=== PATIENT | male | born 1945 | race American Indian/Alaskan Native ===

== ENCOUNTER 2016-12-15 07:35 | Inpatient (IN) | payer MEDICARE, OTHER ==
[2016-12-15 08:35] LABS: BASO # 0.1 K/uL (0.0-0.2); EOS # 0.1 K/uL (0.0-0.7); EOS % 1.3 % (0.0-4.0); HEMATOCRIT 24.9 % (35.0-51.0); LYMPH # 2.2 K/uL (1.0-4.3); LYMPH % 22.2 % (20.0-40.0); MEAN CORPUSCULAR HEMOGLOBIN 17.2 pg (27.0-31.0); MEAN CORPUSCULAR HGB CONC 26.6 g/dL (33.0-37.0); MEAN PLATELET VOLUME 7.4 fL (7.2-11.7); MONO % 10.3 % (0.0-10.0); NRBC % 0.1 % (0.0-2.0); RED CELL DISTRIBUTION WIDTH 19.2 % (11.5-14.5); WHITE BLOOD COUNT 9.8 K/uL (4.8-10.8)
[2016-12-15 08:41] LABS: CHLORIDE 103 mmol/L (98-107); POTASSIUM 3.7 mmol/L (3.6-5.2); SODIUM 139 mmol/L (132-148)
[2016-12-15 08:43] LABS: BILIRUBIN,TOTAL 0.2 mg/dL (0.2-1.3); GFR AFRICAN-AMERICAN > 60; MEAN CELL VOLUME 64.8 fL (80.0-94.0)
[2016-12-15 08:44] LABS: ALB/GLOB RATIO 1.1 (1.0-2.1); ALKALINE PHOSPHATASE 111 U/L (38-126); ALT/SGPT 14 U/L (21-72); AST/SGOT 21 U/L (17-59); BLOOD UREA NITROGEN 9 mg/dL (9-20); CARBON DIOXIDE 24 mmol/L (22-30); GLUCOSE,RANDOM 130 mg/dL (75-110); TOTAL PROTEIN 7.8 g/dL (6.3-8.3)
[2016-12-15 08:45] LABS: CALCIUM 9.4 mg/dl (8.6-10.4)
[2016-12-15 08:52] LABS: INR 1.2
--- NOTE | 2016-12-15 09:55 | CP.PCM.PN ---
Subjective - Date & Time of Evaluation Date of Evaluation: 12/15/16 Time of Evaluation: 09:30 - Subjective Subjective: Medicine note- Dr. Parsons's service Patient was seen and examined at bedside. Patient was sent in by Dr. Parsons after being told that he was anemic on labs done the previous week. Patient reports no complaints at all. He has a hx of Htn, and his last bloodwork before last week was about 2 years ago. He denies any chest pain, palpitations, dyspnea , dizziness, lightheadedness, bloody or black stools. Patient report she is compliant with his BP med. Last colonoscopy was about 3 years ago. Objective - Vital Signs/Intake and Output Vital Signs (last 24 hours): Temp Pulse Resp BP Pulse Ox 98.2 F 111 H 16 145/68 100 12/15/16 07:45 12/15/16 07:45 12/15/16 07:45 12/15/16 07:45 12/15/16 07:45 - Medications Medications: Current Medications Amlodipine Besylate (Norvasc) 10 mg PO DAILY [facility] Famotidine (Pepcid) 20 mg PO BID [facility] Home Med (Amlodipine Besylate/Benazepril [Amlodipine-Benazepril 10-20 Mg]) 1 cap PO DAILY [facility] - Labs Labs: 12/15/16 08:27 12/15/16 08:27 PT 13.6 SECONDS (9.7-12.2) H 12/15/16 08:27 INR 1.2 12/15/16 08:27 APTT 29 SECONDS (21-34) 12/15/16 08:27 - Constitutional Appears: Non-toxic, No Acute Distress - Head Exam Head Exam: ATRAUMATIC, NORMAL INSPECTION, NORMOCEPHALIC - Eye Exam Pupil Exam: NORMAL ACCOMODATION, PERRL - ENT Exam ENT Exam: Mucous Membranes Moist - Respiratory Exam Respiratory Exam: Clear to Ausculation Bilateral, NORMAL BREATHING PATTERN. absent: Prolonged Expiratory Phase, Rales, Rhonchi, Wheezes - Cardiovascular Exam Cardiovascular Exam: REGULAR RHYTHM, +S1, +S2 - GI/Abdominal Exam GI & Abdominal Exam: Soft, Normal Bowel Sounds. absent: Tenderness, Diminished Bowel Sounds, Hypoactive Bowel Sounds - Extremities Exam Extremities Exam: Normal Capillary Refill, Normal Inspection - Neurological Exam Neurological Exam: Alert, Awake, Oriented x3 - Psychiatric Exam Psychiatric exam: Normal Affect, Normal Mood - Skin Skin Exam: Dry, Intact, Normal Color, Warm Assessment and Plan (1) Severe anemia Assessment & Plan: Hgb on admission - 6.6 Hct 24.9 Transfuse 2U PRBC Consult hemeonc- Dr. Aston emerson Consult GI- Dr. Quinonez f/u B12, Folate, Iron Studies f/u stool occult Status: Acute (2) Hypertension Assessment & Plan: Continue home med:Norvasc 10mg PO Daily, Enalapril 10mg PO Daily (equivalent to home Benazepril) Status: Acute (3) Prophylactic measure Assessment & Plan: SCDs Pepcid 20mg PO BID Status: Acute
--- NOTE | 2016-12-15 10:02 | C.PDOC ---
History Of Present Illness 71-year-old male, PMHx includes Hypertension, is sent to the emergency department by Dr Parsons due to abnormal labs. Patient w/ no physical complaints at this time. Denies any blood in urine or stool. No other complaints at this time. Chief Complaint (Nursing): Abnormal Labs History Per: Patient History/Exam Limitations: no limitations Past Medical History Reviewed: Historical Data, Nursing Documentation, Vital Signs Vital Signs: Last Vital Signs Temp 99.1 F 12/15/16 13:17 Pulse 86 12/15/16 13:17 Resp 18 12/15/16 13:17 BP 122/59 L 12/15/16 13:17 Pulse Ox 98 12/15/16 13:17 - Medical History PMH: HTN Family History: States: Unknown Family Hx - Social History Hx Alcohol Use: No Hx Substance Use: No - Immunization History Hx Tetanus Toxoid Vaccination: No Hx Influenza Vaccination: No Hx Pneumococcal Vaccination: No Review Of Systems Except As Marked, All Systems Reviewed And Found Negative. Constitutional: Negative for: Fever, Chills Respiratory: Negative for: Shortness of Breath Gastrointestinal: Negative for: Vomiting Skin: Negative for: Rash Neurological: Negative for: Weakness, Numbness Physical Exam - Physical Exam Appears: Non-toxic, No Acute Distress Skin: Warm, Dry, No Rash Head: Atraumatic, Normacephalic Eye(s): bilateral: Normal Inspection, PERRL Nose: Normal Oral Mucosa: Moist Lips: Normal Appearing Neck: Normal ROM Respiratory: No Accessory Muscle Use Extremity: Normal ROM Neurological/Psych: Oriented x3, Normal Speech ED Course And Treatment - Laboratory Results Result Diagrams: 12/15/16 08:27 12/15/16 08:27 O2 Sat by Pulse Oximetry: 100 Medical Decision Making Medical Decision Making: Case discussed w/ Dr Parsons, states to admit patient under his service. Disposition - Disposition Disposition Time: 08:50 Condition: STABLE - Clinical Impression Clinical Impression: Anemia - Scribe Statement The provider has reviewed the documentation as recorded by the Efren Murray All medical record entries made by the Scribe were at my direction and personally dictated by me. I have reviewed the chart and agree that the record accurately reflects my personal performance of the history, physical exam, medical decision making, and the department course for this patient. I have also personally directed, reviewed, and agree with the discharge instructions and disposition.
--- NOTE | 2016-12-15 11:45 | HP ---
The patient is a 71-year-old male admitted to the hospital with chief complaint of severe anemia. Th e patient has hemoglobin of 6.1. The patient decided to come to the Emergency Room for further manage ment of severe anemia. The patient ____ hypertension. The patient denies hemoptysis or hematemesis o r melena. Denies abdominal pain. The patient said he had ____ in [facility]. He underwent __ __ colostomy which was normal. The patient ____ workup. PHYSICAL EXAMINATION: GENERAL: The patient is awake, alert and oriented. VITAL SIGNS: Temperature 98, pulse 90. HEENT: Within normal limits. NECK: Supple. CHEST: Symmetrical. HEART: Regular. ABDOMEN: Soft. EXTREMITIES: No edema. The patient suffers from severe anemia. The patient is ____ gastrointestinal evaluation and hematolo gy evaluation. Supportive care. Have blood transfusion. Stephanie Bond MD cc: [id number] TT: 12/15/2016 10:53:05 sc
[2016-12-15 11:48] LABS: RETIC% 2.3 % (0.5-1.5)
[2016-12-15 12:55] LABS: FOLATE > 20.0 ng/mL
[2016-12-15] MEDS ORDERED: Peg-Electrolyte Oral Soln 4L (Golytely) PO ONE (13:00)
[2016-12-15 14:56] LABS: PROSTATE SPECIFIC ANTIGEN 6.31 ng/mL (0.00-4.0)
[2016-12-15 14:58] LABS: CA 19-9 < 1.4 U/mL (0-37)
[2016-12-15] MEDS ORDERED: Bisacodyl 5mg EC Tab PO ONE (17:00)
--- NOTE | 2016-12-16 03:46 | CP.PCM.CON ---
History of Present Illness - History of Present Illness History of Present Illness: 71 year old male with a history of HTN admitted with anemia. The patient was found to have a low hgb by his PMD and told to come to the hospital. He denies known bleeding and bruising. He denies chest pain and shortness of breath. He does admit to progressive fatigue and diminished appetite. Past medical history: HTN Past surgical history: None Family history: Father had stomach cancer Social history: 1/2ppd x 45 years, denies alcohol and illicit drug use. Allergies: NKA Review of systems: All remaining review of systems including HEENT, cardiovascular, respiratory, gastrointestinal, genitourinary, musculoskeletal, dermatologic, neurologic, and psychiatric are negative unless mentioned in the HPI. Past Patient History - Infectious Disease Hx of Infectious Diseases: None - Past Medical History & Family History Past Medical History?: Yes - Past Social History Smoking Status: Light Smoker < 10 Cigarettes Daily - CARDIAC Hx Cardiac Disorders: Yes Hx Hypertension: Yes - PULMONARY Hx Respiratory Disorders: No - NEUROLOGICAL Hx Neurological Disorder: No - HEENT Hx HEENT Problems: No - RENAL Hx Chronic Kidney Disease: No - ENDOCRINE/METABOLIC Hx Endocrine Disorders: No - HEMATOLOGICAL/ONCOLOGICAL Hx Blood Disorders: No - INTEGUMENTARY Hx Dermatological Problems: No - MUSCULOSKELETAL/RHEUMATOLOGICAL Hx Musculoskeletal Disorders: No Hx Falls: No - GASTROINTESTINAL Hx Gastrointestinal Disorders: No - GENITOURINARY/GYNECOLOGICAL Hx Genitourinary Disorders: No - PSYCHIATRIC Hx Psychophysiologic Disorder: No Hx Substance Use: No - SURGICAL HISTORY Hx Surgeries: No - ANESTHESIA Hx Anesthesia: No Meds Allergies/Adverse Reactions: Allergies Allergy/AdvReac Type Severity Reaction Status Date / Time No Known Allergies Allergy Verified 12/15/16 07:50 - Medications Medications: Current Medications Amlodipine Besylate (Norvasc) 10 mg PO DAILY [facility] Last Admin: 12/15/16 10:59 Dose: Not Given Enalapril Maleate (Vasotec) 10 mg PO DAILY [facility] Last Admin: 12/15/16 10:59 Dose: Not Given Famotidine (Pepcid) 20 mg PO BID [facility] Last Admin: 12/15/16 18:02 Dose: 20 mg Ferric Sodium Gluconate Complex (Ferrlecit) 125 mg IVPB DAILY [facility] Stop: 12/20/16 10:01 Metoclopramide HCl (Reglan) 5 mg IVP ACHS [facility] Last Admin: 12/15/16 22:09 Dose: 5 mg Physical Exam - Head Exam Head Exam: ATRAUMATIC - Eye Exam Eye Exam: Normal appearance - ENT Exam ENT Exam: Mucous Membranes Dry - Respiratory Exam Respiratory Exam: NORMAL BREATHING PATTERN - Cardiovascular Exam Cardiovascular Exam: +S1, +S2 - GI/Abdominal Exam GI & Abdominal Exam: Normal Bowel Sounds - Extremities Exam Extremities exam: Positive for: normal inspection - Neurological Exam Neurological exam: Oriented x3 - Psychiatric Exam Psychiatric exam: Normal Affect, Normal Mood - Skin Skin Exam: Warm Results - Vital Signs Recent Vital Signs: Last Vital Signs Temp 98.4 F 12/16/16 00:00 Pulse 79 12/16/16 00:00 Resp 20 12/16/16 00:00 BP 129/63 12/16/16 00:00 Pulse Ox 100 12/16/16 00:00 - Labs Result Diagrams: 12/15/16 08:27 12/15/16 08:27 Labs: Laboratory Results - last 24 hr 12/15/16 12/15/16 11:34 14:05 % Saturation 4 L Carcinoembryonic Ag 4.0 H CA 19-9 Antigen < 1.4 Prostate Specific Ag 6.31 H Assessment & Plan (1) Anemia Assessment and Plan: work up consistent with iron deficiency for GI evaluation s/p PRBC transfusion IV iron Status: Acute (2) Elevated CEA Assessment and Plan: for GI evaluation Status: Acute (3) PSA elevation Assessment and Plan: outpatient urologic evaluation Status: Acute
[2016-12-16 05:17] LABS: TOTAL PROTEIN, SERUM 6.9 g/dL (6.1-8.1)
[2016-12-16 07:33] LABS: CHLORIDE 103 mmol/L (98-107); POTASSIUM 3.9 mmol/L (3.6-5.2); SODIUM 138 mmol/L (132-148)
[2016-12-16 07:35] LABS: GFR AFRICAN-AMERICAN > 60
[2016-12-16 07:36] LABS: ALKALINE PHOSPHATASE 117 U/L (38-126); ALT/SGPT 16 U/L (21-72); AST/SGOT 24 U/L (17-59); BILIRUBIN,TOTAL 0.8 mg/dL (0.2-1.3); BLOOD UREA NITROGEN 7 mg/dL (9-20); CALCIUM 8.9 mg/dl (8.6-10.4); CARBON DIOXIDE 26 mmol/L (22-30); GLUCOSE,RANDOM 82 mg/dL (75-110); TOTAL PROTEIN 7.5 g/dL (6.3-8.3)
[2016-12-16 07:38] LABS: BASO # 0.1 K/uL (0.0-0.2); BASO % 0.8 % (0.0-2.0); EOS # 0.2 K/uL (0.0-0.7); EOS % 1.5 % (0.0-4.0); HEMATOCRIT 30.9 % (35.0-51.0); LYMPH # 2.6 K/uL (1.0-4.3); LYMPH % 24.7 % (20.0-40.0); MEAN CORPUSCULAR HEMOGLOBIN 19.1 pg (27.0-31.0); MEAN CORPUSCULAR HGB CONC 28.4 g/dL (33.0-37.0); MEAN PLATELET VOLUME 7.6 fL (7.2-11.7); MONO # 1.1 K/uL (0.0-0.8); MONO % 10.9 % (0.0-10.0); NRBC % 0.1 % (0.0-2.0); RED CELL DISTRIBUTION WIDTH 22.2 % (11.5-14.5); WHITE BLOOD COUNT 10.5 K/uL (4.8-10.8)
[2016-12-16 07:45] LABS: MEAN CELL VOLUME 67.4 fL (80.0-94.0)
--- NOTE | 2016-12-16 10:45 | CP.PCM.PN ---
Subjective - Date & Time of Evaluation Date of Evaluation: 12/16/16 Time of Evaluation: 09:00 - Subjective Subjective: Medicine Progress Note- Dr. Parsons's Service: Patient seen and examined at bedside this AM. Patient is NPO for EGD this AM. Patient is s/p units of PRBC transfused overnight. Patient tolerated transfusion without any issues. He was NPO overnight for EGD. Objective - Vital Signs/Intake and Output Vital Signs (last 24 hours): Temp Pulse Resp BP Pulse Ox 98.3 F 71 20 115/67 100 12/16/16 07:48 12/16/16 07:48 12/16/16 07:48 12/16/16 10:39 12/16/16 07:48 Intake and Output: 12/16/16 12/16/16 06:59 18:59 Intake Total 0 Balance 0 - Medications Medications: Current Medications Amlodipine Besylate (Norvasc) 10 mg PO DAILY [facility] Last Admin: 12/16/16 10:43 Dose: Not Given Enalapril Maleate (Vasotec) 10 mg PO DAILY [facility] Last Admin: 12/16/16 10:39 Dose: 10 mg Famotidine (Pepcid) 20 mg PO BID [facility] Last Admin: 12/16/16 09:40 Dose: Not Given Ferric Sodium Gluconate Complex (Ferrlecit) 125 mg IVPB DAILY [facility] Stop: 12/20/16 10:01 Metoclopramide HCl (Reglan) 5 mg IVP ACHS [facility] Last Admin: 12/16/16 08:30 Dose: 5 mg - Labs Labs: 12/16/16 07:13 12/16/16 07:13 PT 13.6 SECONDS (9.7-12.2) H 12/15/16 08:27 INR 1.2 12/15/16 08:27 APTT 29 SECONDS (21-34) 12/15/16 08:27 - Constitutional Appears: No Acute Distress - Head Exam Head Exam: NORMAL INSPECTION, NORMOCEPHALIC - Eye Exam Eye Exam: EOMI, Normal appearance - ENT Exam ENT Exam: Mucous Membranes Moist - Neck Exam Neck Exam: Normal Inspection - Respiratory Exam Respiratory Exam: Clear to Ausculation Bilateral, NORMAL BREATHING PATTERN - Cardiovascular Exam Cardiovascular Exam: REGULAR RHYTHM, +S1, +S2 - GI/Abdominal Exam GI & Abdominal Exam: Soft. absent: Distended, Tenderness - Extremities Exam Extremities Exam: Full ROM, Normal Inspection - Back Exam Back Exam: NORMAL INSPECTION - Neurological Exam Neurological Exam: Alert, Awake, Oriented x3 - Psychiatric Exam Psychiatric exam: Normal Affect, Normal Mood - Skin Skin Exam: Normal Color, Warm Assessment and Plan - Assessment and Plan (Free Text) Assessment: (1) Severe anemia Assessment & Plan: H/H today 8.8/30.9. H/H admission 6.6/24.9 s/p transfusion last night 2U PRBC Consult hemeonc- Dr. Aston emerson f/u Reticulocyte count and SPEP f/u B12, Folate, Iron Studies Consult GI- Dr. Quinonez As per Dr. Quinonez, patient for EGD/ colonoscopy today. f/u CEA, CA 19-9 and PSA f/u stool occult Status: Acute (2) Hypertension Assessment & Plan: Continue home med:Norvasc 10mg PO Daily, Enalapril 10mg PO Daily (equivalent to home Benazepril) Status: Acute (3) Prophylactic measure Assessment & Plan: SCDs Pepcid 20mg PO BID Status: Acute All management as per Dr. Parsons
[2016-12-16] MEDS ORDERED: Propofol 10 mg/ml Inj (20 ML) ONE (11:23)
[2016-12-16] MEDS: Ferric Sodium Gluconat Complex 62.5 mg/5 ml Vial IVPB SCH (14:29)
[2016-12-16 15:59] VITALS: RESP 20
[2016-12-16 20:20] LABS: BETA 1 GLOBULIN 0.5 g/dL (0.4-0.6); BETA 2 GLOBULIN 0.4 g/dL (0.2-0.5); GAMMA GLOBULIN 1.6 g/dL (0.8-1.7)
[2016-12-17 08:05] LABS: BASO # 0.1 K/uL (0.0-0.2); EOS # 0.2 K/uL (0.0-0.7); EOS % 2.1 % (0.0-4.0); HEMATOCRIT 31.3 % (35.0-51.0); LYMPH # 2.1 K/uL (1.0-4.3); LYMPH % 21.6 % (20.0-40.0); MEAN CELL VOLUME 67.5 fL (80.0-94.0); MEAN CORPUSCULAR HEMOGLOBIN 19.1 pg (27.0-31.0); MEAN CORPUSCULAR HGB CONC 28.3 g/dL (33.0-37.0); MEAN PLATELET VOLUME 7.3 fL (7.2-11.7); MONO # 1.1 K/uL (0.0-0.8); NRBC % 0.1 % (0.0-2.0); RED CELL DISTRIBUTION WIDTH 22.3 % (11.5-14.5); WHITE BLOOD COUNT 9.8 K/uL (4.8-10.8)
[2016-12-17 08:12] LABS: IRON 42 ug/dL (49-181)
[2016-12-17 08:16] LABS: CHLORIDE 104 mmol/L (98-107); SODIUM 141 mmol/L (132-148)
[2016-12-17 08:17] LABS: POTASSIUM 3.7 mmol/L (3.6-5.2)
[2016-12-17 08:19] LABS: ALB/GLOB RATIO 0.9 (1.0-2.1); ALKALINE PHOSPHATASE 116 U/L (38-126); ALT/SGPT 10 U/L (21-72); AST/SGOT 42 U/L (17-59); BILIRUBIN,TOTAL 0.2 mg/dL (0.2-1.3); BLOOD UREA NITROGEN 7 mg/dL (9-20); CALCIUM 9.1 mg/dl (8.6-10.4); CARBON DIOXIDE 24 mmol/L (22-30); GFR AFRICAN-AMERICAN > 60; GLUCOSE,RANDOM 97 mg/dL (75-110); TOTAL PROTEIN 7.3 g/dL (6.3-8.3)
[2016-12-17 08:20] LABS: MAGNESIUM 2.1 mg/dL (1.6-2.3)
[2016-12-17 08:23] VITALS: PULSE 79; TEMP 98.1; O2SAT 99
[2016-12-17] MEDS: Ferric Sodium Gluconat Complex 62.5 mg/5 ml Vial IVPB SCH (09:17)
[2016-12-17 09:20] VITALS: BP 130/58
--- NOTE | 2016-12-17 11:21 | CP.PCM.PN ---
Subjective - Date & Time of Evaluation Date of Evaluation: 12/17/16 Time of Evaluation: 11:00 - Subjective Subjective: [employer] NOTES 71 ye old male admitted for anemia s/p PRBC transfusion s/p - EGD/colnoscopy hgb - improved after transfusion - 8.9>8.8>6.[address] Lico noriega . cleared for discharge home today and f/u with Dr. Lico noriega and Dr. Camarillo office in 1 week Discharge instructions discussed with patient , who understands and agree with plan Pt instructed to returns to ED if symptoms returns Objective - Vital Signs/Intake and Output Vital Signs (last 24 hours): Temp Pulse Resp BP Pulse Ox 98.1 F 79 20 130/58 L 99 12/17/16 08:00 12/17/16 08:00 12/17/16 08:00 12/17/16 09:18 12/17/16 08:00 Intake and Output: 12/17/16 12/17/16 06:59 18:59 Intake Total 250 120 Balance 250 120 - Medications Medications: Current Medications Amlodipine Besylate (Norvasc) 10 mg PO DAILY [facility] Last Admin: 12/17/16 09:20 Dose: 10 mg Enalapril Maleate (Vasotec) 10 mg PO DAILY [facility] Last Admin: 12/17/16 09:18 Dose: 10 mg Famotidine (Pepcid) 20 mg PO BID [facility] Last Admin: 12/17/16 09:18 Dose: 20 mg Ferric Sodium Gluconate Complex (Ferrlecit) 125 mg IVPB DAILY [facility] Stop: 12/20/16 10:01 Last Admin: 12/17/16 09:17 Dose: 125 mg Fluconazole (Diflucan) 200 mg PO DAILY [facility] Last Admin: 12/17/16 09:20 Dose: 200 mg Metoclopramide HCl (Reglan) 5 mg IVP ACHS [facility] Last Admin: 12/17/16 07:14 Dose: 5 mg - Labs Labs: 12/17/16 07:52 12/17/16 07:52 PT 13.6 SECONDS (9.7-12.2) H 12/15/16 08:27 INR 1.2 12/15/16 08:27 APTT 29 SECONDS (21-34) 12/15/16 08:27
--- NOTE | 2016-12-17 11:23 | PN ---
DATE: 12/17/2016 LOCATION: 357, bed A. This 71-year-old male seen and examined at rounds without significant clinical changes or reported ac tive bleeding, tolerating oral intake well; appeared to be awake, alert, oriented. The entire chart is reviewed including, but not limited to most recent lab and radiology study result s, current and the previous medication lists, current and the previous medical events. Case discusse d at length this morning with Dr. Stephanie Bond. Most recent lab result showed low hemoglobin of 8.9 with low hematocrit 31.3 with low indices highly suggestive of hypochromic microcytic anemia, but with normal platelet count with low BUN 7 and low AL T to 10. PHYSICAL EXAMINATION: GENERAL: A 71-year-old male. VITAL SIGNS: Afebrile with blood pressure of 126/56, awake, alert, oriented, complaining of no abdom inal pain. HEENT: Showed pale, dry oral mucoid membrane. Nonicteric sclerae. LUNGS: Few scattered crepitation, decreased air entry at bases. HEART: Positive S1 and S2. ABDOMEN: Soft. Bowel sounds are present. No mass or organomegaly. No rebound tenderness or guardi ng. RECTAL: Positive tone. Vault is empty. EXTREMITIES: Without significant edema, clubbing or cyanosis. NEUROLOGIC: No reported new neurological deficits, sensory or motor. IMPRESSION: 1. Peptic ulcer disease. 2. Colon polyp, removed. Pathology report still pending. 3. Known history of hypertension. 4. Anemia, hypochromic microcytic, most likely secondary to above. 5. Mild coagulopathy with increased PT to 13.6, nonsignificant. 6. Increased PSA to 6.3, the patient will need urology evaluation, could be done as outpatient. SUGGESTION: 1. Agree with your plan. 2. Continue current management. 3. Due to the patient's esophageal candidiasis, Diflucan 200 mg 1 tablet q. day for the following 2 weeks is to be ordered. 4. The patient will need followup due his recently diagnosed gastric ulcer and followup colonoscopy after 1-3 years pending the outcome of the pathology report to be kept in mind. Low Quinonez MD cc: 14 TT: 12/17/2016 11:22:38 Confirmation # [id number] Dictation # [id number] tn
--- NOTE | 2016-12-18 09:06 | CON ---
DATE: 12/15/[address] Low Quinonez to Dr. Stephanie Bond. I was called for GI consultation by the admitting MD. The patient is seen and fully examined for GI consultation on 12/15/2016 as requested by the ER staff as well as the admitting medical staff for GI consultation. The entire chart is reviewed, including but not limited to, the most recent lab and radiology study r esults, current and previous medication lists, current and previous medical events, allergy to medica tion list as well as all the available current and previous medical records. Case discussed at [facility] with the ER staff as well as Dr. Stephanie Bond at the time of my GI consultation. This is a 71-year-old male who was admitted to the hospital through the Emergency Room with reported low hemoglobin and hematocrit with a complaint of mild generalized fatigue and weakness. No reported active bleeding by the patient or his at that time, but with loss of appetite. No chest pain, palpitation or significant complaint of shortness of breath. After being admitted to the hospital, patient was found to have hemoglobin of 6.6, hematocrit 24.9 wi th thrombocytosis of 410 with increased blood glucose level to 130. PAST MEDICAL HISTORY: Mainly peptic ulcer disease and hypertension. FAMILY HISTORY: Unknown. SOCIAL HISTORY: No reported known history of cigarette smoking or alcohol intake. CURRENT MEDICATIONS: Lists were reviewed. ALLERGY TO MEDICATIONS: Unclear. PHYSICAL EXAMINATION: GENERAL: A 71-year-old female, appeared to be awake, alert, oriented. VITAL SIGNS: Afebrile with pulse of 84, respiratory rate 20-22, blood pressure 134/62. HEENT: Show pale, dry oral mucoid membrane. Nonicteric sclerae. LUNGS: Few scattered crepitations. Decreased air entry at bases. HEART: Positive S1 and S2. LYMPH NODES: No lymphadenitis or lymphadenopathy. ABDOMEN: Soft with mild generalized tenderness and mild distention. No mass or organomegaly. No re bound tenderness or guarding. RECTAL: Positive tone, guaiac positive stool. EXTREMITIES: With mild lower extremities edematous changes. No clubbing or cyanosis. NEUROLOGIC: No reported new neurological deficit, sensory or motor. IMPRESSION: 1. Severe anemia of unclear etiology, to rule out upper versus lower gastrointestinal blood loss. 2. To rule out occult gastrointestinal malignancy. 3. Known history of hypertension. 4. Elevated blood glucose level of unclear etiology. SUGGESTION: 1. Agree with your plan. 2. Cancer markers. 3. Proton pump inhibitors. 4. Sectional abdominal and pelvic CAT scan. 5. Endoscopic evaluation of the gastrointestinal tract after adequate preparation and when the patie nt is more stable clinically. 6. Further recommendations and evaluation to follow post endoscopic evaluation of the gastrointestin al tract. Thank you for letting me participate in your patient's case management. Blood transfusion to keep hemoglobin around 10 gram percent. Hematology/oncology consult. We will follow up closely with you. Low Quinnoez MD cc: 14 TT: 12/18/2016 09:05:58 Confirmation # [id number] Dictation # [id number]
--- NOTE | 2016-12-19 09:26 | DS ---
A 71-year-old male admitted to the hospital with chief complaint of severe anemia. The patient was f ound to have hemoglobin of 6. The patient underwent blood transfusion. Underwent endoscopy and colo noscopy, shows diverticulosis, gastritis. Seen by hematology for IV iron. The patient discharged on p.o. Protonix, on p.o. iron. Monitor hemoglobin as outpatient. Stephanie Bond MD cc: [id number] TT: 12/18/2016 13:52:31 en
== END 2016-12-17 13:02 | disposition home or self-care (01) | DRG 812 ==
LOC: C.ER 07:35 → C.9E 09:15 → C.3T 16:49
PROVIDERS: ADMIT Internal Medicine Pulmonary Disease; ATTEND Internal Medicine Pulmonary Disease
PROC: 30233N1 Transfusion of Nonautologous Red Blood Cells into Peripheral Vein, Percutaneous Approach (ICD-10-PCS; principal; 2016-12-15)
PROC: 0DBN8ZX Excision of Sigmoid Colon, Via Natural or Artificial Opening Endoscopic, Diagnostic (ICD-10-PCS; 2016-12-16)
PROC: 0DBM8ZX Excision of Descending Colon, Via Natural or Artificial Opening Endoscopic, Diagnostic (ICD-10-PCS; 2016-12-16)
PROC: 0DB68ZX Excision of Stomach, Via Natural or Artificial Opening Endoscopic, Diagnostic (ICD-10-PCS; 2016-12-16 11:15)
DX: D50.9 Iron deficiency anemia, unspecified (principal); B37.81 Candidal esophagitis; D12.7 Benign neoplasm of rectosigmoid junction; K29.00 Acute gastritis without bleeding; K25.9 Gastric ulcer, unspecified as acute or chronic, without hemorrhage or perforation; K44.9 Diaphragmatic hernia without obstruction or gangrene; K58.9 Irritable bowel syndrome, unspecified; K64.8 Other hemorrhoids; R73.9 Hyperglycemia, unspecified; R97.0 Elevated carcinoembryonic antigen [CEA]; R97.20 Elevated prostate specific antigen [PSA]; I10 Essential (primary) hypertension; F17.210 Nicotine dependence, cigarettes, uncomplicated

== ENCOUNTER 2016-12-19 08:28 | Inpatient (IN) | payer MEDICARE, OTHER ==
--- NOTE | 2016-12-19 09:04 | C.PDOC ---
History Of Present Illness 71-year-old male, PMHx includes Hypertension and Anemia, presents to the emergency department with complaints of chest pain. Patient states he has been experiencing new onset right sided chest pain that started several days ago. Pain is intermittent in nature, non-exertional and non-radiating. Associated with occasional nausea. Denies shortness of breath. Patient states he was recently discharged from hospital s/p workup for GI bleed; Patient had transfusion. No prior Hx of cardiac stress test/CAD. Time Seen by Provider: 12/19/16 08:46 Chief Complaint (Nursing): Chest Pain History Per: Patient History/Exam Limitations: no limitations Past Medical History Reviewed: Historical Data, Nursing Documentation, Vital Signs Vital Signs: Last Vital Signs Temp 97.9 F 12/19/16 08:32 Pulse 102 H 12/19/16 08:32 Resp 22 12/19/16 08:32 BP 158/76 H 12/19/16 08:32 Pulse Ox 100 12/19/16 11:06 - Medical History PMH: Anemia, HTN Denies: Chronic Kidney Disease Family History: States: Unknown Family Hx - Social History Hx Alcohol Use: No Hx Substance Use: No - Immunization History Hx Tetanus Toxoid Vaccination: No Hx Influenza Vaccination: No Hx Pneumococcal Vaccination: No Review Of Systems Except As Marked, All Systems Reviewed And Found Negative. Constitutional: Negative for: Fever, Chills Cardiovascular: Positive for: Chest Pain Respiratory: Negative for: Shortness of Breath Gastrointestinal: Positive for: Nausea. Negative for: Vomiting Musculoskeletal: Negative for: Neck Pain, Arm Pain, Back Pain Skin: Negative for: Rash Neurological: Negative for: Weakness, Numbness, Headache, Dizziness Physical Exam - Physical Exam Appears: Non-toxic, No Acute Distress Skin: Warm, Dry, No Rash Head: Atraumatic, Normacephalic Eye(s): bilateral: Normal Inspection, PERRL Nose: Normal Oral Mucosa: Moist Lips: Normal Appearing Neck: Normal ROM Cardiovascular: Rhythm Regular Respiratory: Normal Breath Sounds, No Accessory Muscle Use Extremity: Normal ROM Neurological/Psych: Oriented x3, Normal Speech ED Course And Treatment - Laboratory Results Result Diagrams: 12/19/16 09:31 12/19/16 09:31 ECG: Interpreted By Nm ECG Rhythm: Sinus Rhythm Interpretation Of ECG: ST DEPRESSION V2-V3 TWI V6 Rate From EC O2 Sat by Pulse Oximetry: 100 Pulse Ox Interpretation: Normal Progress - Re-Evaluation Re-evaluation Note: 12/19/16 10:31 PERSIST CP D/W PMD AWARE OF ER FINDINGS WILL ADMIT. CONSULT DR TRAORE 12/19/16 10:35 RESIDUAL CHEST PAIN, LIMITED IMPROVE W NG PASTE. VSS. DEFER ASA, HEPARIN DUE TO HO RECENT GI BLEED. 12/19/16 10:46 EKG#2: ST DEPRESSION RESOLVED, PERSIST TWI. HR 90 12/19/16 10:58 D/W DR TRAORE. ADVISED OF RECENT GI REPORT. WILL CONSULT, LOVENOX 60 MG X 1, ASA 325MG, CONSULT GI PRIOR TO POSSIBLE CATH 12/19/16 11:05 D/W DR KILPATRICK ACCEPTS FOR ICU 12/19/16 11:10 D/W DR SINGH, CLEARED TO RECEIVE PLAVIX - Data Reviewed Data Reviewed: Lab, Diagnostic imaging, EKG, Old records - Critical Care Citical Care: Excluding Proc Time Critical Care Time: 90 minutes - Continuity of Care Discussed patient case with:: Patient, Family-HIPPA compliant, PMD Discussed pt. case with healthcare network pricing consultant/specialty: Cardiology, Gastroenterology, Pulmonary/Crit. Care Medical Decision Making Medical Decision Making: Impression 71y/o M w/ new onset right-sided CP. Plan: * EKG * CMP, Trop I * CBC, PTT, PT * Chest X-Ray * Nitroglycerin * Reassess and Disposition Disposition Counseled Patient/Family Regarding: Studies Performed, Diagnosis - Disposition Disposition: HOSPITALIZED Disposition Time: 10:32 Condition: SERIOUS - POA Present On Arrival: None - Clinical Impression Clinical Impression: Acute non-ST segment elevation myocardial infarction - Scribe Statement The provider has reviewed the documentation as recorded by the Efren Murray All medical record entries made by the Shanelleibthierno were at my direction and personally dictated by me. I have reviewed the chart and agree that the record accurately reflects my personal performance of the history, physical exam, medical decision making, and the department course for this patient. I have also personally directed, reviewed, and agree with the discharge instructions and disposition. Decision To Admit - Pt Status Changed To: Hospital Disposition Of: Inpatient - Admit Certification Admit to Inpatient:: After my assessment, the patient will require hospitalization for at least two midnights. This is because of the severity of symptoms shown, intensity of services needed, and/or the medical risk in this patient being treated as an outpatient. - InPatient: Physician Admission Certification: I certify that this patient requires 2 or more midnights of care for the following reason:: SEE NOTE - . Bed Request Type: ICU Admitting Physician: Stephanie Parsons Patient Diagnosis: Acute non-ST segment elevation myocardial infarction
--- NOTE | 2016-12-19 09:04 | C.PDOC ---
History Of Present Illness 71-year-old male, presents to the emergency department with complaints of Time Seen by Provider: 12/19/16 08:46 Chief Complaint (Nursing): Chest Pain Past Medical History Vital Signs: Last Vital Signs Temp 97.9 F 12/19/16 08:32 Pulse 102 H 12/19/16 08:32 Resp 22 12/19/16 08:32 BP 158/76 H 12/19/16 08:32 Pulse Ox 100 12/19/16 08:32 - Medical History PMH: Anemia, HTN Denies: Chronic Kidney Disease Family History: States: Unknown Family Hx - Social History Hx Alcohol Use: No Hx Substance Use: No - Immunization History Hx Tetanus Toxoid Vaccination: No Hx Influenza Vaccination: No Hx Pneumococcal Vaccination: No ED Course And Treatment O2 Sat by Pulse Oximetry: 100 - Scribe Statement The provider has reviewed the documentation as recorded by the Shanelleibthierno Murray All medical record entries made by the Shanelleibthierno were at my direction and personally dictated by me. I have reviewed the chart and agree that the record accurately reflects my personal performance of the history, physical exam, medical decision making, and the department course for this patient. I have also personally directed, reviewed, and agree with the discharge instructions and disposition.
[2016-12-19] MEDS ORDERED: Nitroglycerin 2% Ointment Foilpak UD TOP STA (09:13)
[2016-12-19] MEDS ORDERED: Nitroglycerin 2% Ointment Foilpak UD TOP ONE (09:33)
[2016-12-19 09:42] LABS: BASO # 0.1 K/uL (0.0-0.2); BASO % 0.5 % (0.0-2.0); CHLORIDE 101 mmol/L (98-107); HEMATOCRIT 33.5 % (35.0-51.0); LYMPH # 1.1 K/uL (1.0-4.3); LYMPH % 6.6 % (20.0-40.0); MEAN CELL VOLUME 68.2 fL (80.0-94.0); MEAN CORPUSCULAR HEMOGLOBIN 19.3 pg (27.0-31.0); MEAN CORPUSCULAR HGB CONC 28.2 g/dL (33.0-37.0); MEAN PLATELET VOLUME 7.6 fL (7.2-11.7); MONO # 1.3 K/uL (0.0-0.8); MONO % 7.7 % (0.0-10.0); PLATELET COUNT 405 K/uL (130-400); RED CELL DISTRIBUTION WIDTH 23.6 % (11.5-14.5)
[2016-12-19 09:43] LABS: POTASSIUM 4.1 mmol/L (3.6-5.2); SODIUM 136 mmol/L (132-148)
[2016-12-19 09:44] LABS: WHITE BLOOD COUNT 17.5 K/uL (4.8-10.8)
[2016-12-19 09:45] LABS: ALKALINE PHOSPHATASE 140 U/L (38-126); AST/SGOT 180 U/L (17-59); BILIRUBIN,TOTAL 0.2 mg/dL (0.2-1.3); BLOOD UREA NITROGEN 7 mg/dL (9-20); CARBON DIOXIDE 25 mmol/L (22-30); GFR AFRICAN-AMERICAN > 60; INR 1.2; TOTAL PROTEIN 8.6 g/dL (6.3-8.3)
[2016-12-19 09:46] LABS: ALT/SGPT 27 U/L (21-72); CALCIUM 9.5 mg/dl (8.6-10.4); GLUCOSE,RANDOM 117 mg/dL (75-110)
[2016-12-19 10:11] LABS: NEUTROPHIL 85 % (50-75); REACTIVE LYMPHOCYTES 2 % (0-0); TOTAL CELLS COUNTED 100
[2016-12-19 10:13] LABS: GIANT PLATELETS PRESENT; LARGE PLATELETS PRESENT
--- NOTE | 2016-12-19 10:21 | RAD ---
PROCEDURE: CHEST RADIOGRAPH, 1 VIEW HISTORY: chest pain COMPARISON: None available. FINDINGS: LUNGS: Mild hazy opacity in the lung bases. Mild increased pulmonary vascular congestion. PLEURA: No pneumothorax or pleural fluid seen.Biapical pleural parenchymal thickening noted. CARDIOVASCULAR: Normal. OSSEOUS STRUCTURES: The osseous structures demonstrate degenerative changes. VISUALIZED UPPER ABDOMEN: Upper abdomen is suboptimally evaluated. OTHER FINDINGS: None. IMPRESSION: Mild hazy opacity in the lung bases with increased pulmonary vascular congestion.
[2016-12-19 10:43] LABS: RBC URINE 1 /hpf (0-3); URINE BILIRUBIN NEGATIVE (NEGATIVE); URINE BLOOD NEGATIVE (NEGATIVE); URINE COLOR Yellow (YELLOW); URINE GLUCOSE (UA) NORMAL (Normal); URINE KETONE NEGATIVE (NEGATIVE); URINE LEUKOCYTE ESTERASE NEG Leu/uL (Negative); URINE PROTEIN 1+ mg/dL (NEGATIVE); URINE UROBILINOGEN NORMAL mg/dL (0.2-1.0); WBC URINE 1 /hpf (0-5)
[2016-12-19] MEDS ORDERED: Enoxaparin 40 mg Syringe SC STA (11:07)
--- NOTE | 2016-12-19 11:14 | CP.PCM.CON ---
History of Present Illness - History of Present Illness History of Present Illness: Critical Care Consult Note HPI: 71 M with PMHx of HTN presents to the ED complaining of chest pain that started yesterday. He was sitting around watching TV when he started to have right sided, burning chest pain that radiated down to his abdomen. This is the first time he had this pain, it was an 8/10. Patient took an ASA and started the pain remained for about 3-4 hours. This morning the patient woke up with the pain, so he came to the ED. Patient was admitted on 12/15/16 for low hemoglobin. He was admitted, transfused, and underwent and EGD and colonoscopy which showed he had peptic ulcer disease and a gastric polyp which was removed and biopsied. Patient also had an elevated CEA and PSA which need to be followed up as an outpatient. Denied fever, chills, headache, chest pain, abdominal pain, changes in bowel movements, no urinary symptoms or active bleeding. PMHx: HTN PSHx: Denied Meds: Protonix 40mg PO daily, Amlodipine Besylate/ Benazepril 1 cap PO daily, All: NKDA SHx: Admitted to smoking / [facility] for 50 years, denied alcohol or illicit drug use FHx: Unremarkable PMD: Dr. Stephanie aPrsons Past Patient History - Infectious Disease Hx of Infectious Diseases: None - Past Medical History & Family History Past Medical History?: Yes - Past Social History Smoking Status: Heavy Smoker > 10 Cigarettes Daily - CARDIAC Hx Hypertension: Yes - PULMONARY Hx Respiratory Disorders: No - NEUROLOGICAL Hx Neurological Disorder: No - HEENT Hx HEENT Problems: No - RENAL Hx Chronic Kidney Disease: No - ENDOCRINE/METABOLIC Hx Endocrine Disorders: No - HEMATOLOGICAL/ONCOLOGICAL Hx Anemia: Yes - INTEGUMENTARY Hx Dermatological Problems: No - MUSCULOSKELETAL/RHEUMATOLOGICAL Hx Musculoskeletal Disorders: No Hx Falls: No - GASTROINTESTINAL Hx Gastrointestinal Disorders: No - GENITOURINARY/GYNECOLOGICAL Hx Genitourinary Disorders: No - PSYCHIATRIC Hx Substance Use: No - SURGICAL HISTORY Hx Surgeries: No - ANESTHESIA Hx Anesthesia: No Meds Allergies/Adverse Reactions: Allergies Allergy/AdvReac Type Severity Reaction Status Date / Time No Known Allergies Allergy Verified 12/15/16 07:50 Physical Exam - Constitutional Appears: No Acute Distress - Head Exam Head Exam: ATRAUMATIC, NORMAL INSPECTION, NORMOCEPHALIC - Eye Exam Eye Exam: EOMI, Normal appearance, PERRL Pupil Exam: NORMAL ACCOMODATION, PERRL - ENT Exam ENT Exam: Mucous Membranes Moist, Normal Exam - Neck Exam Neck exam: Positive for: Normal Inspection - Respiratory Exam Respiratory Exam: Clear to Auscultation Bilateral, NORMAL BREATHING PATTERN. absent: Decreased Breath Sounds, Respiratory Distress - Cardiovascular Exam Cardiovascular Exam: REGULAR RHYTHM, RRR, +S1, +S2 - GI/Abdominal Exam GI & Abdominal Exam: Normal Bowel Sounds, Soft. absent: Distended, Tenderness - Rectal Exam Rectal Exam: Deferred - Extremities Exam Extremities exam: Positive for: normal inspection, pedal pulses present. Negative for: calf tenderness, pedal edema, tenderness - Back Exam Back exam: NORMAL INSPECTION - Neurological Exam Neurological exam: Alert, CN II-XII Intact, Normal Gait, Oriented x3 - Skin Skin Exam: Dry, Warm Results - Vital Signs Recent Vital Signs: Last Vital Signs Temp 97.9 F 12/19/16 08:32 Pulse 102 H 12/19/16 08:32 Resp 22 12/19/16 08:32 BP 158/76 H 12/19/16 08:32 Pulse Ox 100 12/19/16 11:11 - Labs Result Diagrams: 12/19/16 09:31 12/19/16 09:31 Labs: Laboratory Results - last 24 hr 12/19/16 12/19/16 09:31 10:35 WBC 17.5 H D RBC 4.91 Hgb 9.5 L Hct 33.5 L MCV 68.2 L MCH 19.3 L MCHC 28.2 L RDW 23.6 H Plt Count 405 H MPV 7.6 Neut % (Auto) 85.2 H Lymph % (Auto) 6.6 L Labette % (Auto) 7.7 Eos % (Auto) 0.0 Baso % (Auto) 0.5 Neut # 14.9 H Lymph # 1.1 Labette # 1.3 H Eos # 0.0 Baso # 0.1 Neutrophils % (Manual) 85 H Band Neutrophils % 1 Lymphocytes % (Manual) 7 L Reactive Lymphs % 2 H Monocytes % (Manual) 5 Platelet Estimate Slightly increased H Plt Clumps, EDTA Large Platelets Present Giant Platelets Present Hypochromasia (manual) Moderate Poikilocytosis (manual Slight Anisocytosis (manual) Moderate Microcytosis (manual) Moderate Target Cells Slight Ovalocytes Slight PT 13.5 H INR 1.2 APTT 31 Sodium 136 Potassium 4.1 Chloride 101 Carbon Dioxide 25 Anion Gap 14 BUN 7 L Creatinine 0.7 L Est GFR ( Amer) > 60 Est GFR (Non-Af Amer) > 60 Random Glucose 117 H Calcium 9.5 Total Bilirubin 0.2 AST 180 H D ALT 27 Alkaline Phosphatase 140 H D Troponin I 14.9000 H* Total Protein 8.6 H Albumin 4.3 Globulin 4.3 H Albumin/Globulin Ratio 1.0 Urine Color Yellow Urine Clarity Clear Urine pH 7.0 Ur Specific [place] 1.014 Urine Protein 1+ H Urine Glucose (UA) Normal Urine Ketones Negative Urine Blood Negative Urine Nitrate Negative Urine Bilirubin Negative Urine Urobilinogen Normal Ur Leukocyte Esterase Neg Urine WBC (Auto) 1 Urine RBC (Auto) 1 Ur Squamous Epith Cells < 1 Assessment & Plan - Assessment and Plan (Free Text) Assessment: 71 M with PMHx HTN presents to the ED with chest pain x1 day, EKG showed NSTEMI with troponin of 14.9. Plan: Chest pain * EKG: ST depression V2-V3, TWI V6 99HR, NSTEMI * 1st INGRID: Troponin of 14.9, F/U INGRID x2 * Cardiology- Dr. Andersen consulted - help appreciated - catherization today or tomorrow * ASA, Lovenox, and Plavix given in the ED. * Started Crestor 20mg PO HS * F/U lipid panel, HgA1C Hx HTN * Restarted home medications: Norvasc 10mg PO Daily, Enalapril 10mg PO Daily ( equivalent to home Benazepril) Hx Anemia * Patient had a recent admission for abnormal labs. Dr. Quinonez was consulted. Patient underwent EGD and colonoscopy. EGD showed esophageal candidiasis and peptic ulcer disease. The colonoscopy revealed a colon polyp which was removed and biopsied. Patient was to follow up with Dr. Quinonez 1 week after discharge. * Elevated CEA- 4.0 Hx Elevated PSA * PSA 6.31 * Patient needs to follow up with urology as an outpatient. Prophylactic Measures * GI PPX: Protonix 40mg PO daily * DVT PPX: SCDs * Currently NPO, Heart Healthy Diet after catherization * Aly Cha Dr., DO, PGY-1
[2016-12-19] MEDS ORDERED: Enoxaparin 60 mg Syringe ONE (11:29)
[2016-12-19] MEDS ORDERED: Sodium Chloride 0.9% 1,000 ML IV SCH ×2 (13:45→15:45)
[2016-12-19] MEDS ORDERED: Midazolam 2 MG/2 ML VIAL ONE (14:35)
[2016-12-19] MEDS ORDERED: Lidocaine 2% Inj (20ml) ONE (14:54)
[2016-12-19] MEDS ORDERED: Sodium Chloride 0.45% 1,000 ML IV SCH (15:45)
[2016-12-19] MEDS ORDERED: Heparin25000 units/250ml 1/2NS 250 ML IV PRN ×2 (16:12→16:19)
--- NOTE | 2016-12-19 18:11 | CARD ---
APPROVED REPORT EXAM: Two-dimensional and M-mode echocardiogram with Doppler and color Doppler. Other Information Quality : GoodRhythm : NSR INDICATION MYOCARDIAL INFARCTION/NSTEMI RISK FACTORS Hypertension M-Mode DIMENSIONS RVDd0.98 (2.1-3.2cm)Left Atrium (MM)3.45 (2.5-4.0cm) IVSd0.78 (0.7-1.1cm)Aortic Root3.29 (2.2-3.7cm) LVDd5.66 (4.0-5.6cm)Aortic Cusp Exc.1.89 (1.5-2.0cm) PWd1.04 (0.7-1.1cm)FS (%) 28 % LVDs4.10 (2.0-3.8cm)LVEF (%)53 (>50%) Aortic Valve AoV Peak Ndotwphp502.8cm/Mansi Peak GR.8mmHgAI P 1/2 [id number] Mitral Valve MV E Jlsxvnsl90.7cm/sMV A Prfxnrfi503.1cm/sE/A ratio0.6 TDI E/Lateral E'0.0E/Medial E'0.0 Tricuspid Valve TR Peak Goapynog026wc/sTR Peak Gr.05ioLbQFSM91siQq LEFT VENTRICLE The left ventricle is normal size. There is borderline concentric left ventricular hypertrophy. Left ventricle systolic function is borderline. Transmitral Doppler flow pattern is Grade I-abnormal relaxation pattern. RIGHT VENTRICLE The right ventricle is normal size. There is normal right ventricular wall thickness. The right ventricular systolic function is normal. ATRIA The left atrium size is normal. The right atrium size is normal. AORTIC VALVE The aortic valve is mildly sclerotic. There is trace aortic regurgitation. MITRAL VALVE The mitral valve is mildly thickened. There is no mitral valve regurgitation noted. TRICUSPID VALVE There is moderate pulmonary hypertension. There is mild tricuspid regurgitation. GREAT VESSELS The aortic root is normal in size. The IVC collapses <50% with inspiration. PERICARDIAL EFFUSION There is no pericardial effusion. <Conclusion> The left ventricle is normal size. There is borderline concentric left ventricular hypertrophy. Left ventricle systolic function is borderline. Transmitral Doppler flow pattern is Grade I-abnormal relaxation pattern. There is moderate pulmonary hypertension.
--- NOTE | 2016-12-19 20:03 | CP.PCM.CON ---
History of Present Illness - History of Present Illness History of Present Illness: Patient s/p Cath L Main: Patent LAD: Proximal to mid 80-90% stenosis L Cx: Proximal 85% and OM1 100% lesions RCA: Proximal to mid 70% stenosis EF: Moderately reduced For PCI of LAD and L Cx tomorrow PCI of RCA as out patient if still symptomatic HPI: 71 M with PMHx of HTN presents to the ED complaining of chest pain that started yesterday. He was sitting around watching TV when he started to have right sided, burning chest pain that radiated down to his abdomen. This is the first time he had this pain, it was an 04/06. Patient took an ASA and started the pain remained for about 3-4 hours. This morning the patient woke up with the pain, so he came to the ED. Patient was admitted on 12/15/16 for low hemoglobin. He was admitted, transfused, and underwent and EGD and colonoscopy which showed he had peptic ulcer disease and a gastric polyp which was removed and biopsied. Patient also had an elevated CEA and PSA which need to be followed up as an outpatient. Denied fever, chills, headache, chest pain, abdominal pain, changes in bowel movements, no urinary symptoms or active bleeding. PMHx: HTN PSHx: Denied Meds: Protonix 40mg PO daily, Amlodipine Besylate/ Benazepril 1 cap PO daily, All: NKDA SHx: Admitted to smoking 1/2 PPD for 50 years, denied alcohol or illicit drug use FHx: Unremarkable PMD: Dr. Stephanie Parsons Meds Allergies/Adverse Reactions: Allergies Allergy/AdvReac Type Severity Reaction Status Date / Time No Known Allergies Allergy Verified 12/15/16 07:50 Physical Exam - Constitutional Appears: No Acute Distress - Head Exam Head Exam: ATRAUMATIC, NORMAL INSPECTION, NORMOCEPHALIC - Eye Exam Eye Exam: EOMI, Normal appearance, PERRL Pupil Exam: NORMAL ACCOMODATION, PERRL - ENT Exam ENT Exam: Mucous Membranes Moist, Normal Exam - Neck Exam Neck exam: Positive for: Normal Inspection - Respiratory Exam Respiratory Exam: Clear to Auscultation Bilateral, NORMAL BREATHING PATTERN. absent: Decreased Breath Sounds, Respiratory Distress - Cardiovascular Exam Cardiovascular Exam: REGULAR RHYTHM, RRR, +S1, +S2 - GI/Abdominal Exam GI & Abdominal Exam: Normal Bowel Sounds, Soft. absent: Distended, Tenderness - Rectal Exam Rectal Exam: Deferred - Extremities Exam Extremities exam: Positive for: normal inspection, pedal pulses present. Negative for: calf tenderness, pedal edema, tenderness - Back Exam Back exam: NORMAL INSPECTION - Neurological Exam Neurological exam: Alert, CN II-XII Intact, Normal Gait, Oriented x3 - Skin Skin Exam: Dry, Warm Past Patient History - Infectious Disease Hx of Infectious Diseases: None - Past Medical History & Family History Past Medical History?: Yes - Past Social History Smoking Status: Heavy Smoker > 10 Cigarettes Daily - CARDIAC Hx Hypertension: Yes - PULMONARY Hx Respiratory Disorders: No - NEUROLOGICAL Hx Neurological Disorder: No - HEENT Hx HEENT Problems: No - RENAL Hx Chronic Kidney Disease: No - ENDOCRINE/METABOLIC Hx Endocrine Disorders: No - HEMATOLOGICAL/ONCOLOGICAL Hx Anemia: Yes - INTEGUMENTARY Hx Dermatological Problems: No - MUSCULOSKELETAL/RHEUMATOLOGICAL Hx Musculoskeletal Disorders: No Hx Falls: No - GASTROINTESTINAL Hx Gastrointestinal Disorders: No - GENITOURINARY/GYNECOLOGICAL Hx Genitourinary Disorders: No - PSYCHIATRIC Hx Substance Use: No - SURGICAL HISTORY Hx Surgeries: No - ANESTHESIA Hx Anesthesia: No Meds Allergies/Adverse Reactions: Allergies Allergy/AdvReac Type Severity Reaction Status Date / Time No Known Allergies Allergy Verified 12/15/16 07:50 - Medications Medications: Current Medications Aspirin (Aspirin Chewable) 81 mg PO DAILY [facility] [place] Carvedilol (Coreg) 3.125 mg PO BID [facility] Last Admin: 12/19/16 17:19 Dose: 3.125 mg Clopidogrel Bisulfate (Plavix) 75 mg PO DAILY [facility] Enalapril Maleate (Vasotec) 10 mg PO DAILY [facility] [place] Sodium Chloride (Sodium Chloride 0.45%) 1,000 mls @ 50 mls/hr IV .Q20H [facility] [place] Last Admin: 12/19/16 17:15 Dose: 50 mls/hr Heparin Sodium/Sodium Chloride (Heparin 92056 Units/250ml 1/2 Normal Saline) 250 mls @ 7.294 mls/hr IV .Q24H PRN; Protocol; 12 UNITS/KG/HR PRN Reason: PROTOCOL Last Admin: 12/19/16 17:16 Dose: 7.294 mls/hr Ondansetron HCl (Zofran Inj) 4 mg IVP Q6H PRN PRN Reason: Nausea/Vomiting Pantoprazole Sodium (Protonix Ec Tab) 40 mg PO DAILY [facility] Rosuvastatin Calcium (Crestor) 40 mg PO HS [facility] Results - Vital Signs Recent Vital Signs: Last Vital Signs Temp 96.3 F L 12/19/16 16:00 Pulse 93 H 12/19/16 18:00 Resp 19 12/19/16 18:00 BP 145/69 12/19/16 18:00 Pulse Ox 100 12/19/16 18:00 - Labs Result Diagrams: 12/19/16 09:31 12/19/16 09:31 Labs: Laboratory Results - last 24 hr 12/19/16 15:23 Hemoglobin A1c 5.0 Total Creatine Kinase 1078 H CK-MB (Mass) 77.2 H Troponin I, Quant 20.2000 H* Triglycerides 55 Cholesterol 144 LDL Cholesterol Direct 75 HDL Cholesterol 52 Assessment & Plan - Assessment and Plan (Free Text) Assessment: Chest pain * EKG: ST depression V2-V3, TWI V6 99HR, NSTEMI * 1st INGRID: Troponin of 14.9, F/U INGRID x2 * For PCI of LAD and L Cx in am * ASA, Lovenox, and Plavix given in the ED. * Started Crestor 20mg PO HS * F/U lipid panel, HgA1C Hx HTN * Restarted home medications: Norvasc 10mg PO Daily, Enalapril 10mg PO Daily ( equivalent to home Benazepril) Hx Anemia * Patient had a recent admission for abnormal labs. Dr. Quinonez was consulted. Patient underwent EGD and colonoscopy. EGD showed esophageal candidiasis and peptic ulcer disease. The colonoscopy revealed a colon polyp which was removed and biopsied. Patient was to follow up with Dr. Quinonez 1 week after discharge. * Elevated CEA- 4.0 Hx Elevated PSA * PSA 6.31 * Patient needs to follow up with urology as an outpatient. Prophylactic Measures * GI PPX: Protonix 40mg PO daily * DVT PPX: SCDs * Currently NPO, Heart Healthy Diet after catherization * Zofran PRN
--- NOTE | 2016-12-19 22:09 | CARDCATH ---
PROCEDURE DATE: 12/19/2016 PROCEDURES: 1. Left heart catheterization. 2. Coronary angiogram. CLINICAL INDICATIONS: 1. Non-ST elevation myocardial infarction. 2. Coronary artery disease. 3. Hypertension. 4. Hyperlipidemia. REFERRING PHYSICIAN: Dr. Stephanie Bond. PERFORMING PHYSICIAN: Dr. Karan Andersen. PROCEDURE: After informed consent, the patient was prepped and draped in the usual sterile fashion. Lidocaine 2% was given in the right groin for local anesthesia. Using micropuncture technique, 6-Fr ench sheath was introduced into the right common femoral artery. Using the usual diagnostic catheter , left heart catheterization and coronary angiogram was performed. The patient tolerated the procedu re well. FINDINGS: 1. Left main coronary artery is patent. 2. LAD has proximal to mid-80% to 95% stenotic lesions. Distal LAD is patent. Diagonal branches ar e small but have ostial 80% to 85% stenotic lesions. 3. Left circumflex has 85% proximal stenosis. Distal left circumflex is patent. Obtuse marginal 1 artery has 100% occlusion. 4. Right coronary artery has a proximal to mid-70% stenosis. Distal right coronary artery and the P DA branches are patent. 5. LV ejection fraction is approximately . Mild global hypokinesis. EDP is . No gradien t across the aortic valve. IMPRESSION: 1. Triple vessel disease. 2. Mildly decreased left ventricular systolic function. RECOMMENDATIONS: Recommend multivessel coronary revascularization. Karan Andersen MD cc: [id number] TT: 12/19/2016 22:08:41 dn
[2016-12-19 23:30] LABS: CHLORIDE 102 mmol/L (98-107)
[2016-12-19 23:31] LABS: POTASSIUM 4.4 mmol/L (3.6-5.2); SODIUM 131 mmol/L (132-148)
[2016-12-19 23:33] LABS: CARBON DIOXIDE 23 mmol/L (22-30); GFR AFRICAN-AMERICAN > 60
[2016-12-19 23:34] LABS: BLOOD UREA NITROGEN 10 mg/dL (9-20); CALCIUM 8.9 mg/dl (8.6-10.4); GLUCOSE,RANDOM 112 mg/dL (75-110); MAGNESIUM 2.4 mg/dL (1.6-2.3); PHOSPHOROUS 2.8 mg/dL (2.5-4.5)
[2016-12-20 06:52] LABS: BASO # 0.1 K/uL (0.0-0.2); BASO % 0.5 % (0.0-2.0); EOS # 0.1 K/uL (0.0-0.7); EOS % 0.3 % (0.0-4.0); HEMATOCRIT 30.7 % (35.0-51.0); LYMPH # 1.8 K/uL (1.0-4.3); LYMPH % 9.8 % (20.0-40.0); MEAN CELL VOLUME 68.6 fL (80.0-94.0); MEAN CORPUSCULAR HEMOGLOBIN 19.3 pg (27.0-31.0); MEAN CORPUSCULAR HGB CONC 28.1 g/dL (33.0-37.0); MEAN PLATELET VOLUME 8.8 fL (7.2-11.7); MONO # 2.4 K/uL (0.0-0.8); MONO % 13.3 % (0.0-10.0); PLATELET COUNT 356 K/uL (130-400); RED CELL DISTRIBUTION WIDTH 23.9 % (11.5-14.5); WHITE BLOOD COUNT 17.9 K/uL (4.8-10.8)
[2016-12-20 06:53] LABS: CHLORIDE 101 mmol/L (98-107); SODIUM 135 mmol/L (132-148)
[2016-12-20 06:56] LABS: ALB/GLOB RATIO 0.9 (1.0-2.1); ALKALINE PHOSPHATASE 106 U/L (38-126); AST/SGOT 163 U/L (17-59); BILIRUBIN,TOTAL 0.3 mg/dL (0.2-1.3); BLOOD UREA NITROGEN 11 mg/dL (9-20); CARBON DIOXIDE 24 mmol/L (22-30); GFR AFRICAN-AMERICAN > 60; GLUCOSE,RANDOM 88 mg/dL (75-110); PHOSPHOROUS 2.7 mg/dL (2.5-4.5); TOTAL PROTEIN 7.4 g/dL (6.3-8.3)
[2016-12-20 06:57] LABS: ALT/SGPT 27 U/L (21-72); CALCIUM 8.7 mg/dl (8.6-10.4); MAGNESIUM 2.2 mg/dL (1.6-2.3)
--- NOTE | 2016-12-20 08:16 | CP.CCUPN ---
<Bibi Lu - Last Filed: 12/20/16 10:54> CCU Subjective - Physician Review Subjective (Free Text): Patient was seen and examined at bedside. Patient reports no chest pain, abdominal pain, or any other acute complaints. Patient was held NPO for PCI of LAD and Left Circumflex today at [facility] scheduled at 12pm with Dr. Andersen. Patient will return to [facility] after the procedure. Right groin dressing was C/D/I, no hematoma noted. CCU Objective - Vital Signs / Intake & Output Vital Signs (Last 4 hours): Vital Signs Pulse Resp BP Pulse Ox 12/20/16 07:04 83 26 H 99 12/20/16 07:00 88 14 114/55 L 100 12/20/16 06:00 87 20 117/55 L 100 12/20/16 05:00 85 23 117/52 L 100 Intake and Output (Last 8hrs): Intake & Output 12/19/16 12/20/16 12/20/16 22:59 06:59 14:59 Intake Total 943.2 576.4 50 Output Total 750 450 Balance 193.2 126.4 50 Weight 128 lb 8.472 oz Intake: Intake, IV Amount 293.2 456.4 50 Left Forearm 250 400 50 Left Forearm #2 21.6 56.4 0 Left Wrist 21.6 Oral 650 120 Output: Urine 750 450 Urine, Voided 750 450 Other: # Voids Urine, Voided 1 1 - Physical Exam Head: Positive for: Atraumatic, Normocephalic Pupils: Positive for: PERRL Extroacular Muscles: Positive for: EOMI Conjunctiva: Positive for: Normal Mouth: Positive for: Moist Mucous Membranes Neck: Positive for: Normal Range of Motion Respiratory/Chest: Positive for: Clear to Auscultation, Good Air Exchange. Negative for: Respiratory Distress, Accessory Muscle Use Cardiovascular: Positive for: Regular Rate and Rhythm, Normal S1, S2 Abdomen: Positive for: Normal Bowel Sounds. Negative for: Tenderness, Distention Upper Extremity: Positive for: Normal Inspection. Negative for: Cyanosis, Edema Lower Extremity: Positive for: Normal Inspection, Edema, NORMAL PULSES. Negative for: CALF TENDERNESS Neurological: Positive for: GCS=15 Skin: Positive for: Warm, Dry, Normal Color Psychiatric: Positive for: Alert, Oriented x 3 - Medications Active Medications: Active Medications Generic Name Dose Route Start Last Admin Trade Name Freq PRN Reason Stop Dose Admin Aspirin 81 mg 12/20/16 10:00 Aspirin Chewable PO DAILY [facility] Carvedilol 3.125 mg 12/19/16 18:00 12/19/16 17:19 Coreg PO 3.125 mg BID CARLOS Administration Clopidogrel Bisulfate 75 mg 12/20/16 10:00 Plavix PO DAILY [facility] Enalapril Maleate 10 mg 12/20/16 10:00 Vasotec PO DAILY CARLOS Sodium Chloride 1,000 mls @ 50 mls/hr 12/19/16 15:45 12/19/16 17:15 Sodium Chloride 0.45% IV 50 mls/hr .Q20H CARLOS Administration Heparin Sodium/Sodium Chloride 250 mls @ 7.294 mls/hr 12/19/16 16:19 01:00 Heparin 93332 Units/250ml 1/2 Normal Saline IV 14 units/kg/hr .Q24H PRN 8.4 mls/hr PROTOCOL Titration Protocol 12 UNITS/KG/HR Ondansetron HCl 4 mg 12/19/16 13:38 Zofran Inj IVP Q6H PRN Nausea/Vomiting Pantoprazole Sodium 40 mg 12/20/16 10:00 Protonix Ec Tab PO DAILY [facility] Rosuvastatin Calcium 40 mg 12/19/16 22:00 12/19/16 21:50 Crestor PO 40 mg HS CARLOS Administration - Patient Studies Lab Studies: Lab Studies 12/20/16 12/20/16 12/20/16 Range/Units 06:30 06:30 06:30 WBC 17.9 H (4.8-10.8) K/uL RBC 4.48 (4.40-5.90) Mil/uL Hgb 8.6 L (12.0-18.0) g/dL Hct 30.7 L (35.0-51.0) % MCV 68.6 L (80.0-94.0) fL MCH 19.3 L (27.0-31.0) pg MCHC 28.1 L (33.0-37.0) g/dL RDW 23.9 H (11.5-14.5) % Plt Count 356 (130-400) K/uL MPV 8.8 (7.2-11.7) fL Neut % (Auto) 76.1 H (50.0-75.0) % Lymph % (Auto) 9.8 L (20.0-40.0) % [place] % (Auto) 13.3 H (0.0-10.0) % Eos % (Auto) 0.3 (0.0-4.0) % Baso % (Auto) 0.5 (0.0-2.0) % Neut # 13.6 H (1.8-7.0) K/uL Lymph # 1.8 (1.0-4.3) K/uL [place] # 2.4 H (0.0-0.8) K/uL Eos # 0.1 (0.0-0.7) K/uL Baso # 0.1 (0.0-0.2) K/uL APTT (21-34) SECONDS Sodium 135 (132-148) mmol/L Potassium 4.0 (3.6-5.2) mmol/L Chloride 101 (98-107) mmol/L Carbon Dioxide 24 (22-30) mmol/L Anion Gap 13 (10-20) BUN 11 (9-20) mg/dL Creatinine 0.9 (0.8-1.5) MG/DL Est GFR ( Amer) > 60 Est GFR (Non-Af Amer) > 60 Random Glucose 88 (75-110) mg/dL Hemoglobin A1c (4.2-6.5) % Calcium 8.7 (8.6-10.4) mg/dl Phosphorus 2.7 (2.5-4.5) mg/dL Magnesium 2.2 (1.6-2.3) mg/dL Total Bilirubin 0.3 (0.2-1.3) mg/dL AST 163 H (17-59) U/L ALT 27 (21-72) U/L Alkaline Phosphatase 106 (38-126) U/L Total Creatine Kinase 631 H (55-170) U/L CK-MB (Mass) 29.5 H (0.0-3.38) ng/mL Troponin I, Quant 27.5000 H* (0.00-0.120) ng/mL Total Protein 7.4 (6.3-8.3) g/dL Albumin 3.5 (3.5-5.0) g/dL Globulin 3.9 (2.2-3.9) gm/dL Albumin/Globulin Ratio 0.9 L (1.0-2.1) Triglycerides (0-149) mg/dL Cholesterol (0-199) mg/dL LDL Cholesterol Direct (0-129) mg/dL HDL Cholesterol (30-70) mg/dL 12/19/16 12/19/16 12/19/16 Range/Units 23:19 23:19 15:23 WBC (4.8-10.8) K/uL RBC (4.40-5.90) Mil/uL Hgb (12.0-18.0) g/dL Hct (35.0-51.0) % MCV (80.0-94.0) fL MCH (27.0-31.0) pg MCHC (33.0-37.0) g/dL RDW (11.5-14.5) % Plt Count (130-400) K/uL MPV (7.2-11.7) fL Neut % (Auto) (50.0-75.0) % Lymph % (Auto) (20.0-40.0) % [place] % (Auto) (0.0-10.0) % Eos % (Auto) (0.0-4.0) % Baso % (Auto) (0.0-2.0) % Neut # (1.8-7.0) K/uL Lymph # (1.0-4.3) K/uL [place] # (0.0-0.8) K/uL Eos # (0.0-0.7) K/uL Baso # (0.0-0.2) K/uL APTT 35 H (21-34) SECONDS Sodium 131 L (132-148) mmol/L Potassium 4.4 (3.6-5.2) mmol/L Chloride 102 (98-107) mmol/L Carbon Dioxide 23 (22-30) mmol/L Anion Gap 12 (10-20) BUN 10 (9-20) mg/dL Creatinine 0.8 (0.8-1.5) MG/DL Est GFR ( Amer) > 60 Est GFR (Non-Af Amer) > 60 Random Glucose 112 H (75-110) mg/dL Hemoglobin A1c 5.0 (4.2-6.5) % Calcium 8.9 (8.6-10.4) mg/dl Phosphorus 2.8 (2.5-4.5) mg/dL Magnesium 2.4 H (1.6-2.3) mg/dL Total Bilirubin (0.2-1.3) mg/dL AST (17-59) U/L ALT (21-72) U/L Alkaline Phosphatase (38-126) U/L Total Creatine Kinase 864 H (55-170) U/L CK-MB (Mass) 47.4 H (0.0-3.38) ng/mL Troponin I, Quant 25.7000 H* (0.00-0.120) ng/mL Total Protein (6.3-8.3) g/dL Albumin (3.5-5.0) g/dL Globulin (2.2-3.9) gm/dL Albumin/Globulin Ratio (1.0-2.1) Triglycerides (0-149) mg/dL Cholesterol (0-199) mg/dL LDL Cholesterol Direct (0-129) mg/dL HDL Cholesterol (30-70) mg/dL 12/19/16 Range/Units 15:23 WBC (4.8-10.8) K/uL RBC (4.40-5.90) Mil/uL Hgb (12.0-18.0) g/dL Hct (35.0-51.0) % MCV (80.0-94.0) fL MCH (27.0-31.0) pg MCHC (33.0-37.0) g/dL RDW (11.5-14.5) % Plt Count (130-400) K/uL MPV (7.2-11.7) fL Neut % (Auto) (50.0-75.0) % Lymph % (Auto) (20.0-40.0) % [place] % (Auto) (0.0-10.0) % Eos % (Auto) (0.0-4.0) % Baso % (Auto) (0.0-2.0) % Neut # (1.8-7.0) K/uL Lymph # (1.0-4.3) K/uL [place] # (0.0-0.8) K/uL Eos # (0.0-0.7) K/uL Baso # (0.0-0.2) K/uL APTT (21-34) SECONDS Sodium (132-148) mmol/L Potassium (3.6-5.2) mmol/L Chloride (98-107) mmol/L Carbon Dioxide (22-30) mmol/L Anion Gap (10-20) BUN (9-20) mg/dL Creatinine (0.8-1.5) MG/DL Est GFR ( Amer) Est GFR (Non-Af Amer) Random Glucose (75-110) mg/dL Hemoglobin A1c (4.2-6.5) % Calcium (8.6-10.4) mg/dl Phosphorus (2.5-4.5) mg/dL Magnesium (1.6-2.3) mg/dL Total Bilirubin (0.2-1.3) mg/dL AST (17-59) U/L ALT (21-72) U/L Alkaline Phosphatase (38-126) U/L Total Creatine Kinase 1078 H (55-170) U/L CK-MB (Mass) 77.2 H (0.0-3.38) ng/mL Troponin I, Quant 20.2000 H* (0.00-0.120) ng/mL Total Protein (6.3-8.3) g/dL Albumin (3.5-5.0) g/dL Globulin (2.2-3.9) gm/dL Albumin/Globulin Ratio (1.0-2.1) Triglycerides 55 (0-149) mg/dL Cholesterol 144 (0-199) mg/dL LDL Cholesterol Direct 75 (0-129) mg/dL HDL Cholesterol 52 (30-70) mg/dL Laboratory Results - last 24 hr 12/19/16 12/19/16 12/19/16 15:23 15:23 23:19 WBC RBC Hgb Hct MCV MCH MCHC RDW Plt Count MPV Neut % (Auto) Lymph % (Auto) [place] % (Auto) Eos % (Auto) Baso % (Auto) Neut # Lymph # [place] # Eos # Baso # APTT Sodium 131 L Potassium 4.4 Chloride 102 Carbon Dioxide 23 Anion Gap 12 BUN 10 Creatinine 0.8 Est GFR ( Amer) > 60 Est GFR (Non-Af Amer) > 60 Random Glucose 112 H Hemoglobin A1c 5.0 Calcium 8.9 Phosphorus 2.8 Magnesium 2.4 H Total Bilirubin AST ALT Alkaline Phosphatase Total Creatine Kinase 1078 H 864 H CK-MB (Mass) 77.2 H 47.4 H Troponin I, Quant 20.2000 H* 25.7000 H* Total Protein Albumin Globulin Albumin/Globulin Ratio Triglycerides 55 Cholesterol 144 LDL Cholesterol Direct 75 HDL Cholesterol 52 12/19/16 12/20/16 12/20/16 23:19 06:30 06:30 WBC 17.9 H RBC 4.48 Hgb 8.6 L Hct 30.7 L MCV 68.6 L MCH 19.3 L MCHC 28.1 L RDW 23.9 H Plt Count 356 MPV 8.8 Neut % (Auto) 76.1 H Lymph % (Auto) 9.8 L [place] % (Auto) 13.3 H Eos % (Auto) 0.3 Baso % (Auto) 0.5 Neut # 13.6 H Lymph # 1.8 [place] # 2.4 H Eos # 0.1 Baso # 0.1 APTT 35 H Sodium 135 Potassium 4.0 Chloride 101 Carbon Dioxide 24 Anion Gap 13 BUN 11 Creatinine 0.9 Est GFR ( Amer) > 60 Est GFR (Non-Af Amer) > 60 Random Glucose 88 Hemoglobin A1c Calcium 8.7 Phosphorus 2.7 Magnesium 2.2 Total Bilirubin 0.3 AST 163 H ALT 27 Alkaline Phosphatase 106 Total Creatine Kinase CK-MB (Mass) Troponin I, Quant Total Protein 7.4 Albumin 3.5 Globulin 3.9 Albumin/Globulin Ratio 0.9 L Triglycerides Cholesterol LDL Cholesterol Direct HDL Cholesterol 12/20/16 06:30 WBC RBC Hgb Hct MCV MCH MCHC RDW Plt Count MPV Neut % (Auto) Lymph % (Auto) [place] % (Auto) Eos % (Auto) Baso % (Auto) Neut # Lymph # [place] # Eos # Baso # APTT Sodium Potassium Chloride Carbon Dioxide Anion Gap BUN Creatinine Est GFR ( Amer) Est GFR (Non-Af Amer) Random Glucose Hemoglobin A1c Calcium Phosphorus Magnesium Total Bilirubin AST ALT Alkaline Phosphatase Total Creatine Kinase 631 H CK-MB (Mass) 29.5 H Troponin I, Quant 27.5000 H* Total Protein Albumin Globulin Albumin/Globulin Ratio Triglycerides Cholesterol LDL Cholesterol Direct HDL Cholesterol EKG/Cardiology Studies: Cardiology / EKG Studies 12/20/16 09:00 EKG [ELECTROCARDIOGRAM] DAILY Comment: Mode Of Transportation: Reason For Exam: NSTEMI 12/21/16 09:00 EKG [ELECTROCARDIOGRAM] DAILY Comment: Mode Of Transportation: Reason For Exam: NSTEMI 12/22/16 09:00 EKG [ELECTROCARDIOGRAM] DAILY Comment: Mode Of Transportation: Reason For Exam: NSTEMI 12/23/16 09:00 EKG [ELECTROCARDIOGRAM] DAILY Comment: Mode Of Transportation: Reason For Exam: NSTEMI 12/24/16 09:00 EKG [ELECTROCARDIOGRAM] DAILY Comment: Mode Of Transportation: Reason For Exam: NSTEMI Critical Care Progress Note - Nutrition Nutrition: Nutrition Category Date Time Status NPO Diet [DIET] Diets 12/20/16 Breakfast Active Assessment/Plan - Assessment and Plan (Free Text) Assessment: 71 M with PMHx HTN presents to the ED with chest pain x1 day, EKG showed NSTEMI with troponin of 14.9. Plan: Chest pain * EKG: ST depression V2-V3, TWI V6 99HR, NSTEMI * 1st INGRID: Troponin of 14.9, 20.2, 25.7, 27.5 * Cardiology- Dr. Andersen consulted - help appreciated - patient underwent Cardiac Cath: triple vessel disease, LAD, circumflex and RCA. Patient will be transferred to [facility] for PCI of the LAD and circumflex. He will then have a stent placed in the RCA as outpatient. * Started on ASA and Plavix * Started Crestor 40mg PO HS * Lipid panel WNL, HgA1C: 5.0 * 1/2 NS @ 50cc/hr Hx HTN * Restarted home medication: Enalapril 10mg PO Daily (equivalent to home Benazepril) * Coreg 3.125mg PO BID Hx Anemia * Patient had a recent admission for abnormal labs. Dr. Quinonez was consulted. Patient underwent EGD and colonoscopy. EGD showed esophageal candidiasis and peptic ulcer disease. The colonoscopy revealed a colon polyp which was removed and biopsied. Patient was to follow up with Dr. Quinonez 1 week after discharge. * Elevated CEA- 4.0 Hx Elevated PSA * PSA 6.31 * Patient needs to follow up with urology as an outpatient. Prophylactic Measures * GI PPX: Protonix 40mg PO daily * DVT PPX: SCDs * Currently NPO, Heart Healthy Diet after PCI * Zofran PRN DW Aly Shabazz DO, PGY-1 <Frank Ma S - Last Filed: 12/20/16 18:44> CCU Objective - Vital Signs / Intake & Output Vital Signs (Last 4 hours): Vital Signs Temp Pulse Resp BP Pulse Ox 12/20/16 17:51 90 12 100/56 L 97 12/20/16 17:01 97 H 9 L 103/49 L 96 12/20/16 17:00 92 H 13 97 12/20/16 16:41 88 12 132/60 98 12/20/16 16:30 96.9 F L 89 13 132/60 97 Intake and Output (Last 8hrs): Intake & Output 12/20/16 12/20/16 12/20/16 06:59 14:59 22:59 Intake Total 576.4 325 540 Output Total 450 200 0 Balance 126.4 125 540 Weight 128 lb 8.472 oz Intake: Intake, IV Amount 456.4 245 140 Left Forearm 400 200 140 Left Forearm #2 56.4 0 Right Antecubital 45 Oral 120 80 400 Output: Urine 450 200 0 Urine, Voided 450 200 0 Other: # Voids Urine, Voided 1 1 - Medications Active Medications: Active Medications Generic Name Dose Route Start Last Admin Trade Name Freq PRN Reason Stop Dose Admin Acetaminophen 650 mg 12/20/16 14:10 Tylenol 325mg Tab PO Q6 PRN Pain, Mild (1-3) Aspirin 81 mg 12/20/16 10:00 12/20/16 09:01 Aspirin Chewable PO 81 mg DAILY CARLOS Administration Carvedilol 3.125 mg 12/19/16 18:00 12/20/16 09:01 Coreg PO 3.125 mg BID CARLOS Administration Enalapril Maleate 10 mg 12/20/16 10:00 12/20/16 09:01 Vasotec PO 10 mg DAILY CARLOS Administration Enoxaparin Sodium 40 mg 12/21/16 10:00 Lovenox SC DAILY CARLOS Sodium Chloride 1,000 mls @ 70 mls/hr 12/20/16 14:00 12/20/16 16:40 Sodium Chloride 0.9% IV 12/21/16 23:59 70 mls/hr .[id number] CARLOS Administration Ondansetron HCl 4 mg 12/19/16 13:38 Zofran Inj IVP Q6H PRN Nausea/Vomiting Pantoprazole Sodium 40 mg 12/20/16 10:00 12/20/16 09:01 Protonix Ec Tab PO 40 mg DAILY CARLOS Administration Rosuvastatin Calcium 40 mg 12/19/16 22:00 12/19/16 21:50 Crestor PO 40 mg HS CARLOS Administration Ticagrelor 90 mg 12/20/16 18:00 12/20/16 17:51 Brilinta PO 90 mg BID CARLOS Administration - Patient Studies Lab Studies: Microbiology Studies 12/19/16 14:50 MRSA Culture (Admit) - Final Naris MRSA NOT DETECTED Lab Studies 12/20/16 12/20/16 12/20/16 Range/Units 06:30 06:30 06:30 WBC (4.8-10.8) K/uL RBC (4.40-5.90) Mil/uL Hgb (12.0-18.0) g/dL Hct (35.0-51.0) % MCV (80.0-94.0) fL MCH (27.0-31.0) pg MCHC (33.0-37.0) g/dL RDW (11.5-14.5) % Plt Count (130-400) K/uL MPV (7.2-11.7) fL Neut % (Auto) (50.0-75.0) % Lymph % (Auto) (20.0-40.0) % [place] % (Auto) (0.0-10.0) % Eos % (Auto) (0.0-4.0) % Baso % (Auto) (0.0-2.0) % Neut # (1.8-7.0) K/uL Lymph # (1.0-4.3) K/uL [place] # (0.0-0.8) K/uL Eos # (0.0-0.7) K/uL Baso # (0.0-0.2) K/uL Neutrophils % (Manual) (50-75) % Lymphocytes % (Manual) (20-40) % Monocytes % (Manual) (0-10) % Platelet Estimate (NORMAL) Hypochromasia (manual) Poikilocytosis (manual Anisocytosis (manual) Microcytosis (manual) Macrocytosis (manual) Target Cells Tear Drop Cells Ovalocytes Janine Cells PT 15.5 H (9.7-12.2) SECONDS INR 1.3 APTT 45 H D (21-34) SECONDS Sodium 135 (132-148) mmol/L Potassium 4.0 (3.6-5.2) mmol/L Chloride 101 (98-107) mmol/L Carbon Dioxide 24 (22-30) mmol/L Anion Gap 13 (10-20) BUN 11 (9-20) mg/dL Creatinine 0.9 (0.8-1.5) MG/DL Est GFR ( Amer) > 60 Est GFR (Non-Af Amer) > 60 Random Glucose 88 (75-110) mg/dL Calcium 8.7 (8.6-10.4) mg/dl Phosphorus 2.7 (2.5-4.5) mg/dL Magnesium 2.2 (1.6-2.3) mg/dL Total Bilirubin 0.3 (0.2-1.3) mg/dL AST 163 H (17-59) U/L ALT 27 (21-72) U/L Alkaline Phosphatase 106 (38-126) U/L Total Creatine Kinase 631 H (55-170) U/L CK-MB (Mass) 29.5 H (0.0-3.38) ng/mL Troponin I, Quant 27.5000 H* (0.00-0.120) ng/mL Total Protein 7.4 (6.3-8.3) g/dL Albumin 3.5 (3.5-5.0) g/dL Globulin 3.9 (2.2-3.9) gm/dL Albumin/Globulin Ratio 0.9 L (1.0-2.1) 12/20/16 12/19/16 12/19/16 Range/Units 06:30 23:19 23:19 WBC 17.9 H (4.8-10.8) K/uL RBC 4.48 (4.40-5.90) Mil/uL Hgb 8.6 L (12.0-18.0) g/dL Hct 30.7 L (35.0-51.0) % MCV 68.6 L (80.0-94.0) fL MCH 19.3 L (27.0-31.0) pg MCHC 28.1 L (33.0-37.0) g/dL RDW 23.9 H (11.5-14.5) % Plt Count 356 (130-400) K/uL MPV 8.8 (7.2-11.7) fL Neut % (Auto) 76.1 H (50.0-75.0) % Lymph % (Auto) 9.8 L (20.0-40.0) % [place] % (Auto) 13.3 H (0.0-10.0) % Eos % (Auto) 0.3 (0.0-4.0) % Baso % (Auto) 0.5 (0.0-2.0) % Neut # 13.6 H (1.8-7.0) K/uL Lymph # 1.8 (1.0-4.3) K/uL [place] # 2.4 H (0.0-0.8) K/uL Eos # 0.1 (0.0-0.7) K/uL Baso # 0.1 (0.0-0.2) K/uL Neutrophils % (Manual) 75 (50-75) % Lymphocytes % (Manual) 10 L (20-40) % Monocytes % (Manual) 15 H (0-10) % Platelet Estimate Normal (NORMAL) Hypochromasia (manual) Moderate Poikilocytosis (manual Slight Anisocytosis (manual) Slight Microcytosis (manual) Slight Macrocytosis (manual) Slight Target Cells Slight Tear Drop Cells Slight Ovalocytes Slight Janine Cells Slight PT (9.7-12.2) SECONDS INR APTT 35 H (21-34) SECONDS Sodium 131 L (132-148) mmol/L Potassium 4.4 (3.6-5.2) mmol/L Chloride 102 (98-107) mmol/L Carbon Dioxide 23 (22-30) mmol/L Anion Gap 12 (10-20) BUN 10 (9-20) mg/dL Creatinine 0.8 (0.8-1.5) MG/DL Est GFR ( Amer) > 60 Est GFR (Non-Af Amer) > 60 Random Glucose 112 H (75-110) mg/dL Calcium 8.9 (8.6-10.4) mg/dl Phosphorus 2.8 (2.5-4.5) mg/dL Magnesium 2.4 H (1.6-2.3) mg/dL Total Bilirubin (0.2-1.3) mg/dL AST (17-59) U/L ALT (21-72) U/L Alkaline Phosphatase (38-126) U/L Total Creatine Kinase 864 H (55-170) U/L CK-MB (Mass) 47.4 H (0.0-3.38) ng/mL Troponin I, Quant 25.7000 H* (0.00-0.120) ng/mL Total Protein (6.3-8.3) g/dL Albumin (3.5-5.0) g/dL Globulin (2.2-3.9) gm/dL Albumin/Globulin Ratio (1.0-2.1) Laboratory Results - last 24 hr 12/19/16 12/19/16 12/20/16 23:19 23:19 06:30 WBC 17.9 H RBC 4.48 Hgb 8.6 L Hct 30.7 L MCV 68.6 L MCH 19.3 L MCHC 28.1 L RDW 23.9 H Plt Count 356 MPV 8.8 Neut % (Auto) 76.1 H Lymph % (Auto) 9.8 L [place] % (Auto) 13.3 H Eos % (Auto) 0.3 Baso % (Auto) 0.5 Neut # 13.6 H Lymph # 1.8 [place] # 2.4 H Eos # 0.1 Baso # 0.1 Neutrophils % (Manual) 75 Lymphocytes % (Manual) 10 L Monocytes % (Manual) 15 H Platelet Estimate Normal Hypochromasia (manual) Moderate Poikilocytosis (manual Slight Anisocytosis (manual) Slight Microcytosis (manual) Slight Macrocytosis (manual) Slight Target Cells Slight Tear Drop Cells Slight Ovalocytes Slight [place] Cells Slight PT INR APTT 35 H Sodium 131 L Potassium 4.4 Chloride 102 Carbon Dioxide 23 Anion Gap 12 BUN 10 Creatinine 0.8 Est GFR ( Amer) > 60 Est GFR (Non-Af Amer) > 60 Random Glucose 112 H Calcium 8.9 Phosphorus 2.8 Magnesium 2.4 H Total Bilirubin AST ALT Alkaline Phosphatase Total Creatine Kinase 864 H CK-MB (Mass) 47.4 H Troponin I, Quant 25.7000 H* Total Protein Albumin Globulin Albumin/Globulin Ratio 12/20/16 12/20/16 12/20/16 06:30 06:30 06:30 WBC RBC Hgb Hct MCV MCH MCHC RDW Plt Count MPV Neut % (Auto) Lymph % (Auto) [place] % (Auto) Eos % (Auto) Baso % (Auto) Neut # Lymph # [place] # Eos # Baso # Neutrophils % (Manual) Lymphocytes % (Manual) Monocytes % (Manual) Platelet Estimate Hypochromasia (manual) Poikilocytosis (manual Anisocytosis (manual) Microcytosis (manual) Macrocytosis (manual) Target Cells Tear Drop Cells Ovalocytes [place] Cells PT 15.5 H INR 1.3 APTT 45 H D Sodium 135 Potassium 4.0 Chloride 101 Carbon Dioxide 24 Anion Gap 13 BUN 11 Creatinine 0.9 Est GFR ( Amer) > 60 Est GFR (Non-Af Amer) > 60 Random Glucose 88 Calcium 8.7 Phosphorus 2.7 Magnesium 2.2 Total Bilirubin 0.3 AST 163 H ALT 27 Alkaline Phosphatase 106 Total Creatine Kinase 631 H CK-MB (Mass) 29.5 H Troponin I, Quant 27.5000 H* Total Protein 7.4 Albumin 3.5 Globulin 3.9 Albumin/Globulin Ratio 0.9 L EKG/Cardiology Studies: Cardiology / EKG Studies 12/20/16 09:00 EKG [ELECTROCARDIOGRAM] DAILY Comment: Mode Of Transportation: Reason For Exam: NSTEMI 12/21/16 09:00 EKG [ELECTROCARDIOGRAM] DAILY Comment: Mode Of Transportation: Reason For Exam: NSTEMI 12/22/16 09:00 EKG [ELECTROCARDIOGRAM] DAILY Comment: Mode Of Transportation: Reason For Exam: NSTEMI 12/23/16 09:00 EKG [ELECTROCARDIOGRAM] DAILY Comment: Mode Of Transportation: Reason For Exam: NSTEMI 12/24/16 09:00 EKG [ELECTROCARDIOGRAM] DAILY Comment: Mode Of Transportation: Reason For Exam: NSTEMI Critical Care Progress Note - Nutrition Nutrition: Nutrition Category Date Time Status Heart Healthy Diet [DIET] Diets 12/20/16 Dinner Active Attending/Attestation - Attestation I have personally seen and examined this patient.: Yes I have fully participated in the care of the patient.: Yes I have reviewed all pertinent clinical information: Yes Notes (Text): 12/20/16 12:43 patient underwent Cardiac Cath: triple vessel disease, LAD, circumflex and RCA. Patient will be transferred to [facility] for PCI of the LAD and circumflex. He will then have a stent placed in the RCA as outpatient
[2016-12-20 08:49] LABS: NEUTROPHIL 75 % (50-75); TOTAL CELLS COUNTED 100
--- NOTE | 2016-12-20 08:56 | PN ---
DATE: 12/20/2016 LOCATION: ICU 11. This 71-year-old male seen and examined at rounds for GI consultation initially on 12/19/2016 as requ ested by the ER staff, reexamined again today in the intensive care unit. He appeared to be awake, a lert, oriented, afebrile with no reported active bleeding, tolerating oral intake well. The patient for cardiac cath today at [facility] as reported by the admitting medical staff. The entire chart is reviewed, including but not limited to most recent lab and radiology study result s, current and previous medication list, current and the previous medical events, list. Today's labs showed white blood cells of 17.9 with low hemoglobin 8.6 and low hematocrit 30.7 with lo w indices highly suggestive of hypochromic microcytic anemia with AST of 163 with increased alkaline phosphatase, but normal ALT with excessive increase of troponin level. PHYSICAL EXAMINATION: GENERAL: A 71-year-old male. VITAL SIGNS: Low-grade temperature of 99.7, heart rate 88, respiratory rate 20-22, blood pressure of 120/58. HEENT: Showed pale, dry mucoid membrane. Nonicteric sclerae. LUNGS: Few scattered crepitations, decreased air entry at bases. HEART: Positive S1 and S2. ABDOMEN: Soft with slight generalized tenderness. No mass or organomegaly. No rebound tenderness o r guarding. EXTREMITIES: Without significant clubbing, cyanosis or edema. NEUROLOGIC: No reported new neurological deficits, sensory or motor. IMPRESSION: 1. Hypochromic microcytic anemia with recent history of gastrointestinal blood loss. 2. Known history of hypertension. 3. Abnormal liver function test, mainly increased AST, possible alcohol-induced. 4. Coronary artery disease by recent history. 5. A reported history of esophageal candidiasis with gastritis as well as recent history of colon po lyp, pathology report is still pending. 6. Reported elevated CEA level before. SUGGESTION: 1. Agree with your plan. 2. Blood transfusion to keep hemoglobin around 10 gram percent. 3. The patient has no evidence of active bleeding in the meantime due to subsequent drop of hemoglob in and hematocrit. However, the aspirin and the Plavix to be started for the a.m. of the cardiac cat h in the meantime and Diflucan p.o. to be continued. 4. Proton pump inhibitors. 5. Guaiac all the stool daily x 3. Thank you for letting me participate in your patient's case management. Low Quinonez MD cc: 14 TT: 12/20/2016 08:55:38 Confirmation # [id number] Dictation # [id number] mn
[2016-12-20] MEDS: Pantoprazole 40 mg EC Tab PO SCH (09:01)
[2016-12-20 09:15] LABS: INR 1.3
--- NOTE | 2016-12-20 14:05 | CP.PCM.PN ---
Subjective - Date & Time of Evaluation Date of Evaluation: 12/20/16 Time of Evaluation: 14:02 - Subjective Subjective: Patient s/p successful intervention of LAD. L Cx and OM arteries with 3 Drug Eluting Stents RCA Intervention after 6 weeks Recommendations: Stop Heparin drip OOB to ambulate after 6pm tonight D/C Plavix and Start Brilinta IV Hydration Check labs in am DVT prophylaxis with Lovenox 40mg SC daily from tomorrow Objective - Vital Signs/Intake and Output Vital Signs (last 24 hours): Temp Pulse Resp BP Pulse Ox 98.7 F 85 23 122/59 L 100 12/20/16 08:00 12/20/16 09:00 12/20/16 09:00 12/20/16 09:01 12/20/16 09:00 Intake and Output: 12/20/16 12/20/16 06:59 18:59 Intake Total 1405.2 325 Output Total 700 200 Balance 705.2 125 - Medications Medications: Current Medications Acetaminophen (Tylenol 325mg Tab) 650 mg PO Q6 PRN PRN Reason: Pain, Mild (1-3) Aspirin (Aspirin Chewable) 81 mg PO DAILY [facility] Last Admin: 12/20/16 09:01 Dose: 81 mg Carvedilol (Coreg) 3.125 mg PO BID [facility] Last Admin: 12/20/16 09:01 Dose: 3.125 mg Enalapril Maleate (Vasotec) 10 mg PO DAILY [facility] Last Admin: 12/20/16 09:01 Dose: 10 mg Sodium Chloride (Sodium Chloride 0.9%) 1,000 mls @ 70 mls/hr IV .[id number] [facility] Stop: 12/21/16 23:59 Ondansetron HCl (Zofran Inj) 4 mg IVP Q6H PRN PRN Reason: Nausea/Vomiting Pantoprazole Sodium (Protonix Ec Tab) 40 mg PO DAILY [facility] Last Admin: 12/20/16 09:01 Dose: 40 mg Rosuvastatin Calcium (Crestor) 40 mg PO HS [facility] Last Admin: 12/19/16 21:50 Dose: 40 mg - Labs Labs: 12/20/16 06:30 12/20/16 06:30 PT 15.5 SECONDS (9.7-12.2) H 12/20/16 06:30 INR 1.3 12/20/16 06:30 APTT 45 SECONDS (21-34) H D 12/20/16 06:30
[2016-12-20] MEDS: Sodium Chloride 0.9% 1,000 ML IV SCH (16:40)
[2016-12-21] MEDS: Sodium Chloride 0.9% 1,000 ML IV SCH ×2 (04:18→07:04)
[2016-12-21 06:27] LABS: BASO # 0.1 K/uL (0.0-0.2); BASO % 0.5 % (0.0-2.0); EOS % 0.3 % (0.0-4.0); LYMPH % 13.7 % (20.0-40.0); MEAN CELL VOLUME 69.2 fL (80.0-94.0); MEAN CORPUSCULAR HEMOGLOBIN 19.2 pg (27.0-31.0); MEAN CORPUSCULAR HGB CONC 27.8 g/dL (33.0-37.0); MEAN PLATELET VOLUME 7.8 fL (7.2-11.7); MONO # 1.9 K/uL (0.0-0.8); WHITE BLOOD COUNT 14.6 K/uL (4.8-10.8)
[2016-12-21 06:44] LABS: CHLORIDE 105 mmol/L (98-107); POTASSIUM 3.8 mmol/L (3.6-5.2); SODIUM 136 mmol/L (132-148)
[2016-12-21 06:46] LABS: BILIRUBIN,TOTAL 0.1 mg/dL (0.2-1.3); GFR AFRICAN-AMERICAN > 60
[2016-12-21 06:47] LABS: ALB/GLOB RATIO 0.9 (1.0-2.1); ALKALINE PHOSPHATASE 85 U/L (38-126); ALT/SGPT 22 U/L (21-72); AST/SGOT 113 U/L (17-59); BLOOD UREA NITROGEN 16 mg/dL (9-20); CARBON DIOXIDE 22 mmol/L (22-30); GLUCOSE,RANDOM 82 mg/dL (75-110); TOTAL PROTEIN 6.5 g/dL (6.3-8.3)
[2016-12-21 06:48] LABS: CALCIUM 8.7 mg/dl (8.6-10.4); MAGNESIUM 2.1 mg/dL (1.6-2.3)
[2016-12-21] MEDS: Pantoprazole 40 mg EC Tab PO SCH (09:52)
[2016-12-21] MEDS: Enoxaparin 40 mg Syringe SC SCH (09:52)
[2016-12-21] MEDS: Potassium & Sodium Phosphate PO SCH ×2 (09:55→17:00)
--- NOTE | 2016-12-21 11:08 | CP.CCUPN ---
<Bibi Lu - Last Filed: 12/21/16 11:26> CCU Subjective - Physician Review Subjective (Free Text): Patient was seen and examined at bedside. Patient reports no chest pain, abdominal pain, or any other acute complaints. S/P successful intervention of LAD. L Cx and OM arteries with 3 Drug Eluting Stents POD #1. Left and right groin dressing were C/D/I, no hematomas were noted. Patient has chronic anemia, current hemoglobin 7.8. Patient will be transfused 2 units. Will follow CBC s/p [address] Quinonez was made aware , will follow up stool occult. CCU Objective - Vital Signs / Intake & Output Vital Signs (Last 4 hours): Vital Signs BP 12/21/16 09:58 119/59 L Intake and Output (Last 8hrs): Intake & Output 12/20/16 12/21/16 12/21/16 22:59 06:59 14:59 Intake Total 1060 1560 420 Output Total 400 750 0 Balance 660 810 420 Weight 134 lb 14.766 oz Intake: IV 1000 Intake, IV Amount 560 560 140 Left Forearm 280 Left Forearm #2 210 560 140 Right Antecubital 70 Oral 500 280 Output: Urine 400 750 0 Urine, Voided 400 750 0 - Physical Exam Head: Positive for: Atraumatic, Normocephalic Pupils: Positive for: PERRL Extroacular Muscles: Positive for: EOMI Conjunctiva: Positive for: Normal Mouth: Positive for: Moist Mucous Membranes Neck: Positive for: Normal Range of Motion Respiratory/Chest: Positive for: Clear to Auscultation, Good Air Exchange. Negative for: Respiratory Distress, Accessory Muscle Use Cardiovascular: Positive for: Regular Rate and Rhythm, Normal S1, S2 Abdomen: Positive for: Normal Bowel Sounds. Negative for: Tenderness, Distention Upper Extremity: Positive for: Normal Inspection. Negative for: Cyanosis, Edema Lower Extremity: Positive for: Normal Inspection, Edema, NORMAL PULSES. Negative for: CALF TENDERNESS Neurological: Positive for: GCS=15 Skin: Positive for: Warm, Dry, Normal Color Psychiatric: Positive for: Alert, Oriented x 3 - Medications Active Medications: Active Medications Generic Name Dose Route Start Last Admin Trade Name Freq PRN Reason Stop Dose Admin Acetaminophen 650 mg 12/20/16 14:10 Tylenol 325mg Tab PO Q6 PRN Pain, Mild (1-3) Aspirin 81 mg 12/20/16 10:00 12/21/16 09:53 Aspirin Chewable PO 81 mg DAILY [facility] Administration Carvedilol 3.125 mg 12/21/16 10:00 12/21/16 09:55 Coreg PO 3.125 mg BID [facility] Administration Enalapril Maleate 10 mg 12/20/16 10:00 12/21/16 09:58 Vasotec PO 10 mg DAILY [facility] Administration Enoxaparin Sodium 40 mg 12/21/16 10:00 12/21/16 09:52 Lovenox SC 40 mg DAILY [facility] Administration Ondansetron HCl 4 mg 12/19/16 13:38 Zofran Inj IVP Q6H PRN Nausea/Vomiting Pantoprazole Sodium 40 mg 12/20/16 10:00 12/21/16 09:52 Protonix Ec Tab PO 40 mg DAILY [facility] Administration Potassium Phos/Sodium Phos 1 pkt 12/21/16 08:30 12/21/16 09:55 Neutra-Phos PO 1 pkt BIDCC [facility] Administration Rosuvastatin Calcium 40 mg 12/19/16 22:00 12/20/16 22:43 Crestor PO 40 mg HS [facility] Administration Ticagrelor 90 mg 12/20/16 18:00 12/21/16 09:52 Brilinta PO 90 mg BID [facility] Administration - Patient Studies Lab Studies: Microbiology Studies 12/19/16 14:50 MRSA Culture (Admit) - Final Naris MRSA NOT DETECTED Lab Studies 12/21/16 12/21/16 12/21/16 Range/Units 06:18 06:18 06:18 WBC 14.6 H (4.8-10.8) K/uL RBC 4.04 L (4.40-5.90) Mil/uL Hgb 7.8 L (12.0-18.0) g/dL Hct 28.0 L (35.0-51.0) % MCV 69.2 L (80.0-94.0) fL MCH 19.2 L (27.0-31.0) pg MCHC 27.8 L (33.0-37.0) g/dL RDW 25.0 H (11.5-14.5) % Plt Count 304 (130-400) K/uL MPV 7.8 (7.2-11.7) fL Neut % (Auto) 72.5 (50.0-75.0) % Lymph % (Auto) 13.7 L (20.0-40.0) % Petroleum % (Auto) 13.0 H (0.0-10.0) % Eos % (Auto) 0.3 (0.0-4.0) % Baso % (Auto) 0.5 (0.0-2.0) % Neut # 10.6 H (1.8-7.0) K/uL Lymph # 2.0 (1.0-4.3) K/uL Petroleum # 1.9 H (0.0-0.8) K/uL Eos # 0.0 (0.0-0.7) K/uL Baso # 0.1 (0.0-0.2) K/uL Sodium 136 (132-148) mmol/L Potassium 3.8 (3.6-5.2) mmol/L Chloride 105 (98-107) mmol/L Carbon Dioxide 22 (22-30) mmol/L Anion Gap 12 (10-20) BUN 16 (9-20) mg/dL Creatinine 0.9 (0.8-1.5) MG/DL Est GFR ( Amer) > 60 Est GFR (Non-Af Amer) > 60 Random Glucose 82 (75-110) mg/dL Hemoglobin A1c 4.9 (4.2-6.5) % Calcium 8.7 (8.6-10.4) mg/dl Phosphorus 2.0 L (2.5-4.5) mg/dL Magnesium 2.1 (1.6-2.3) mg/dL Total Bilirubin 0.1 L (0.2-1.3) mg/dL AST 113 H D (17-59) U/L ALT 22 (21-72) U/L Alkaline Phosphatase 85 (38-126) U/L Total Protein 6.5 (6.3-8.3) g/dL Albumin 3.1 L (3.5-5.0) g/dL Globulin 3.4 (2.2-3.9) gm/dL Albumin/Globulin Ratio 0.9 L (1.0-2.1) Laboratory Results - last 24 hr 12/21/16 12/21/16 12/21/16 06:18 06:18 06:18 WBC 14.6 H RBC 4.04 L Hgb 7.8 L Hct 28.0 L MCV 69.2 L MCH 19.2 L MCHC 27.8 L RDW 25.0 H Plt Count 304 MPV 7.8 Neut % (Auto) 72.5 Lymph % (Auto) 13.7 L Petroleum % (Auto) 13.0 H Eos % (Auto) 0.3 Baso % (Auto) 0.5 Neut # 10.6 H Lymph # 2.0 Petroleum # 1.9 H Eos # 0.0 Baso # 0.1 Sodium 136 Potassium 3.8 Chloride 105 Carbon Dioxide 22 Anion Gap 12 BUN 16 Creatinine 0.9 Est GFR ( Amer) > 60 Est GFR (Non-Af Amer) > 60 Random Glucose 82 Hemoglobin A1c 4.9 Calcium 8.7 Phosphorus 2.0 L Magnesium 2.1 Total Bilirubin 0.1 L AST 113 H D ALT 22 Alkaline Phosphatase 85 Total Protein 6.5 Albumin 3.1 L Globulin 3.4 Albumin/Globulin Ratio 0.9 L EKG/Cardiology Studies: Cardiology / EKG Studies 12/21/16 09:00 EKG [ELECTROCARDIOGRAM] DAILY Comment: Mode Of Transportation: Reason For Exam: NSTEMI 12/22/16 09:00 EKG [ELECTROCARDIOGRAM] DAILY Comment: Mode Of Transportation: Reason For Exam: NSTEMI 12/23/16 09:00 EKG [ELECTROCARDIOGRAM] DAILY Comment: Mode Of Transportation: Reason For Exam: NSTEMI 12/24/16 09:00 EKG [ELECTROCARDIOGRAM] DAILY Comment: Mode Of Transportation: Reason For Exam: NSTEMI Critical Care Progress Note - Nutrition Nutrition: Nutrition Category Date Time Status Heart Healthy Diet [DIET] Diets 12/20/16 Dinner Active Assessment/Plan - Assessment and Plan (Free Text) Assessment: 71 M with PMHx HTN presents to the ED with chest pain x1 day, EKG showed NSTEMI with troponin of 14.9. Plan: Chest pain * EKG: ST depression V2-V3, TWI V6 99HR, NSTEMI * 1st INGRID: Troponin of 14.9, 20.2, 25.7, 27.5 * Cardiology- Dr. Andersen consulted - help appreciated - patient underwent Cardiac Cath: triple vessel disease, LAD, circumflex and RCA. s/p successful intervention of LAD. L Cx and OM arteries with 3 Drug Eluting Stents. RCA Intervention after 6 weeks * Started on ASA and Plavix * Started Crestor 40mg PO HS * Lipid panel WNL, HgA1C: 5.0 Hx HTN * Restarted home medication: Enalapril 10mg PO Daily (equivalent to home Benazepril) * Coreg 3.125mg PO BID Hx Anemia * Patient had a recent admission for abnormal labs. Dr. Quinonez was consulted. Patient underwent EGD and colonoscopy. EGD showed esophageal candidiasis and peptic ulcer disease. The colonoscopy revealed a colon polyp which was removed and biopsied. Patient was to follow up with Dr. Quinonez 1 week after discharge. * Elevated CEA- 4.0 * Hemoglobin 7.8 - will be transfused 2 units of PRBCs. Will follow CBC s/p 4 hours after transfusion. * Dr. Quinonez was made aware, will follow up stool occult. * F/U stool occult Hx Elevated PSA * PSA 6.31 * Patient needs to follow up with urology as an outpatient. Prophylactic Measures * GI PPX: Protonix 40mg PO daily * DVT PPX: SCDs * Currently NPO, Heart Healthy Diet after PCI * Anishafryaquelin PRN DW Aly Shabazz DO, PGY-1 <Frank Ma S - Last Filed: 12/21/16 18:03> CCU Objective - Vital Signs / Intake & Output Vital Signs (Last 4 hours): Vital Signs Temp Pulse Resp BP Pulse Ox 12/21/16 17:30 98.1 F 90 16 124/64 12/21/16 17:03 98.3 F 93 H 18 120/60 12/21/16 16:45 98.1 F 96 H 18 108/61 12/21/16 16:30 98.1 F 92 H 17 105/57 L 12/21/16 16:15 98.6 F 93 H 18 117/48 L 12/21/16 16:11 98.6 F 87 18 111/55 L 12/21/16 16:00 98.6 F 97 H 15 110/52 L 100 12/21/16 15:55 90 15 110/52 L 100 12/21/16 15:50 98.6 F 90 20 116/62 12/21/16 15:40 89 23 116/62 97 12/21/16 15:26 91 H 26 H 123/59 L 98 12/21/16 15:11 86 22 107/58 L 99 12/21/16 15:00 88 21 100 12/21/16 14:56 88 22 104/49 L 100 12/21/16 14:40 89 27 H 108/47 L 100 12/21/16 14:26 94 H 24 116/59 L 99 12/21/16 14:14 98.2 F 92 H 111 H 111/61 12/21/16 14:10 98 H 13 111/64 100 Intake and Output (Last 8hrs): Intake & Output 12/21/16 12/21/16 12/21/16 06:59 14:59 22:59 Intake Total 1560 1090 375 Output Total 750 700 280 Balance 810 390 95 Weight 134 lb 14.766 oz Intake: IV 1000 Intake, IV Amount 560 280 Left Forearm #2 560 280 Oral 810 0 Blood Product 0 325 Red Blood Cells Cpd As1 0 Lr Unit [id number] Red Blood Cells Cpd As1 0 325 Lr Unit [id number] Other 50 Red Blood Cells Cpd As1 50 Lr Unit [id number] Output: Urine 750 700 280 Urine, Voided 750 700 280 Stool 0 0 Other: # Voids Urine, Voided 2 - Medications Active Medications: Active Medications Generic Name Dose Route Start Last Admin Trade Name Freq PRN Reason Stop Dose Admin Acetaminophen 650 mg 12/20/16 14:10 Tylenol 325mg Tab PO Q6 PRN Pain, Mild (1-3) Aspirin 81 mg 12/20/16 10:00 12/21/16 09:53 Aspirin Chewable PO 81 mg DAILY [facility] Administration Carvedilol 3.125 mg 12/21/16 10:00 12/21/16 17:02 Coreg PO 3.125 mg BID [facility] Administration Docusate Sodium 100 mg 12/21/16 12:30 12/21/16 17:02 Colace PO 100 mg TID [facility] Administration Enalapril Maleate 10 mg 12/20/16 10:00 12/21/16 09:58 Vasotec PO 10 mg DAILY [facility] Administration Enoxaparin Sodium 40 mg 12/21/16 10:00 12/21/16 09:52 Lovenox SC 40 mg DAILY [facility] Administration Ondansetron HCl 4 mg 12/19/16 13:38 Zofran Inj IVP Q6H PRN Nausea/Vomiting Pantoprazole Sodium 40 mg 12/20/16 10:00 12/21/16 09:52 Protonix Ec Tab PO 40 mg DAILY [facility] Administration Potassium Phos/Sodium Phos 1 pkt 12/21/16 08:30 12/21/16 17:00 Neutra-Phos PO 1 pkt BIDCC [facility] Administration Rosuvastatin Calcium 40 mg 12/19/16 22:00 12/20/16 22:43 Crestor PO 40 mg HS [facility] Administration Ticagrelor 90 mg 12/20/16 18:00 12/21/16 17:02 Brilinta PO 90 mg BID [facility] Administration - Patient Studies Lab Studies: Lab Studies 12/21/16 12/21/16 12/21/16 Range/Units 10:45 06:18 06:18 WBC (4.8-10.8) K/uL RBC (4.40-5.90) Mil/uL Hgb (12.0-18.0) g/dL Hct (35.0-51.0) % MCV (80.0-94.0) fL MCH (27.0-31.0) pg MCHC (33.0-37.0) g/dL RDW (11.5-14.5) % Plt Count (130-400) K/uL MPV (7.2-11.7) fL Neut % (Auto) (50.0-75.0) % Lymph % (Auto) (20.0-40.0) % Petroleum % (Auto) (0.0-10.0) % Eos % (Auto) (0.0-4.0) % Baso % (Auto) (0.0-2.0) % Neut # (1.8-7.0) K/uL Lymph # (1.0-4.3) K/uL Petroleum # (0.0-0.8) K/uL Eos # (0.0-0.7) K/uL Baso # (0.0-0.2) K/uL Sodium 136 (132-148) mmol/L Potassium 3.8 (3.6-5.2) mmol/L Chloride 105 (98-107) mmol/L Carbon Dioxide 22 (22-30) mmol/L Anion Gap 12 (10-20) BUN 16 (9-20) mg/dL Creatinine 0.9 (0.8-1.5) MG/DL Est GFR ( Amer) > 60 Est GFR (Non-Af Amer) > 60 Random Glucose 82 (75-110) mg/dL Hemoglobin A1c 4.9 (4.2-6.5) % Calcium 8.7 (8.6-10.4) mg/dl Phosphorus 2.0 L (2.5-4.5) mg/dL Magnesium 2.1 (1.6-2.3) mg/dL Total Bilirubin 0.1 L (0.2-1.3) mg/dL AST 113 H D (17-59) U/L ALT 22 (21-72) U/L Alkaline Phosphatase 85 (38-126) U/L Total Protein 6.5 (6.3-8.3) g/dL Albumin 3.1 L (3.5-5.0) g/dL Globulin 3.4 (2.2-3.9) gm/dL Albumin/Globulin Ratio 0.9 L (1.0-2.1) Blood Type O POSITIVE Antibody Screen Negative 12/21/16 Range/Units 06:18 WBC 14.6 H (4.8-10.8) K/uL RBC 4.04 L (4.40-5.90) Mil/uL Hgb 7.8 L (12.0-18.0) g/dL Hct 28.0 L (35.0-51.0) % MCV 69.2 L (80.0-94.0) fL MCH 19.2 L (27.0-31.0) pg MCHC 27.8 L (33.0-37.0) g/dL RDW 25.0 H (11.5-14.5) % Plt Count 304 (130-400) K/uL MPV 7.8 (7.2-11.7) fL Neut % (Auto) 72.5 (50.0-75.0) % Lymph % (Auto) 13.7 L (20.0-40.0) % Petroleum % (Auto) 13.0 H (0.0-10.0) % Eos % (Auto) 0.3 (0.0-4.0) % Baso % (Auto) 0.5 (0.0-2.0) % Neut # 10.6 H (1.8-7.0) K/uL Lymph # 2.0 (1.0-4.3) K/uL Petroleum # 1.9 H (0.0-0.8) K/uL Eos # 0.0 (0.0-0.7) K/uL Baso # 0.1 (0.0-0.2) K/uL Sodium (132-148) mmol/L Potassium (3.6-5.2) mmol/L Chloride (98-107) mmol/L Carbon Dioxide (22-30) mmol/L Anion Gap (10-20) BUN (9-20) mg/dL Creatinine (0.8-1.5) MG/DL Est GFR ( Amer) Est GFR (Non-Af Amer) Random Glucose (75-110) mg/dL Hemoglobin A1c (4.2-6.5) % Calcium (8.6-10.4) mg/dl Phosphorus (2.5-4.5) mg/dL Magnesium (1.6-2.3) mg/dL Total Bilirubin (0.2-1.3) mg/dL AST (17-59) U/L ALT (21-72) U/L Alkaline Phosphatase (38-126) U/L Total Protein (6.3-8.3) g/dL Albumin (3.5-5.0) g/dL Globulin (2.2-3.9) gm/dL Albumin/Globulin Ratio (1.0-2.1) Blood Type Antibody Screen Laboratory Results - last 24 hr 12/21/16 12/21/16 12/21/16 06:18 06:18 06:18 WBC 14.6 H RBC 4.04 L Hgb 7.8 L Hct 28.0 L MCV 69.2 L MCH 19.2 L MCHC 27.8 L RDW 25.0 H Plt Count 304 MPV 7.8 Neut % (Auto) 72.5 Lymph % (Auto) 13.7 L Petroleum % (Auto) 13.0 H Eos % (Auto) 0.3 Baso % (Auto) 0.5 Neut # 10.6 H Lymph # 2.0 Petroleum # 1.9 H Eos # 0.0 Baso # 0.1 Sodium 136 Potassium 3.8 Chloride 105 Carbon Dioxide 22 Anion Gap 12 BUN 16 Creatinine 0.9 Est GFR ( Amer) > 60 Est GFR (Non-Af Amer) > 60 Random Glucose 82 Hemoglobin A1c 4.9 Calcium 8.7 Phosphorus 2.0 L Magnesium 2.1 Total Bilirubin 0.1 L AST 113 H D ALT 22 Alkaline Phosphatase 85 Total Protein 6.5 Albumin 3.1 L Globulin 3.4 Albumin/Globulin Ratio 0.9 L Blood Type Antibody Screen 12/21/16 10:45 WBC RBC Hgb Hct MCV MCH MCHC RDW Plt Count MPV Neut % (Auto) Lymph % (Auto) Petroleum % (Auto) Eos % (Auto) Baso % (Auto) Neut # Lymph # Petroleum # Eos # Baso # Sodium Potassium Chloride Carbon Dioxide Anion Gap BUN Creatinine Est GFR ( Amer) Est GFR (Non-Af Amer) Random Glucose Hemoglobin A1c Calcium Phosphorus Magnesium Total Bilirubin AST ALT Alkaline Phosphatase Total Protein Albumin Globulin Albumin/Globulin Ratio Blood Type O POSITIVE Antibody Screen Negative EKG/Cardiology Studies: Cardiology / EKG Studies 12/21/16 09:00 EKG [ELECTROCARDIOGRAM] DAILY Comment: Mode Of Transportation: Reason For Exam: NSTEMI 12/22/16 09:00 EKG [ELECTROCARDIOGRAM] DAILY Comment: Mode Of Transportation: Reason For Exam: NSTEMI 12/23/16 09:00 EKG [ELECTROCARDIOGRAM] DAILY Comment: Mode Of Transportation: Reason For Exam: NSTEMI 12/24/16 09:00 EKG [ELECTROCARDIOGRAM] DAILY Comment: Mode Of Transportation: Reason For Exam: NSTEMI Critical Care Progress Note - Nutrition Nutrition: Nutrition Category Date Time Status Heart Healthy Diet [DIET] Diets 12/20/16 Dinner Active Attending/Attestation - Attestation I have personally seen and examined this patient.: Yes I have fully participated in the care of the patient.: Yes I have reviewed all pertinent clinical information: Yes Notes (Text): 12/21/16 18:03 Patient seen and examined in the intensive care unit. Case discussed with house staff in the morning rounds. Status post stent placement, comfortable with no chest pain Patient to be transfused 1 unit because of anemia Continue present treatment as per cardiology
--- NOTE | 2016-12-21 11:23 | PN ---
DATE: 12/21/2016 LOCATION: ICU 11. This is a 71-year-old male seen and examined in rounds who is status post cardiac catheterization. No reported active GI bleeding this morning. The entire chart is reviewed including, but not limited to, most recent lab and radiology study resul ts, current and previous medication lists, current and the previous medical events. It has to be men tioned that today's labs showed leukocytosis of 14.6 but subsequent drop of hemoglobin to 7.8 with he matocrit 28.0 with low indices, highly suggestive of hypochromic microcytic anemia, but with normal p latelet count with increased AST to ____ (less than before), with increased troponin level as report ed before, albumin dropped to 3.1. PHYSICAL EXAMINATION: GENERAL: A 71-year-old male appears to be awake, alert, oriented. VITAL SIGNS: Afebrile with pulse of 90, respiratory rate 20-22 with blood pressure 124/58. HEENT: Showed pale, dry oral mucoid membrane. Nonicteric sclerae. LUNGS: A few scattered crepitations. Decreased air entry at bases. HEART: Positive S1 and S2. ABDOMEN: Soft. Bowel sounds are present. No mass or organomegaly. No rebound tenderness or guardi ng. RECTAL: Deferred. EXTREMITIES: Without significant edema, clubbing or cyanosis. NEUROLOGIC: No reported new neurologic deficits, sensory or motor. IMPRESSION: 1. Anemia. 2. Status post cardiac catheterization with stent insertion. 3. Peptic ulcer disease by history. 4. Known history of hypertension. 5. Recent history of esophageal candidiasis, gastritis with colon polyp removed by polypectomy. SUGGESTION: 1. Continue current management. 2. Guaiac all the stool daily x 3. 3. Blood transfusion as needed only to keep hemoglobin around 10 g%. Low Quinonez MD cc: 14 TT: 12/21/2016 11:22:59 Confirmation # [id number] Dictation # [id number]
--- NOTE | 2016-12-21 23:04 | CP.PCM.PN ---
Subjective - Date & Time of Evaluation Date of Evaluation: 12/21/16 Time of Evaluation: 12:05 - Subjective Subjective: Patient dropped Hgb For PRBC transfusion Check stool guiac No cardiac symptoms Objective - Vital Signs/Intake and Output Vital Signs (last 24 hours): Temp Pulse Resp BP Pulse Ox 98.3 F 89 30 H 123/59 L 99 12/21/16 20:00 12/21/16 22:00 12/21/16 22:00 12/21/16 21:55 12/21/16 22:00 Intake and Output: 12/21/16 12/22/16 18:59 06:59 Intake Total 1645 615 Output Total 1180 200 Balance 465 415 - Medications Medications: Current Medications Acetaminophen (Tylenol 325mg Tab) 650 mg PO Q6 PRN PRN Reason: Pain, Mild (1-3) Aspirin (Aspirin Chewable) 81 mg PO DAILY [facility] Last Admin: 12/21/16 09:53 Dose: 81 mg Carvedilol (Coreg) 3.125 mg PO BID [facility] Last Admin: 12/21/16 17:02 Dose: 3.125 mg Docusate Sodium (Colace) 100 mg PO TID [facility] Last Admin: 12/21/16 17:02 Dose: 100 mg Enalapril Maleate (Vasotec) 10 mg PO DAILY [facility] Last Admin: 12/21/16 09:58 Dose: 10 mg Enoxaparin Sodium (Lovenox) 40 mg SC DAILY [facility] Last Admin: 12/21/16 09:52 Dose: 40 mg Ondansetron HCl (Zofran Inj) 4 mg IVP Q6H PRN PRN Reason: Nausea/Vomiting Pantoprazole Sodium (Protonix Ec Tab) 40 mg PO DAILY [facility] Last Admin: 12/21/16 09:52 Dose: 40 mg Potassium Phos/Sodium Phos (Neutra-Phos) 1 pkt PO BIDCC [facility] Last Admin: 12/21/16 17:00 Dose: 1 pkt Rosuvastatin Calcium (Crestor) 40 mg PO HS [facility] Last Admin: 12/21/16 21:21 Dose: 40 mg Ticagrelor (Brilinta) 90 mg PO BID [facility] Last Admin: 12/21/16 17:02 Dose: 90 mg - Labs Labs: 12/21/16 06:18 12/21/16 06:18 PT 15.5 SECONDS (9.7-12.2) H 12/20/16 06:30 INR 1.3 12/20/16 06:30 APTT 45 SECONDS (21-34) H D 12/20/16 06:30
[2016-12-21 23:25] LABS: HEMATOCRIT 29.8 % (35.0-51.0); MEAN CELL VOLUME 72.5 fL (80.0-94.0); MEAN CORPUSCULAR HEMOGLOBIN 21.6 pg (27.0-31.0); MEAN CORPUSCULAR HGB CONC 29.7 g/dL (33.0-37.0); MEAN PLATELET VOLUME 7.7 fL (7.2-11.7); RED CELL DISTRIBUTION WIDTH 26.7 % (11.5-14.5); WHITE BLOOD COUNT 14.1 K/uL (4.8-10.8)
[2016-12-22 06:45] LABS: CHLORIDE 106 mmol/L (98-107)
[2016-12-22 06:46] LABS: POTASSIUM 3.7 mmol/L (3.6-5.2); SODIUM 138 mmol/L (132-148)
[2016-12-22 06:48] LABS: ALB/GLOB RATIO 0.9 (1.0-2.1); ALKALINE PHOSPHATASE 95 U/L (38-126); ALT/SGPT 19 U/L (21-72); AST/SGOT 74 U/L (17-59); BLOOD UREA NITROGEN 11 mg/dL (9-20); CARBON DIOXIDE 20 mmol/L (22-30); GFR AFRICAN-AMERICAN > 60; GLUCOSE,RANDOM 81 mg/dL (75-110); PHOSPHOROUS 2.8 mg/dL (2.5-4.5); TOTAL PROTEIN 6.5 g/dL (6.3-8.3)
[2016-12-22 06:49] LABS: MAGNESIUM 1.9 mg/dL (1.6-2.3)
[2016-12-22 07:04] LABS: HEMATOCRIT 30.7 % (35.0-51.0); MEAN CELL VOLUME 72.2 fL (80.0-94.0); MEAN CORPUSCULAR HEMOGLOBIN 21.5 pg (27.0-31.0); MEAN CORPUSCULAR HGB CONC 29.7 g/dL (33.0-37.0); MEAN PLATELET VOLUME 8.3 fL (7.2-11.7); RED CELL DISTRIBUTION WIDTH 27.5 % (11.5-14.5); WHITE BLOOD COUNT 13.5 K/uL (4.8-10.8)
--- NOTE | 2016-12-22 07:04 | HP ---
The patient ____ complains of chest pain, shortness of breath, ____ hypertension. PHYSICAL EXAMINATION: GENERAL: The patient is awake, alert and oriented. VITAL SIGNS: Temperature 98, pulse ____. HEENT: Within normal limits. NECK: Supple. CHEST: Symmetrical. HEART: Regular. ABDOMEN: Soft. EXTREMITIES: ____. ____. The patient will get bedrest, supportive care ____ evaluation ____ monitoring. Stephanie Bond MD cc: [id number] TT: 12/21/2016 13:03:38 ct 12/22/2016 06:02:25
[2016-12-22] MEDS: Potassium & Sodium Phosphate PO SCH (07:36)
[2016-12-22] MEDS: Enoxaparin 40 mg Syringe SC SCH (09:23)
[2016-12-22] MEDS: Pantoprazole 40 mg EC Tab PO SCH (09:23)
[2016-12-22] MEDS: POLYETHYLENE GLYCOL 3350 17 GM/Dose PACKET PO SCH (11:56)
--- NOTE | 2016-12-22 12:05 | CP.CCUPN ---
<Bibi Lu - Last Filed: 12/22/16 12:02> CCU Subjective - Physician Review Subjective (Free Text): Patient was seen and examined at bedside. Patient reports no chest pain, abdominal pain, or any other acute complaints. S/P successful intervention of LAD. L Cx and OM arteries with 3 Drug Eluting Stents POD #2. Left and right groin dressing were C/D/I, no hematomas were noted. Patient received 2 units PRBCs yesterday. Hemoglobin is stable at 9.1 today. Patient is transferred to TELEMETRY for further monitoring. CCU Objective - Vital Signs / Intake & Output Vital Signs (Last 4 hours): Vital Signs Pulse Resp BP Pulse Ox 12/22/16 10:55 85 20 118/57 L 100 12/22/16 10:40 85 16 108/54 L 97 12/22/16 10:26 84 25 H 107/52 L 100 12/22/16 10:10 90 20 118/58 L 100 12/22/16 10:05 90 23 125/61 100 12/22/16 10:04 89 20 12/22/16 09:40 88 17 115/61 100 12/22/16 09:26 100 H 17 120/65 100 12/22/16 09:23 117/65 12/22/16 09:11 90 17 117/65 99 12/22/16 09:00 88 29 H 100 12/22/16 08:55 96 H 15 128/70 99 12/22/16 08:41 95 H 14 135/57 L 100 12/22/16 08:25 86 16 120/67 99 12/22/16 08:10 83 12 128/62 98 Intake and Output (Last 8hrs): Intake & Output 12/21/16 12/22/16 12/22/16 22:59 06:59 14:59 Intake Total 1170 340 360 Output Total 680 1100 300 Balance 490 -760 60 Weight 139 lb Intake: Oral 420 340 360 Blood Product 650 Red Blood Cells Cpd As1 325 Lr Unit [id number] Red Blood Cells Cpd As1 325 Lr Unit [id number] Other 100 Red Blood Cells Cpd As1 50 Lr Unit [id number] Red Blood Cells Cpd As1 50 Lr Unit [id number] Output: Urine 480 900 300 Urine, Voided 480 900 300 Stool 200 200 - Physical Exam Head: Positive for: Atraumatic, Normocephalic Pupils: Positive for: PERRL Extroacular Muscles: Positive for: EOMI Conjunctiva: Positive for: Normal Mouth: Positive for: Moist Mucous Membranes Neck: Positive for: Normal Range of Motion Respiratory/Chest: Positive for: Clear to Auscultation, Good Air Exchange. Negative for: Respiratory Distress, Accessory Muscle Use Cardiovascular: Positive for: Regular Rate and Rhythm, Normal S1, S2 Abdomen: Positive for: Normal Bowel Sounds. Negative for: Tenderness, Distention Upper Extremity: Positive for: Normal Inspection. Negative for: Cyanosis, Edema Lower Extremity: Positive for: Normal Inspection, Edema, NORMAL PULSES. Negative for: CALF TENDERNESS Neurological: Positive for: GCS=15 Skin: Positive for: Warm, Dry, Normal Color Psychiatric: Positive for: Alert, Oriented x 3 - Medications Active Medications: Active Medications Generic Name Dose Route Start Last Admin Trade Name Freq PRN Reason Stop Dose Admin Aspirin 81 mg 12/20/16 10:00 12/22/16 09:23 Aspirin Chewable PO 81 mg DAILY CARLOS Administration Carvedilol 3.125 mg 12/21/16 10:00 12/22/16 09:23 Coreg PO 3.125 mg BID CARLOS Administration Docusate Sodium 100 mg 12/21/16 12:30 12/22/16 09:23 Colace PO 100 mg TID CARLOS Administration Enalapril Maleate 10 mg 12/20/16 10:00 12/22/16 09:23 Vasotec PO 10 mg DAILY CARLOS Administration Enoxaparin Sodium 40 mg 12/21/16 10:00 12/22/16 09:23 Lovenox SC 40 mg DAILY CARLOS Administration Pantoprazole Sodium 40 mg 12/20/16 10:00 12/22/16 09:23 Protonix Ec Tab PO 40 mg DAILY CARLOS Administration Polyethylene Glycol 17 gm 12/22/16 12:00 12/22/16 11:56 Miralax PO 17 gm DAILY CARLOS Administration Rosuvastatin Calcium 40 mg 12/19/16 22:00 12/21/16 21:21 Crestor PO 40 mg HS CARLOS Administration Ticagrelor 90 mg 12/20/16 18:00 12/22/16 09:23 Brilinta PO 90 mg BID CARLOS Administration - Patient Studies Lab Studies: Lab Studies 12/22/16 12/22/16 12/21/16 Range/Units 06:15 06:15 23:26 WBC 13.5 H 14.1 H (4.8-10.8) K/uL RBC 4.25 L 4.11 L (4.40-5.90) Mil/uL Hgb 9.1 L 8.9 L (12.0-18.0) g/dL Hct 30.7 L 29.8 L (35.0-51.0) % MCV 72.2 L 72.5 L D (80.0-94.0) fL MCH 21.5 L 21.6 L (27.0-31.0) pg MCHC 29.7 L 29.7 L (33.0-37.0) g/dL RDW 27.5 H 26.7 H (11.5-14.5) % Plt Count 277 251 (130-400) K/uL MPV 8.3 7.7 (7.2-11.7) fL Sodium 138 (132-148) mmol/L Potassium 3.7 (3.6-5.2) mmol/L Chloride 106 (98-107) mmol/L Carbon Dioxide 20 L (22-30) mmol/L Anion Gap 16 (10-20) BUN 11 (9-20) mg/dL Creatinine 0.8 (0.8-1.5) MG/DL Est GFR ( Amer) > 60 Est GFR (Non-Af Amer) > 60 Random Glucose 81 (75-110) mg/dL Calcium 9.0 (8.6-10.4) mg/dl Phosphorus 2.8 (2.5-4.5) mg/dL Magnesium 1.9 (1.6-2.3) mg/dL Total Bilirubin 1.0 (0.2-1.3) mg/dL AST 74 H D (17-59) U/L ALT 19 L (21-72) U/L Alkaline Phosphatase 95 (38-126) U/L Total Protein 6.5 (6.3-8.3) g/dL Albumin 3.0 L (3.5-5.0) g/dL Globulin 3.5 (2.2-3.9) gm/dL Albumin/Globulin Ratio 0.9 L (1.0-2.1) Blood Type Antibody Screen 12/21/16 Range/Units 10:45 WBC (4.8-10.8) K/uL RBC (4.40-5.90) Mil/uL Hgb (12.0-18.0) g/dL Hct (35.0-51.0) % MCV (80.0-94.0) fL MCH (27.0-31.0) pg MCHC (33.0-37.0) g/dL RDW (11.5-14.5) % Plt Count (130-400) K/uL MPV (7.2-11.7) fL Sodium (132-148) mmol/L Potassium (3.6-5.2) mmol/L Chloride (98-107) mmol/L Carbon Dioxide (22-30) mmol/L Anion Gap (10-20) BUN (9-20) mg/dL Creatinine (0.8-1.5) MG/DL Est GFR ( Amer) Est GFR (Non-Af Amer) Random Glucose (75-110) mg/dL Calcium (8.6-10.4) mg/dl Phosphorus (2.5-4.5) mg/dL Magnesium (1.6-2.3) mg/dL Total Bilirubin (0.2-1.3) mg/dL AST (17-59) U/L ALT (21-72) U/L Alkaline Phosphatase (38-126) U/L Total Protein (6.3-8.3) g/dL Albumin (3.5-5.0) g/dL Globulin (2.2-3.9) gm/dL Albumin/Globulin Ratio (1.0-2.1) Blood Type O POSITIVE Antibody Screen Negative Laboratory Results - last 24 hr 12/21/16 12/21/16 12/22/16 10:45 23:26 06:15 WBC 14.1 H 13.5 H RBC 4.11 L 4.25 L Hgb 8.9 L 9.1 L Hct 29.8 L 30.7 L MCV 72.5 L D 72.2 L MCH 21.6 L 21.5 L MCHC 29.7 L 29.7 L RDW 26.7 H 27.5 H Plt Count 251 277 MPV 7.7 8.3 Sodium Potassium Chloride Carbon Dioxide Anion Gap BUN Creatinine Est GFR ( Amer) Est GFR (Non-Af Amer) Random Glucose Calcium Phosphorus Magnesium Total Bilirubin AST ALT Alkaline Phosphatase Total Protein Albumin Globulin Albumin/Globulin Ratio Blood Type O POSITIVE Antibody Screen Negative 12/22/16 06:15 WBC RBC Hgb Hct MCV MCH MCHC RDW Plt Count MPV Sodium 138 Potassium 3.7 Chloride 106 Carbon Dioxide 20 L Anion Gap 16 BUN 11 Creatinine 0.8 Est GFR ( Amer) > 60 Est GFR (Non-Af Amer) > 60 Random Glucose 81 Calcium 9.0 Phosphorus 2.8 Magnesium 1.9 Total Bilirubin 1.0 AST 74 H D ALT 19 L Alkaline Phosphatase 95 Total Protein 6.5 Albumin 3.0 L Globulin 3.5 Albumin/Globulin Ratio 0.9 L Blood Type Antibody Screen EKG/Cardiology Studies: Cardiology / EKG Studies 12/22/16 09:00 EKG [ELECTROCARDIOGRAM] DAILY Comment: Mode Of Transportation: Reason For Exam: NSTEMI 12/23/16 09:00 EKG [ELECTROCARDIOGRAM] DAILY Comment: Mode Of Transportation: Reason For Exam: NSTEMI 12/24/16 09:00 EKG [ELECTROCARDIOGRAM] DAILY Comment: Mode Of Transportation: Reason For Exam: NSTEMI Critical Care Progress Note - Nutrition Nutrition: Nutrition Category Date Time Status Heart Healthy Diet [DIET] Diets 12/20/16 Dinner Active Assessment/Plan - Assessment and Plan (Free Text) Assessment: 71 M with PMHx HTN presents to the ED with chest pain x1 day, EKG showed NSTEMI with troponin of 14.9. Plan: Chest pain * EKG: ST depression V2-V3, TWI V6 99HR, NSTEMI * 1st INGRID: Troponin of 14.9, 20.2, 25.7, 27.5 * Cardiology- Dr. Andersen consulted - help appreciated - patient underwent Cardiac Cath: triple vessel disease, LAD, circumflex and RCA. s/p successful intervention of LAD. L Cx and OM arteries with 3 Drug Eluting Stents. RCA Intervention after 6 weeks * Started on ASA and Brilinta * Started Crestor 40mg PO HS * Lipid panel WNL, HgA1C: 5.0 Hx HTN * Restarted home medication: Enalapril 10mg PO Daily (equivalent to home Benazepril) * Coreg 3.125mg PO BID Hx Anemia * Patient had a recent admission for abnormal labs. Dr. Quinonez was consulted. Patient underwent EGD and colonoscopy. EGD showed esophageal candidiasis and peptic ulcer disease. The colonoscopy revealed a colon polyp which was removed and biopsied. Patient was to follow up with Dr. Quinonez 1 week after discharge. * Elevated CEA- 4.0 * Hemoglobin 7.8 - will be transfused 2 units of PRBCs. Hemoglobin today is 9.1. * Dr. Quinonez was made aware, will follow up stool occult. * F/U stool occult Hx Elevated PSA * PSA 6.31 * Patient needs to follow up with urology as an outpatient. Prophylactic Measures * GI PPX: Protonix 40mg PO daily * DVT PPX: SCDs * Heart Healthy Diet * Zofran PRN Patient is transferred to TELEMETRY DW Aly Pinto DO, PGY-1 <Monserrat Pitts - Last Filed: 12/22/16 13:58> CCU Objective - Vital Signs / Intake & Output Vital Signs (Last 4 hours): Vital Signs Temp Pulse Resp BP Pulse Ox 12/22/16 12:00 98.1 F 12/22/16 10:55 85 20 118/57 L 100 12/22/16 10:40 85 16 108/54 L 97 12/22/16 10:26 84 25 H 107/52 L 100 12/22/16 10:10 90 20 118/58 L 100 12/22/16 10:05 90 23 125/61 100 12/22/16 10:04 89 20 Intake and Output (Last 8hrs): Intake & Output 12/21/16 12/22/16 12/22/16 22:59 06:59 14:59 Intake Total 1170 340 520 Output Total 680 1100 550 Balance 490 -760 -30 Weight 139 lb Intake: Oral 420 340 520 Blood Product 650 Red Blood Cells Cpd As1 325 Lr Unit [id number] Red Blood Cells Cpd As1 325 Lr Unit [id number] Other 100 Red Blood Cells Cpd As1 50 Lr Unit [id number] Red Blood Cells Cpd As1 50 Lr Unit [id number] Output: Urine 480 900 550 Urine, Voided 480 900 550 Stool 200 200 - Medications Active Medications: Active Medications Generic Name Dose Route Start Last Admin Trade Name Freq PRN Reason Stop Dose Admin Aspirin 81 mg 12/20/16 10:00 12/22/16 09:23 Aspirin Chewable PO 81 mg DAILY CARLOS Administration Carvedilol 3.125 mg 12/21/16 10:00 12/22/16 09:23 Coreg PO 3.125 mg BID CARLOS Administration Docusate Sodium 100 mg 12/21/16 12:30 12/22/16 13:21 Colace PO 100 mg TID CARLOS Administration Enalapril Maleate 10 mg 12/20/16 10:00 12/22/16 09:23 Vasotec PO 10 mg DAILY CARLOS Administration Enoxaparin Sodium 40 mg 12/21/16 10:00 12/22/16 09:23 Lovenox SC 40 mg DAILY CARLOS Administration Pantoprazole Sodium 40 mg 12/20/16 10:00 12/22/16 09:23 Protonix Ec Tab PO 40 mg DAILY CARLOS Administration Polyethylene Glycol 17 gm 12/22/16 12:00 12/22/16 11:56 Miralax PO 17 gm DAILY CARLOS Administration Rosuvastatin Calcium 40 mg 12/19/16 22:00 12/21/16 21:21 Crestor PO 40 mg HS CARLOS Administration Ticagrelor 90 mg 12/20/16 18:00 12/22/16 09:23 Brilinta PO 90 mg BID CARLOS Administration - Patient Studies Lab Studies: Lab Studies 12/22/16 12/22/16 12/21/16 Range/Units 06:15 06:15 23:26 WBC 13.5 H 14.1 H (4.8-10.8) K/uL RBC 4.25 L 4.11 L (4.40-5.90) Mil/uL Hgb 9.1 L 8.9 L (12.0-18.0) g/dL Hct 30.7 L 29.8 L (35.0-51.0) % MCV 72.2 L 72.5 L D (80.0-94.0) fL MCH 21.5 L 21.6 L (27.0-31.0) pg MCHC 29.7 L 29.7 L (33.0-37.0) g/dL RDW 27.5 H 26.7 H (11.5-14.5) % Plt Count 277 251 (130-400) K/uL MPV 8.3 7.7 (7.2-11.7) fL Sodium 138 (132-148) mmol/L Potassium 3.7 (3.6-5.2) mmol/L Chloride 106 (98-107) mmol/L Carbon Dioxide 20 L (22-30) mmol/L Anion Gap 16 (10-20) BUN 11 (9-20) mg/dL Creatinine 0.8 (0.8-1.5) MG/DL Est GFR ( Amer) > 60 Est GFR (Non-Af Amer) > 60 Random Glucose 81 (75-110) mg/dL Calcium 9.0 (8.6-10.4) mg/dl Phosphorus 2.8 (2.5-4.5) mg/dL Magnesium 1.9 (1.6-2.3) mg/dL Total Bilirubin 1.0 (0.2-1.3) mg/dL AST 74 H D (17-59) U/L ALT 19 L (21-72) U/L Alkaline Phosphatase 95 (38-126) U/L Total Protein 6.5 (6.3-8.3) g/dL Albumin 3.0 L (3.5-5.0) g/dL Globulin 3.5 (2.2-3.9) gm/dL Albumin/Globulin Ratio 0.9 L (1.0-2.1) Blood Type Antibody Screen 12/21/16 Range/Units 10:45 WBC (4.8-10.8) K/uL RBC (4.40-5.90) Mil/uL Hgb (12.0-18.0) g/dL Hct (35.0-51.0) % MCV (80.0-94.0) fL MCH (27.0-31.0) pg MCHC (33.0-37.0) g/dL RDW (11.5-14.5) % Plt Count (130-400) K/uL MPV (7.2-11.7) fL Sodium (132-148) mmol/L Potassium (3.6-5.2) mmol/L Chloride (98-107) mmol/L Carbon Dioxide (22-30) mmol/L Anion Gap (10-20) BUN (9-20) mg/dL Creatinine (0.8-1.5) MG/DL Est GFR ( Amer) Est GFR (Non-Af Amer) Random Glucose (75-110) mg/dL Calcium (8.6-10.4) mg/dl Phosphorus (2.5-4.5) mg/dL Magnesium (1.6-2.3) mg/dL Total Bilirubin (0.2-1.3) mg/dL AST (17-59) U/L ALT (21-72) U/L Alkaline Phosphatase (38-126) U/L Total Protein (6.3-8.3) g/dL Albumin (3.5-5.0) g/dL Globulin (2.2-3.9) gm/dL Albumin/Globulin Ratio (1.0-2.1) Blood Type O POSITIVE Antibody Screen Negative Laboratory Results - last 24 hr 12/21/16 12/21/16 12/22/16 10:45 23:26 06:15 WBC 14.1 H 13.5 H RBC 4.11 L 4.25 L Hgb 8.9 L 9.1 L Hct 29.8 L 30.7 L MCV 72.5 L D 72.2 L MCH 21.6 L 21.5 L MCHC 29.7 L 29.7 L RDW 26.7 H 27.5 H Plt Count 251 277 MPV 7.7 8.3 Sodium Potassium Chloride Carbon Dioxide Anion Gap BUN Creatinine Est GFR ( Amer) Est GFR (Non-Af Amer) Random Glucose Calcium Phosphorus Magnesium Total Bilirubin AST ALT Alkaline Phosphatase Total Protein Albumin Globulin Albumin/Globulin Ratio Blood Type O POSITIVE Antibody Screen Negative 12/22/16 06:15 WBC RBC Hgb Hct MCV MCH MCHC RDW Plt Count MPV Sodium 138 Potassium 3.7 Chloride 106 Carbon Dioxide 20 L Anion Gap 16 BUN 11 Creatinine 0.8 Est GFR ( Amer) > 60 Est GFR (Non-Af Amer) > 60 Random Glucose 81 Calcium 9.0 Phosphorus 2.8 Magnesium 1.9 Total Bilirubin 1.0 AST 74 H D ALT 19 L Alkaline Phosphatase 95 Total Protein 6.5 Albumin 3.0 L Globulin 3.5 Albumin/Globulin Ratio 0.9 L Blood Type Antibody Screen EKG/Cardiology Studies: Cardiology / EKG Studies 12/22/16 09:00 EKG [ELECTROCARDIOGRAM] DAILY Comment: Mode Of Transportation: Reason For Exam: NSTEMI 12/23/16 09:00 EKG [ELECTROCARDIOGRAM] DAILY Comment: Mode Of Transportation: Reason For Exam: NSTEMI 12/24/16 09:00 EKG [ELECTROCARDIOGRAM] DAILY Comment: Mode Of Transportation: Reason For Exam: NSTEMI Critical Care Progress Note - Nutrition Nutrition: Nutrition Category Date Time Status Heart Healthy Diet [DIET] Diets 12/20/16 Dinner Active Attending/Attestation - Attestation I have personally seen and examined this patient.: Yes I have fully participated in the care of the patient.: Yes I have reviewed all pertinent clinical information: Yes Notes (Text): 12/22/16 13:49 Patient seen and examined in the morning, doing well. s/p multiple stent placements. Statins, aspirin, brillanta, b-blockers, veronica inhibitors. OK for transfer to the floors.
--- NOTE | 2016-12-22 18:48 | CARD ---
APPROVED REPORT EKG Measurement Heart [id number] CA [id number] <Conclusion> Normal sinus rhythm ST & T wave abnormality, consider lateral ischemia Abnormal ECG
--- NOTE | 2016-12-22 18:50 | CARD ---
APPROVED REPORT EKG Measurement Heart [id number] [place] 146P60 [id number] <Conclusion> Normal sinus rhythm ST & T wave abnormality, consider anterolateral ischemia Abnormal ECG
--- NOTE | 2016-12-22 21:35 | CP.PCM.PN ---
Subjective - Date & Time of Evaluation Date of Evaluation: 12/22/16 Time of Evaluation: 07:30 - Subjective Subjective: Patient seen and evaluated S/P PRBC transfusion Hgb today stable Continue to monitor Hgb Objective - Vital Signs/Intake and Output Vital Signs (last 24 hours): Temp Pulse Resp BP Pulse Ox 98.1 F 88 19 119/62 98 12/22/16 12:00 12/22/16 20:00 12/22/16 20:00 12/22/16 17:55 12/22/16 20:00 Intake and Output: 12/22/16 12/23/16 18:59 06:59 Intake Total 780 Output Total 550 Balance 230 - Medications Medications: Current Medications Aspirin (Aspirin Chewable) 81 mg PO DAILY [facility] Last Admin: 12/22/16 09:23 Dose: 81 mg Carvedilol (Coreg) 3.125 mg PO BID [facility] Last Admin: 12/22/16 17:54 Dose: 3.125 mg Docusate Sodium (Colace) 100 mg PO TID [facility] Last Admin: 12/22/16 17:54 Dose: 100 mg Enalapril Maleate (Vasotec) 10 mg PO DAILY [facility] Last Admin: 12/22/16 09:23 Dose: 10 mg Enoxaparin Sodium (Lovenox) 40 mg SC DAILY [facility] Last Admin: 12/22/16 09:23 Dose: 40 mg Pantoprazole Sodium (Protonix Ec Tab) 40 mg PO DAILY [facility] Last Admin: 12/22/16 09:23 Dose: 40 mg Polyethylene Glycol (Miralax) 17 gm PO DAILY [facility] Last Admin: 12/22/16 11:56 Dose: 17 gm Rosuvastatin Calcium (Crestor) 40 mg PO HS [facility] Last Admin: 12/21/16 21:21 Dose: 40 mg Ticagrelor (Brilinta) 90 mg PO BID [facility] Last Admin: 12/22/16 17:54 Dose: 90 mg - Labs Labs: 12/22/16 06:15 12/22/16 06:15 PT 15.5 SECONDS (9.7-12.2) H 12/20/16 06:30 INR 1.3 12/20/16 06:30 APTT 45 SECONDS (21-34) H D 12/20/16 06:30
--- NOTE | 2016-12-23 12:11 | PN ---
DATE: 12/23/2016 LOCATION: ICU 11. This 71-year-old male seen and examined at rounds appears to be awake, alert, oriented. Tolerating o ral intake well without reporting active bleeding. No nausea or vomiting. The left groin dressing p ost cardiac catheterization procedure appears to be intact and dry. The entire chart is reviewed including, but not limited to, most recent lab and radiology study resul ts, current and previous medication lists, current and the previous medical events as well as allergi es to medication list. Case discussed with the staff at length in the intensive care unit, and the p atient still has leukocytosis of 13.5 with low hemoglobin 9.1, low hematocrit 30.7 with low indices h ighly suggestive of hypochromic microcytic anemia with low CO2 content of 20, with elevated AST 74 bu t normal total bilirubin with low albumin 3.0. PHYSICAL EXAMINATION: GENERAL: A 71-year-old male stable clinically; appears to be awake, alert, oriented. VITAL SIGNS: Afebrile with pulse of 84, respiratory rate 18-20, blood pressure of 128/58. HEENT: Showed pale, dry oral mucoid membrane. Nonicteric sclerae. LUNGS: Few scattered crepitation, decreased air entry at bases. HEART: Positive S1 and S2. ABDOMEN: Soft. Bowel sounds are present. No mass or organomegaly. No rebound tenderness or guardi ng. EXTREMITIES: With slight lower extremity edematous changes. No clubbing or cyanosis. NEUROLOGIC: No reported new neurological deficits, sensory or motor. IMPRESSION: 1. Anemia, patient received 2 units of blood transfusion with subsequent increase of hemoglobin and hematocrit. 2. Peptic ulcer disease. 3. Coronary artery disease with status post cardiac catheterization and stent insertion. 4. Known history of hypertension. 5. Known history of esophageal candidiasis. 6. Status post colonoscopy with a polypectomy. SUGGESTION: 1. Agree with your plan. 2. Repeat stool for occult blood. 3. Further evaluation and recommendation to follow. Low Quinonez MD cc: 14 TT: 12/23/2016 12:11:18 Confirmation # [id number] Dictation # [id number] mn
[2016-12-23] MEDS: Enoxaparin 40 mg Syringe SC SCH (12:48)
[2016-12-23] MEDS: Pantoprazole 40 mg EC Tab PO SCH (12:48)
[2016-12-23] MEDS: POLYETHYLENE GLYCOL 3350 17 GM/Dose PACKET PO SCH (12:48)
[2016-12-23 17:34] VITALS: BP 121/71; PULSE 80; RESP 19; TEMP 97; O2SAT 99
--- NOTE | 2016-12-24 23:27 | CON ---
DATE: 12/19/[address] Low Quinonez to Dr. Stephanie Bond. I was called for GI consultation by the admitting MD. The patient is seen and fully examined on 11/27, as requested by the admitting medical team for GI consultation. The entire chart is reviewed , including, but not limited to, most recent lab and radiology study results, current and previous me dication list, current and the previous medical events, allergies to medications list, as well as all the available current and the previous medical records. Case discussed at length with the staff in the intensive care unit. 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 Was admitted to the hospital through the Emergency Room with a complaint of chest pain, ca rdiac versus noncardiac, associated with right-sided chest discomfort, intermittent in nature, with p eriods of nausea and dyspepsia, but no reported active bleeding. No reported complaining of shortness of breath, palpitation. It has to be mentioned that the patient was recently in the hospital, had upper and lower endoscopy d ue to a reported GI blood loss and his anemia, with a blood transfusion recently. PAST MEDICAL HISTORY: Including, but not limited to: 1. Hypertension. 2. Peptic ulcer disease. 3. Anemia. 4. Recently reported colon polyp with status post polypectomy by colonoscopy. FAMILY HISTORY: Unknown. SOCIAL HISTORY: Denied any recent history of cigarette smoking or alcohol intake. CURRENT MEDICATIONS: Medication list was reviewed. ALLERGY TO MEDICATION: List is reevaluated. After being admitted to the hospital, the patient was found to have low hemoglobin of 9.5 with hemato crit 33.5, with thrombocytosis of 405, with increased white blood cells to 17.5, with low BUN and low creatinine, but mildly elevated blood glucose level to 117. The patient had been recently on antiacid reflux and to be started on anticoagulation once assumption of no evidence of active GI bleeding. PHYSICAL EXAMINATION: GENERAL: A 71-year-old male, awake, alert, oriented. VITAL SIGNS: Afebrile with pulse of 100, respiratory rate 20-22, with blood pressure 150/78. HEENT: Showed pale, dry oral mucoid membrane. Nonicteric sclerae. LUNGS: Few scattered crepitation, decreased air entry at bases. LYMPHATICS: No lymphadenitis or lymphadenopathy. HEART: Positive S1 and S2 with increased rate. ABDOMEN: Soft with slight generalized tenderness. Bowel sounds are present. No mass or organomegal y. No rebound tenderness or guarding. RECTAL: Deferred due to patient's main complaint of chest pain. EXTREMITIES: Without significant clubbing, cyanosis, or edema. NEUROLOGIC: No reported new neurological deficit, sensory or motor. IMPRESSION: 1. Anemia, rule out recent gastrointestinal blood loss, upper versus lower. 2. Chest pain, cardiac versus noncardiac, keeping in mind that the patient was diagnosed recently peptic ulcer disease, as well as colon polyp, as per the records. 3. Rule out acute civ-GG-molshcx elevation myocardial infarction with possible coronary artery disea se. 4. Known history of hypertension. SUGGESTION: 1. Agree with your plan. 2. Blood cultures x 2 due to the patient's leukocytosis. 3. Antireflux measure. Proton pump inhibitor. Repeat cancer markers. Guaiac all the stools daily x 3. 4. The patient has no clear evidence of active GI bleeding and, due to his chest pain, anticoagulati on is to be started. Case discussed at length with Dr. Karan Andersen, the aws consultant on case, and the patient may need cardiac cath for evaluation of his coronary artery disease. Thank you for letting me participate in your patient's case management. Further recommendation and e valuation to follow. Low Quinonez MD cc: 14 TT: 12/24/2016 23:27:10 Confirmation # [id number] Dictation # [id number] jay jay
--- NOTE | 2016-12-26 08:01 | DS ---
The patient admitted to the hospital with chief complaint of chest pain. The patient found to have S T segment elevation acute NH. The patient got bedrest, cardiology evaluation, supportive care. Stephanie Bond MD cc: [id number] TT: 12/25/2016 07:47:43 en
--- NOTE | 2016-12-28 11:09 | CARD ---
APPROVED REPORT EKG Measurement Heart [id number] MD 142P19 [id number] <Conclusion> Normal sinus rhythm Nonspecific T wave abnormality Abnormal ECG
== END 2016-12-23 12:30 | disposition home or self-care (01) | DRG 247 ==
LOC: C.ER 08:28 → C.9I 11:53
PROVIDERS: ADMIT Internal Medicine Pulmonary Disease; ATTEND Internal Medicine Pulmonary Disease
PROC: 4A023N7 Measurement of Cardiac Sampling and Pressure, Left Heart, Percutaneous Approach (ICD-10-PCS; principal; 2016-12-19)
PROC: B201YZZ Plain Radiography of Multiple Coronary Arteries using Other Contrast (ICD-10-PCS; 2016-12-19)
PROC: B205YZZ Plain Radiography of Left Heart using Other Contrast (ICD-10-PCS; 2016-12-19)
PROC: 027136Z Dilation of Coronary Artery, Two Arteries with Three Drug-eluting Intraluminal Devices, Percutaneous Approach (ICD-10-PCS; 2016-12-20)
PROC: 30233N1 Transfusion of Nonautologous Red Blood Cells into Peripheral Vein, Percutaneous Approach (ICD-10-PCS; 2016-12-21)
DX: I21.4 Non-ST elevation (NSTEMI) myocardial infarction (principal); I10 Essential (primary) hypertension; F17.210 Nicotine dependence, cigarettes, uncomplicated; D47.3 Essential (hemorrhagic) thrombocythemia; D50.9 Iron deficiency anemia, unspecified; R97.20 Elevated prostate specific antigen [PSA]; I25.10 Atherosclerotic heart disease of native coronary artery without angina pectoris; E78.5 Hyperlipidemia, unspecified; R79.89 Other specified abnormal findings of blood chemistry; Z72.89 Other problems related to lifestyle; Z87.11 Personal history of peptic ulcer disease

== ENCOUNTER 2017-03-02 08:51 | Inpatient (IN) | payer MEDICARE ==
[2017-03-02 09:01] VITALS: BMI 22.5
[2017-03-02 10:07] LABS: BASO # 0.1 K/uL (0.0-0.2); BASO % 0.9 % (0.0-2.0); EOS # 0.2 K/uL (0.0-0.7); EOS % 2.1 % (0.0-4.0); LYMPH # 1.9 K/uL (1.0-4.3); LYMPH % 22.2 % (20.0-40.0); MEAN CORPUSCULAR HEMOGLOBIN 21.8 pg (27.0-31.0); MEAN CORPUSCULAR HGB CONC 28.8 g/dL (33.0-37.0); MEAN PLATELET VOLUME 7.8 fL (7.2-11.7); MONO # 1.4 K/uL (0.0-0.8); MONO % 16.1 % (0.0-10.0); NEUT % 58.7 % (50.0-75.0); RBC 3.2 Mil/uL (4.40-5.90); RED CELL DISTRIBUTION WIDTH 24.8 % (11.5-14.5); WHITE BLOOD COUNT 8.5 K/uL (4.8-10.8)
[2017-03-02 10:15] LABS: ALBUMIN 3.6 g/dL (3.5-5.0)
[2017-03-02 10:17] LABS: MEAN CELL VOLUME 75.7 fL (80.0-94.0)
[2017-03-02 10:18] LABS: AST/SGOT 27 U/L (17-59); GFR AFRICAN-AMERICAN > 60; GFR NON-AFRICAN AMERICAN > 60
[2017-03-02 10:19] LABS: ALB/GLOB RATIO 0.9 (1.0-2.1); ALT/SGPT 29 U/L (21-72); BLOOD UREA NITROGEN 12 mg/dL (9-20); CALCIUM 9.4 mg/dl (8.6-10.4)
[2017-03-02 10:25] LABS: INR 1.2; PROTHROMBIN TIME 13.6 SECONDS (9.7-12.2)
[2017-03-02 10:28] LABS: CK-MB 0.37 ng/mL (0.0-3.38)
--- NOTE | 2017-03-02 10:51 | C.PDOC ---
History Of Present Illness Patient is a 72 y/o male, whose PMHx includes HTN, CAD, COPD, and anemia, that is sent to the ED by Dr. Andersen for evaluation of right lower leg pain with claudication. Otherwise, denies any skin changes, extremity weakness/numbness, tingling sensation, fever, chills, or any other associated symptoms at this time. Time Seen by Provider: 03/02/17 09:21 Chief Complaint (Nursing): Lower Extremity Problem/Injury History Per: Patient History/Exam Limitations: no limitations Onset/Duration Of Symptoms: Days Current Symptoms Are (Timing): Still Present Recent travel outside of the [place]: No Additional History Per: Patient Past Medical History Reviewed: Historical Data, Nursing Documentation, Vital Signs Vital Signs: Last Vital Signs Temp 97.9 F 03/02/17 16:00 Pulse 86 03/02/17 16:00 Resp 20 03/02/17 16:00 BP 122/57 L 03/02/17 16:00 Pulse Ox 97 03/02/17 16:00 - Medical History PMH: Anemia, CAD, COPD, HTN Denies: Chronic Kidney Disease - [facility] Procedures DILATION OF 2 COR ART WITH 3 DRUG-ELUT, PERC APPROACH (12/19/16) EXCISION OF DESCENDING COLON, ENDO, DIAGN (12/15/16) EXCISION OF SIGMOID COLON, ENDO, DIAGN (12/15/16) EXCISION OF STOMACH, ENDO, DIAGN (12/15/16) MEASURE OF CARDIAC SAMPL & PRESSURE, L HEART, PERC APPROACH (12/19/16) PLAIN RADIOGRAPHY OF LEFT HEART USING OTHER CONTRAST (12/19/16) PLAIN RADIOGRAPHY OF MULT COR ART USING OTH CONTRAST (12/19/16) TRANSFUSE NONAUT RED BLOOD CELLS IN PERIPH VEIN, PERC (12/19/16) Family History: States: Unknown Family Hx - Social History Hx Alcohol Use: No Hx Substance Use: No - Immunization History Hx Tetanus Toxoid Vaccination: No Hx Influenza Vaccination: No Hx Pneumococcal Vaccination: No Review Of Systems Except As Marked, All Systems Reviewed And Found Negative. Constitutional: Negative for: Fever, Chills Musculoskeletal: Positive for: Leg Pain (right) Skin: Negative for: Rash Neurological: Negative for: Weakness, Numbness Physical Exam - Physical Exam Appears: Non-toxic, No Acute Distress Skin: Normal Color, Warm (right lower extremity), Dry Head: Atraumatic, Normacephalic Eye(s): bilateral: Normal Inspection, EOMI Neck: Normal ROM, Supple Chest: Symmetrical, No Tenderness Cardiovascular: Rhythm Regular, No Murmur Respiratory: Normal Breath Sounds, No Accessory Muscle Use, No Rales, No Rhonchi , No Wheezing Gastrointestinal/Abdominal: Soft, No Tenderness Extremity: Normal ROM, No Tenderness, No Pedal Edema, No Calf Tenderness, Capillary Refill (< 2 sec.), No Deformity, No Swelling Pulses: Left Dorsalis Pedis: Decreased, Right Dorsalis Pedis: Decreased Neurological/Psych: Oriented x3, Normal Speech, Normal Cognition, Normal Motor, Normal Sensation ED Course And Treatment - Laboratory Results Result Diagrams: 03/02/17 10:03 03/02/17 10:03 ECG: Interpreted By Me, Viewed By Me ECG Rhythm: Sinus Rhythm ECG Interpretation: Normal Rate From EC (bpm) O2 Sat by Pulse Oximetry: 100 (on RA) Pulse Ox Interpretation: Normal Progress Note: Labs, EKG, CXR, arterial/venous duplex scan of lower extremities ordered and reviewed. Patient will be admitted to the hospital for further observation. Disposition - Disposition Disposition: HOSPITALIZED Disposition Time: 13:15 Condition: FAIR - Clinical Impression Clinical Impression: Claudication - PA / MAIL SERVICE COORDINATOR / Resident Statement MD/DO has reviewed & agrees with the documentation as recorded. - Scribe Statement The provider has reviewed the documentation as recorded by the Scribe Hermes Henderson All medical record entries made by the Scribe were at my direction and personally dictated by me. I have reviewed the chart and agree that the record accurately reflects my personal performance of the history, physical exam, medical decision making, and the department course for this patient. I have also personally directed, reviewed, and agree with the discharge instructions and disposition. Decision To Admit - Pt Status Changed To: Hospital Disposition Of: Inpatient - Admit Certification Admit to Inpatient:: After my assessment, the patient will require hospitalization for at least two midnights. This is because of the severity of symptoms shown, intensity of services needed, and/or the medical risk in this patient being treated as an outpatient. - InPatient: Physician Admission Certification: I certify that this patient requires 2 or more midnights of care for the following reason:: Patient with extensive cardiac history and claudication will need vascular involvement and possible surgical treatment. - . Bed Request Type: Regular Admitting Physician: Dao Dutton Patient Diagnosis: Claudication
--- NOTE | 2017-03-02 12:21 | RAD ---
PROCEDURE: CHEST RADIOGRAPH, 1 VIEW HISTORY: leg pain COMPARISON: 12/19/2016 FINDINGS: LUNGS: Biapical pleural thickening with upper lobe granulomatous changes. Moderate venous congestion. Bibasilar airspace opacities. Bilateral hilar prominence. Punctate nodular density at the right lung apex. PLEURA: As above. CARDIOVASCULAR: Cardiomegaly. OSSEOUS STRUCTURES: No significant abnormalities. VISUALIZED UPPER ABDOMEN: Normal. OTHER FINDINGS: None. IMPRESSION: Biapical pleural thickening with upper lobe granulomatous changes. Moderate venous congestion. Bibasilar airspace opacities. Bilateral hilar prominence. Punctate nodular density at the right lung apex. Cardiomegaly.
--- NOTE | 2017-03-02 13:28 | VASCLAB ---
PROCEDURE: HISTORY: claudication COMPARISON: None available. TECHNIQUE: Grayscale and duplex Doppler evaluation of the bilateral common femoral, femoral, profunda femoral, popliteal, posterior tibial, anterior tibial and dorsalis pedis arteries was performed. Report prepared by SUHA Bartlett, RVT FINDINGS: RIGHT LOWER EXTREMITY: * Common Femoral Artery: Peak Systolic Velocity - 121: Doppler Waveform: Biphasic: Plaque description - Heterogeneous * Profunda Femoral Artery: Peak Systolic Velocity - 150: Doppler Waveform: Biphasic.: Plaque description - Heterogeneous * Femoral Artery o Proximal Segment: Peak Systolic Velocity - 71: Doppler Waveform: Biphasic: Plaque description - Heterogeneous o Middle Segment: Peak Systolic Velocity - 142: Doppler Waveform: Biphasic: Plaque description - Heterogeneous o Distal Segment: Peak Systolic Velocity - 44: Doppler Waveform: Biphasic: Plaque description - Heterogeneous * Popliteal Artery o Proximal Segment: Peak Systolic Velocity - 64: Doppler Waveform: Biphasic: Plaque description - Heterogeneous o Middle Segment: Peak Systolic Velocity - 319: Doppler Waveform: Biphasic: Plaque description - Heterogeneous o Distal Segment: Peak Systolic Velocity - 45: Doppler Waveform: Biphasic: Plaque description - Heterogeneous * Posterior Tibial Artery: Peak Systolic Velocity - 45: Doppler Waveform: Biphasic: Plaque description - Heterogeneous * Anterior Tibial Artery: Peak Systolic Velocity - 49: Doppler Waveform: Biphasic: Plaque description - Heterogeneous * Dorsalis Pedis Artery: Peak Systolic Velocity - 24: Doppler Waveform: Biphasic: Plaque description - Heterogeneous LEFT LOWER EXTREMITY: * Common Femoral Artery: Peak Systolic Velocity - 298: Doppler Waveform: Biphasic: Plaque description - Heterogeneous * Profunda Femoral Artery: Peak Systolic Velocity - 202: Doppler Waveform: Biphasic: Plaque description - Heterogeneous * Femoral Artery o Proximal Segment: Peak Systolic Velocity - 157: Doppler Waveform: Biphasic: Plaque description - Heterogeneous o Middle Segment: Peak Systolic Velocity - 164: Doppler Waveform: Biphasic: Plaque description - Heterogeneous o Distal Segment: Peak Systolic Velocity - 94: Doppler Waveform: Biphasic: Plaque description - Heterogeneous * Popliteal Artery o Proximal Segment: Peak Systolic Velocity - 68: Doppler Waveform: Biphasic: Plaque description - Heterogeneous o Middle Segment: Peak Systolic Velocity - 66: Doppler Waveform: Biphasic: Plaque description - Heterogeneous o Distal Segment: Peak Systolic Velocity - 82: Doppler Waveform: Biphasic: Plaque description - Heterogeneous * Posterior Tibial Artery: Peak Systolic Velocity - 96: Doppler Waveform: Biphasic: Plaque description - Heterogeneous * Anterior Tibial Artery: Peak Systolic Velocity - 0: Doppler Waveform: Absent: Plaque description - Heterogeneous * Dorsalis Pedis Artery: Peak Systolic Velocity - 23: Doppler Waveform: Monophasic: Plaque description - Heterogeneous OTHER FINDINGS: RIGHT: 50-75% stenosis of the right mid popliteal artery. LEFT: Possible occlusion of the left mid anterior tibial artery. 50-75% stenosis of the left common femoral artery and proximal profunda femoral artery. 30-49% stenosis of the left proximal and mid superficial femoral artery. IMPRESSION: There is no evidence of hemodynamically significant arterial insufficiency in both lower extremities.
--- NOTE | 2017-03-02 13:28 | VASCLAB ---
PROCEDURE: Lower Extremity Venous Duplex Exam. HISTORY: pain/claudication PRIORS: None. TECHNIQUE: Bilateral common femoral, femoral, popliteal and posterior tibial, peroneal and great saphenous veins were evaluated. Flow was assessed with color Doppler, compressibility, assessment of phasic flow and augmentation response. Report prepared by Santana Andrade, SUHA, RVT FINDINGS: RIGHT: 1. Common Femoral Vein: 1.1. Compressibility - Fully compressible: Thrombus - None : Flow - Phasic: Augmentation -Normal: Reflux - None. 2. Femoral Vein: 2.1. Compressibility - Fully compressible: Thrombus - None : Flow - Phasic: Augmentation -Normal: Reflux - None. 3. Popliteal Vein: 3.1. Compressibility - Fully compressible: Thrombus - None : Flow - Phasic: Augmentation -Normal: Reflux - None. 4. Posterior Tibial Vein: 4.1. Compressibility - Fully compressible: Thrombus - None: Flow - Phasic: Augmentation -Normal: Reflux - None. 5. Peroneal Vein: 5.1. Compressibility - Fully compressible: Thrombus - None: Flow - Phasic: Augmentation -Normal: Reflux - None. 6. Great Saphenous Vein: 6.1. Compressibility - Fully compressible: Thrombus - None: Flow - Phasic: Augmentation - Normal: Reflux - None. LEFT: 1. Common Femoral Vein: 1.1. Compressibility - Fully compressible: Thrombus - None: Flow - Phasic: Augmentation -Normal: Reflux - None. 2. Femoral Vein: 2.1. Compressibility - Fully compressible: Thrombus - None: Flow - Phasic: Augmentation -Normal: Reflux - None. 3. Popliteal Vein: 3.1. Compressibility - Fully compressible: Thrombus - None : Flow - Phasic: Augmentation -Normal: Reflux - None. 4. Posterior Tibial Vein: 4.1. Compressibility - Fully compressible: Thrombus - None: Flow - Phasic: Augmentation -Normal: Reflux - None. 5. Peroneal Vein: 5.1. Compressibility - Fully compressible: Thrombus - None: Flow - Phasic: Augmentation -Normal: Reflux - None. 6. Great Saphenous Vein: 6.1. Compressibility - Fully compressible: Thrombus - None: Flow - Phasic: Augmentation - Normal: Reflux - None. OTHER FINDINGS: Right: None significant. Left: None significant. IMPRESSION: Right: No evidence of deep or superficial vein thrombosis of the right lower extremity. Normal valve function noted of the right side. Left: No evidence of deep or superficial vein thrombosis of the left lower extremity. Normal valve function noted of the left side.
--- NOTE | 2017-03-02 20:53 | CP.PCM.PCO ---
Physician Communication Note - Physician Communication Note Physician Communication Note: transfuse 2 u prbc 's stat
[2017-03-02] MEDS: Cilostazol 50 mg Tab UD PO SCH (22:24)
[2017-03-02] MEDS: Pantoprazole 40 mg EC Tab PO SCH (22:38)
[2017-03-03 07:10] LABS: HEMOGLOBIN 7.9 g/dL (12.0-18.0); MEAN CELL VOLUME 77.2 fL (80.0-94.0); MEAN CORPUSCULAR HEMOGLOBIN 23.1 pg (27.0-31.0); MEAN CORPUSCULAR HGB CONC 29.9 g/dL (33.0-37.0); MEAN PLATELET VOLUME 7.5 fL (7.2-11.7); RBC 3.43 Mil/uL (4.40-5.90); RED CELL DISTRIBUTION WIDTH 23.6 % (11.5-14.5); WHITE BLOOD COUNT 9.6 K/uL (4.8-10.8)
[2017-03-03 07:32] LABS: HDL CHOLESTEROL 45 mg/dL (30-70)
[2017-03-03 07:43] LABS: LDL CHOLESTEROL 35 mg/dL (0-129)
[2017-03-03] MEDS: Cilostazol 50 mg Tab UD PO SCH ×2 (10:58→18:25)
[2017-03-03] MEDS: Enoxaparin 40 mg Syringe SC SCH (10:58)
[2017-03-03] MEDS: Pantoprazole 40 mg EC Tab PO SCH ×2 (10:58→21:29)
--- NOTE | 2017-03-03 17:17 | CARD ---
APPROVED REPORT EKG Measurement Heart [id number] <Conclusion> Normal sinus rhythm Normal ECG
--- NOTE | 2017-03-03 19:22 | CP.PCM.CON ---
History of Present Illness - History of Present Illness History of Present Illness: 72 year old male with a history of HTN admitted with anemia. The patient was found to have a low hgb by his PMD and told to come to the hospital. He denies known bleeding and bruising. He denies chest pain and shortness of breath. He does admit to progressive fatigue and diminished appetite. Past medical history: HTN Past surgical history: None Family history: Father had stomach cancer Social history: 1/2ppd x 45 years, denies alcohol and illicit drug use. Allergies: NKA Review of systems: All remaining review of systems including HEENT, cardiovascular, respiratory, gastrointestinal, genitourinary, musculoskeletal, dermatologic, neurologic, and psychiatric are negative unless mentioned in the HPI. Past Patient History - Infectious Disease Hx of Infectious Diseases: None - Past Medical History & Family History Past Medical History?: Yes - Past Social History Smoking Status: Heavy Smoker > 10 Cigarettes Daily - CARDIAC Hx Hypertension: Yes - PULMONARY Hx Chronic Obstructive Pulmonary Disease (COPD): Yes - NEUROLOGICAL Hx Neurological Disorder: No - HEENT Hx HEENT Problems: No - RENAL Hx Chronic Kidney Disease: No - ENDOCRINE/METABOLIC Hx Endocrine Disorders: No - HEMATOLOGICAL/ONCOLOGICAL Hx Anemia: Yes - INTEGUMENTARY Hx Dermatological Problems: No - MUSCULOSKELETAL/RHEUMATOLOGICAL Hx Musculoskeletal Disorders: No Hx Falls: No - GASTROINTESTINAL Hx Gastrointestinal Disorders: No - GENITOURINARY/GYNECOLOGICAL Hx Genitourinary Disorders: No - PSYCHIATRIC Hx Substance Use: No - SURGICAL HISTORY Hx Surgeries: No - ANESTHESIA Hx Anesthesia: No Hx Anesthesia Reactions: No Meds Allergies/Adverse Reactions: Allergies Allergy/AdvReac Type Severity Reaction Status Date / Time No Known Allergies Allergy Verified 03/02/17 09:00 - Medications Medications: Current Medications Amlodipine Besylate (Norvasc) 10 mg PO DAILY [facility] Last Admin: 03/03/17 11:03 Dose: 10 mg Aspirin (Ecotrin) 81 mg PO DAILY [facility] Last Admin: 03/03/17 10:58 Dose: 81 mg Carvedilol (Coreg) 3.125 mg PO BID [facility] Last Admin: 03/03/17 18:25 Dose: 3.125 mg Cilostazol (Pletal) 50 mg PO BID [facility] Last Admin: 03/03/17 18:25 Dose: 50 mg Clopidogrel Bisulfate (Plavix) 75 mg PO DAILY [facility] Last Admin: 03/03/17 10:57 Dose: 75 mg Enalapril Maleate (Vasotec) 10 mg PO DAILY [facility] Last Admin: 03/03/17 10:57 Dose: 10 mg Enoxaparin Sodium (Lovenox) 40 mg SC DAILY [facility] Last Admin: 03/03/17 10:58 Dose: 40 mg Pantoprazole Sodium (Protonix Ec Tab) 40 mg PO Q12H [facility] Last Admin: 03/03/17 10:58 Dose: 40 mg Rosuvastatin Calcium (Crestor) 40 mg PO HS [facility] Last Admin: 03/02/17 21:39 Dose: 40 mg Sucralfate (Carafate Tab) 1 gm PO QID [facility] Last Admin: 03/03/17 18:25 Dose: 1 gm Physical Exam - Head Exam Head Exam: ATRAUMATIC - Eye Exam Eye Exam: Normal appearance - ENT Exam ENT Exam: Mucous Membranes Dry - Respiratory Exam Respiratory Exam: NORMAL BREATHING PATTERN - Cardiovascular Exam Cardiovascular Exam: +S1, +S2 - GI/Abdominal Exam GI & Abdominal Exam: Normal Bowel Sounds - Extremities Exam Extremities exam: Positive for: normal inspection - Neurological Exam Neurological exam: Oriented x3 - Psychiatric Exam Psychiatric exam: Normal Affect, Normal Mood - Skin Skin Exam: Warm Results - Vital Signs Recent Vital Signs: Last Vital Signs Temp 97.8 F 03/03/17 15:04 Pulse 78 03/03/17 15:04 Resp 18 03/03/17 15:04 BP 120/60 03/03/17 15:04 Pulse Ox 97 03/03/17 15:00 - Labs Result Diagrams: 03/04/17 14:04 03/04/17 14:04 Labs: Laboratory Results - last 24 hr 03/02/17 03/03/17 03/03/17 20:59 06:49 06:49 WBC 9.6 RBC 3.43 L Hgb 7.9 L Hct 26.5 L MCV 77.2 L MCH 23.1 L MCHC 29.9 L RDW 23.6 H Plt Count 312 MPV 7.5 Triglycerides 42 D Cholesterol 95 LDL Cholesterol Direct 35 HDL Cholesterol 45 Blood Type O POSITIVE Antibody Screen Negative Assessment & Plan (1) Anemia Assessment and Plan: work up consistent with iron deficiency anemia s/p PRBC transfusion IV iron Status: Acute
--- NOTE | 2017-03-03 20:47 | CP.PCM.CON ---
History of Present Illness - History of Present Illness History of Present Illness: Patient seen and evaluated Anemia requiring transfusion Prior GI work up negative Hematology on case Check CTA for b/l leg pain Hx of multi vessel PCI Continue ASA and Plavix Past Patient History - Infectious Disease Hx of Infectious Diseases: None - Past Medical History & Family History Past Medical History?: Yes - Past Social History Smoking Status: Heavy Smoker > 10 Cigarettes Daily - CARDIAC Hx Hypertension: Yes - PULMONARY Hx Chronic Obstructive Pulmonary Disease (COPD): Yes - NEUROLOGICAL Hx Neurological Disorder: No - HEENT Hx HEENT Problems: No - RENAL Hx Chronic Kidney Disease: No - ENDOCRINE/METABOLIC Hx Endocrine Disorders: No - HEMATOLOGICAL/ONCOLOGICAL Hx Anemia: Yes - INTEGUMENTARY Hx Dermatological Problems: No - MUSCULOSKELETAL/RHEUMATOLOGICAL Hx Musculoskeletal Disorders: No Hx Falls: No - GASTROINTESTINAL Hx Gastrointestinal Disorders: No - GENITOURINARY/GYNECOLOGICAL Hx Genitourinary Disorders: No - PSYCHIATRIC Hx Substance Use: No - SURGICAL HISTORY Hx Surgeries: No - ANESTHESIA Hx Anesthesia: No Hx Anesthesia Reactions: No Meds Allergies/Adverse Reactions: Allergies Allergy/AdvReac Type Severity Reaction Status Date / Time No Known Allergies Allergy Verified 03/02/17 09:00 - Medications Medications: Current Medications Amlodipine Besylate (Norvasc) 10 mg PO DAILY [facility] Last Admin: 03/03/17 11:03 Dose: 10 mg Aspirin (Ecotrin) 81 mg PO DAILY [facility] Last Admin: 03/03/17 10:58 Dose: 81 mg Carvedilol (Coreg) 3.125 mg PO BID [facility] Last Admin: 03/03/17 18:25 Dose: 3.125 mg Cilostazol (Pletal) 50 mg PO BID [facility] Last Admin: 03/03/17 18:25 Dose: 50 mg Clopidogrel Bisulfate (Plavix) 75 mg PO DAILY [facility] Last Admin: 03/03/17 10:57 Dose: 75 mg Enalapril Maleate (Vasotec) 10 mg PO DAILY [facility] Last Admin: 03/03/17 10:57 Dose: 10 mg Enoxaparin Sodium (Lovenox) 40 mg SC DAILY [facility] Last Admin: 03/03/17 10:58 Dose: 40 mg Ferric Sodium Gluconate Complex (Ferrlecit) 125 mg IVPB DAILY [facility] Stop: 03/09/17 10:01 Pantoprazole Sodium (Protonix Ec Tab) 40 mg PO Q12H [facility] Last Admin: 03/03/17 10:58 Dose: 40 mg Rosuvastatin Calcium (Crestor) 40 mg PO HS [facility] Last Admin: 03/02/17 21:39 Dose: 40 mg Sucralfate (Carafate Tab) 1 gm PO QID [facility] Last Admin: 03/03/17 18:25 Dose: 1 gm Results - Vital Signs Recent Vital Signs: Last Vital Signs Temp 97.8 F 03/03/17 15:04 Pulse 78 03/03/17 15:04 Resp 18 03/03/17 15:04 BP 120/60 03/03/17 15:04 Pulse Ox 97 03/03/17 15:00 - Labs Result Diagrams: 03/03/17 06:49 03/02/17 10:03 Labs: Laboratory Results - last 24 hr 03/02/17 03/03/17 03/03/17 20:59 06:49 06:49 WBC 9.6 RBC 3.43 L Hgb 7.9 L Hct 26.5 L MCV 77.2 L MCH 23.1 L MCHC 29.9 L RDW 23.6 H Plt Count 312 MPV 7.5 Triglycerides 42 D Cholesterol 95 LDL Cholesterol Direct 35 HDL Cholesterol 45 Blood Type O POSITIVE Antibody Screen Negative
[2017-03-03 23:32] VITALS: RESP 20
--- NOTE | 2017-03-04 06:56 | CP.PCM.HP ---
History of Present Illness - History of Present Illness History of Present Illness: CC: B/l leg pain HPI: Patient is a 72 y/o AA male, whose PMHx includes HTN, CAD s/p angioplasty in november 2016, COPD,chronic past smoker ,he also complains of cough and sputum production and anemia with multtiple blood transfusions, that is sent to the ED by Dr. Andersen for evaluation of right lower leg pain with claudication, he reports that he cannot walk even 1 block without expereincing pain. Otherwise, denies any skin changes, extremity weakness/numbness, tingling sensation, fever , chills, or any other associated symptoms at this time. Present on Admission - Present on Admission Any Indicators Present on Admission: Yes Review of Systems - Review of Systems Systems not reviewed;Unavailable: Acuity of Condition - Constitutional Constitutional: Fatigue, Lethargy - EENT Eyes: absent: As Per HPI, Blind Spots, Blurred Vision, Change in Vision, Decreased Night Vision, Diplopia, Discharge, Dry Eye, Exophthalmos, Floaters, Irritation, Itchy Eyes, Loss of Peripheral Vision, Pain, Photophobia, Requires Corrective Lenses, Sees Flashes, Spots in Vision, Tunnel Vision, Other Visual Disturbances, Loss of Vision, Other Ears: absent: As Per HPI, Decreased Hearing, Ear Discharge, Ear Pain, Tinnitus, Abnormal Hearing, Disequilibrium, Dizziness, Other Nose/Mouth/Throat: absent: As Per HPI, Epistaxis, Nasal Congestion, Nasal Discharge, Nasal Obstruction, Nasal Trauma, Nose Pain, Post Nasal Drip, Sinus Pain, Sinus Pressure, Bleeding Gums, Change in Voice, Dental Pain, Dry Mouth, Dysphagia, Halitosis, Hoarsness, Lip Swelling, Mouth Lesions, Mouth Pain, Odynophagia, Sore Throat, Throat Swelling, Tongue Swelling, Facial Pain, Neck Pain, Neck Mass, Other - Cardiovascular Cardiovascular: absent: As Per HPI, Acrocyanosis, Chest Pain, Chest Pain at Rest , Chest Pain with Activity, Claudication, Diaphoresis, Dyspnea, Dyspnea on Exertion, Edema, Irregular Heart Rhythm, Pain Radiating to Arm/Neck/Jaw, Leg Edema, Leg Ulcers, Lightheadedness, Orthopnea, Palpitations, Paroxysmal Nocturnal Dyspnea, Pedal Edema, Radiating Pain, Rapid Heart Rate, Slow Heart Rate, Syncope, Other - Respiratory Respiratory: Cough. absent: As Per HPI, Dyspnea, Hemoptysis, Dyspnea on Exertion, Wheezing, Snoring, Stridor, Pain on Inspiration, Chest Congestion, Excessive Mucous Production, Change in Mucous Color, Pain with Coughing, Other - Musculoskeletal Musculoskeletal: Muscle Cramps, Numbness, Radiating Pain into Limb, Tingling - Integumentary Integumentary: absent: As Per HPI, Acne, Alopecia, Bleeding Lesions, Change in Hair, Change in Nails, Change in Pigmentation, Changing Lesions, Dry Skin, Erythema, Furuncle, Hirsutism, Lesions, New Lesions, Non-Healing Lesions, Photosensitivity, Pruritus, Rash, Skin Pain, Skin Ulcer, Sores, Striae, Swelling , Unusual Bruising, Wounds, Jaundice, Other Past Patient History - Infectious Disease Hx of Infectious Diseases: None - Past Medical History & Family History Past Medical History?: Yes - Past Social History Smoking Status: Heavy Smoker > 10 Cigarettes Daily - CARDIAC Hx Hypertension: Yes - PULMONARY Hx Chronic Obstructive Pulmonary Disease (COPD): Yes - NEUROLOGICAL Hx Neurological Disorder: No - HEENT Hx HEENT Problems: No - RENAL Hx Chronic Kidney Disease: No - ENDOCRINE/METABOLIC Hx Endocrine Disorders: No - HEMATOLOGICAL/ONCOLOGICAL Hx Anemia: Yes - INTEGUMENTARY Hx Dermatological Problems: No - MUSCULOSKELETAL/RHEUMATOLOGICAL Hx Musculoskeletal Disorders: No Hx Falls: No - GASTROINTESTINAL Hx Gastrointestinal Disorders: No - GENITOURINARY/GYNECOLOGICAL Hx Genitourinary Disorders: No - PSYCHIATRIC Hx Substance Use: No - SURGICAL HISTORY Hx Surgeries: No - ANESTHESIA Hx Anesthesia: No Hx Anesthesia Reactions: No Meds Allergies/Adverse Reactions: Allergies Allergy/AdvReac Type Severity Reaction Status Date / Time No Known Allergies Allergy Verified 03/02/17 09:00 Physical Exam - Constitutional Appears: No Acute Distress - Head Exam Head Exam: ATRAUMATIC, NORMAL INSPECTION, NORMOCEPHALIC - Eye Exam Additional comments: palor in eyes - Respiratory Exam Respiratory Exam: Accessory Muscle Use, Rhonchi - Cardiovascular Exam Cardiovascular Exam: +S1, +S2 Additional comments: S3 positive - GI/Abdominal Exam GI & Abdominal Exam: Normal Bowel Sounds, Soft. absent: Tenderness - Rectal Exam Additional comments: enlarged prostrate - Extremities Exam Extremities exam: Positive for: calf tenderness, pedal edema, tenderness Additional comments: dark skin below knees b/l LE Absent DP Decresed popliteal artery pulsation dark discoloration mid calf area - Neurological Exam Neurological exam: Alert, CN II-XII Intact, Normal Gait, Oriented x3, Reflexes Normal - Psychiatric Exam Psychiatric exam: Normal Affect, Normal Mood - Skin Skin Exam: Pallor Additional comments: atrophic skin Results - Vital Signs Recent Vital Signs: Last Vital Signs Temp 98.6 F 03/03/17 23:29 Pulse 77 03/03/17 23:29 Resp 20 03/03/17 23:29 BP 98/59 L 03/03/17 23:29 Pulse Ox 100 03/03/17 23:29 - Labs Result Diagrams: 03/03/17 06:49 03/02/17 10:03 Labs: Laboratory Results - last 24 hr 03/02/17 03/03/17 03/03/17 20:59 06:49 06:49 WBC 9.6 RBC 3.43 L Hgb 7.9 L Hct 26.5 L MCV 77.2 L MCH 23.1 L MCHC 29.9 L RDW 23.6 H Plt Count 312 MPV 7.5 Triglycerides 42 D Cholesterol 95 LDL Cholesterol Direct 35 HDL Cholesterol 45 Blood Type O POSITIVE Antibody Screen Negative Assessment & Plan (1) CAD S/P percutaneous coronary angioplasty Status: Acute (2) Claudication Status: Acute (3) Anemia Status: Acute (4) Hypertension Status: Acute
--- NOTE | 2017-03-04 07:25 | CP.PCM.PN ---
Subjective - Date & Time of Evaluation Date of Evaluation: 03/04/17 Time of Evaluation: 20:00 - Subjective Subjective: pt underwent angiogram on LE, pt is afebrile, feeling better Objective - Vital Signs/Intake and Output Vital Signs (last 24 hours): Temp Pulse Resp BP Pulse Ox 98.6 F 77 20 98/59 L 100 03/03/17 23:29 03/03/17 23:29 03/03/17 23:29 03/03/17 23:29 03/03/17 23:29 - Medications Medications: Current Medications Amlodipine Besylate (Norvasc) 10 mg PO DAILY [facility] Last Admin: 03/03/17 11:03 Dose: 10 mg Aspirin (Ecotrin) 81 mg PO DAILY [facility] Last Admin: 03/03/17 10:58 Dose: 81 mg Carvedilol (Coreg) 3.125 mg PO BID [facility] Last Admin: 03/03/17 18:25 Dose: 3.125 mg Cilostazol (Pletal) 50 mg PO BID [facility] Last Admin: 03/03/17 18:25 Dose: 50 mg Clopidogrel Bisulfate (Plavix) 75 mg PO DAILY [facility] Last Admin: 03/03/17 10:57 Dose: 75 mg Enalapril Maleate (Vasotec) 10 mg PO DAILY [facility] Last Admin: 03/03/17 10:57 Dose: 10 mg Enoxaparin Sodium (Lovenox) 40 mg SC DAILY [facility] Last Admin: 03/03/17 10:58 Dose: 40 mg Ferric Sodium Gluconate Complex (Ferrlecit) 125 mg IVPB DAILY [facility] Stop: 03/09/17 10:01 Pantoprazole Sodium (Protonix Ec Tab) 40 mg PO Q12H [facility] Last Admin: 03/03/17 21:29 Dose: 40 mg Rosuvastatin Calcium (Crestor) 40 mg PO HS [facility] Last Admin: 03/03/17 21:21 Dose: 40 mg Sucralfate (Carafate Tab) 1 gm PO QID [facility] Last Admin: 03/03/17 21:21 Dose: 1 gm - Labs Labs: 03/03/17 06:49 PT 13.6 SECONDS (9.7-12.2) H 03/02/17 10:03 INR 1.2 03/02/17 10:03 APTT 30 SECONDS (21-34) 07/06/17 10:03 - Constitutional Appears: No Acute Distress - Head Exam Head Exam: ATRAUMATIC, NORMAL INSPECTION, NORMOCEPHALIC - Eye Exam Eye Exam: EOMI, Normal appearance, PERRL Pupil Exam: NORMAL ACCOMODATION, PERRL - Respiratory Exam Respiratory Exam: Clear to Ausculation Bilateral, NORMAL BREATHING PATTERN - Cardiovascular Exam Cardiovascular Exam: REGULAR RHYTHM, +S1, +S2. absent: Murmur - GI/Abdominal Exam GI & Abdominal Exam: Soft, Normal Bowel Sounds. absent: Tenderness Assessment and Plan (1) CAD S/P percutaneous coronary angioplasty Status: Acute (2) Claudication Status: Acute (3) Anemia Status: Acute (4) Hypertension Status: Acute
[2017-03-04 09:35] LABS: FERRITIN 7.6 ng/mL
[2017-03-04] MEDS ORDERED: Ferric Sodium Gluconat Complex 62.5 mg/5 ml Vial IVPB SCH (10:00)
[2017-03-04 10:06] LABS: FOLATE 15.2 ng/mL
[2017-03-04] MEDS: Enoxaparin 40 mg Syringe SC SCH (10:58)
[2017-03-04] MEDS: Cilostazol 50 mg Tab UD PO SCH ×2 (11:00→19:00)
[2017-03-04] MEDS: Pantoprazole 40 mg EC Tab PO SCH (11:02)
[2017-03-04] MEDS ORDERED: Iohexol 350mg/ml 100 ML ONE (12:09)
[2017-03-04 14:09] LABS: BASO # 0.1 K/uL (0.0-0.2); BASO % 0.9 % (0.0-2.0); EOS # 0.3 K/uL (0.0-0.7); EOS % 4.6 % (0.0-4.0); HEMOGLOBIN 8.8 g/dL (12.0-18.0); LYMPH # 1.8 K/uL (1.0-4.3); LYMPH % 24.8 % (20.0-40.0); MEAN CELL VOLUME 78.1 fL (80.0-94.0); MEAN CORPUSCULAR HEMOGLOBIN 23.1 pg (27.0-31.0); MEAN CORPUSCULAR HGB CONC 29.6 g/dL (33.0-37.0); MEAN PLATELET VOLUME 7.4 fL (7.2-11.7); MONO # 0.7 K/uL (0.0-0.8); MONO % 9.8 % (0.0-10.0); NEUT # 4.5 K/uL (1.8-7.0); NEUT % 59.9 % (50.0-75.0); RBC 3.81 Mil/uL (4.40-5.90); RED CELL DISTRIBUTION WIDTH 22.6 % (11.5-14.5); WHITE BLOOD COUNT 7.4 K/uL (4.8-10.8)
[2017-03-04 14:20] LABS: GFR AFRICAN-AMERICAN > 60; GFR NON-AFRICAN AMERICAN > 60
[2017-03-04 14:21] LABS: BLOOD UREA NITROGEN 14 mg/dL (9-20); CALCIUM 9.4 mg/dl (8.6-10.4)
[2017-03-04 17:18] VITALS: BP 107/61; PULSE 88; TEMP 98.5; O2SAT 95
--- NOTE | 2017-03-04 17:33 | CT ---
EXAM: CT Abdomen and Pelvis With Intravenous Contrast CT Left Lower Extremity With Intravenous Contrast CT Right Lower Extremity With Intravenous Contrast CLINICAL HISTORY: 72 years old, male; Pain; Lower leg; Bilateral; Additional info: R/O artery. Lower ext weakness/numbness TECHNIQUE: Axial computed tomography images of the abdomen, pelvis and lower extremities with intravenous contrast during the arterial phase of enhancement. This CT exam was performed using one or more of the following dose reduction techniques: automated exposure control, adjustment of the mA and/or kV according to patient size, and/or use of iterative reconstruction technique. Coronal and sagittal reformatted images were created and reviewed. EXAM DATE/TIME: Exam ordered 03/03/2017 5:54 PM COMPARISON: No relevant prior studies available. FINDINGS: EXAM: CT Abdomen and Pelvis With Intravenous Contrast CT Left Lower Extremity With Intravenous Contrast CT Right Lower Extremity With Intravenous Contrast CLINICAL HISTORY: 72 years old, male; Pain; Lower leg; Bilateral; Additional info: R/O artery. Lower ext weakness/numbness TECHNIQUE: Axial computed tomography images of the abdomen, pelvis and lower extremities with intravenous contrast during the arterial phase of enhancement. This CT exam was performed using one or more of the following dose reduction techniques: automated exposure control, adjustment of the mA and/or kV according to patient size, and/or use of iterative reconstruction technique. Coronal and sagittal reformatted images were created and reviewed. EXAM DATE/TIME: Exam ordered 03/03/2017 5:54 PM COMPARISON: No relevant prior studies available. FINDINGS: Reason for Exam: r/o artery lower ext weakness/numbness Facility Exam ID and Description: CT [facility] ANGIOGRAPHY LOW EXT W/WO CONT FOCI EXAM: CT Angiography of the Right Lower Extremity With Intravenous Contrast CLINICAL HISTORY: 72 years old, male; Pain; Lower leg; Bilateral; Additional info: R/O artery. Lower ext weakness/numbness TECHNIQUE: Axial computed tomographic angiography images of the right lower extremity with intravenous contrast using CT angiography protocol. This CT exam was performed using one or more of the following dose reduction techniques: automated exposure control, adjustment of the mA and/or kV according to patient size, and/or use of iterative reconstruction technique. CONTRAST: 150 mL of visipaque administered intravenously. EXAM DATE/TIME: Exam ordered 03/03/2017 5:54 PM COMPARISON: No relevant prior studies available. FINDINGS: VASCULATURE: Aorta: Generalized mild atherosclerotic disease. No aneurysm. Celiac axis: Unremarkable Superior mesenteric artery: Unremarkable Inferior mesenteric artery: Unremarkable Renal arteries: Single renal artery bilaterally. No stenosis. Common iliac arteries: Mild atherosclerotic changes. No stenosis. External iliac arteries: Right- 50% stenosis in the mid external iliac artery. Left-unremarkable Internal iliac arteries: Atherosclerotic change. No stenosis. Superficial femoral artery: Right- generalized moderate atherosclerotic disease with no stenosis. Left-mild generalized atherosclerotic disease. No stenosis Popliteal arteries: Right- approximate 60-70% stenosis proximally. Left-no stenosis Runoff vessels to lower leg: Three-vessel runoff to both ankles Abdomen: Liver: Unremarkable Spleen: Unremarkable Adrenal glands: Unremarkable Kidneys: Imaged incompletely. The visualized portions are normal Gallbladder: There are gallstones Stomach and bowel: Unremarkable Soft tissues: Tiny bubbles of gas are noted within the subcutaneous fat of the right anterior abdominal wall the level the umbilicus likely secondary to subcutaneous injection. There is a tiny umbilical hernia containing fat Reproductive: the prostate measures 4.3 x 5.2 x 6.5 cm LOWER EXTREMITY: Bones/joints: No acute fracture. No dislocation. Soft tissues: Unremarkable. No abnormal contrast enhancement. IMPRESSION: 1. Generalized mild atherosclerotic disease 2. 50% stenosis in the right mid external iliac artery. 3. 60-70% stenosis in right popliteal artery 4. No hemodynamically significant stenosis seen on the left 5. Three-vessel runoff to both lower legs 6. Gallstones 7. Tiny umbilical hernia containing fat
--- NOTE | 2017-03-04 20:06 | CP.PCM.PN ---
Subjective - Date & Time of Evaluation Date of Evaluation: 03/04/17 Time of Evaluation: 20:03 - Subjective Subjective: PGY1- House Doctor I was notified by the nursing staff that the patient wanted to AMA. Dr. Dutton is aware and is okay with the patient leaving against medical advice. Patient signed and has left AMA understanding the risks involved. Objective - Vital Signs/Intake and Output Vital Signs (last 24 hours): Temp Pulse Resp BP Pulse Ox 98.5 F 88 20 107/61 95 03/04/17 15:17 03/04/17 15:17 03/04/17 15:17 03/04/17 15:17 03/04/17 15:17 Intake and Output: 03/04/17 03/05/17 18:59 06:59 Intake Total 560 Balance 560 - Medications Medications: Current Medications Amlodipine Besylate (Norvasc) 10 mg PO DAILY [facility] Last Admin: 03/04/17 10:59 Dose: 10 mg Aspirin (Ecotrin) 81 mg PO DAILY [facility] Last Admin: 03/04/17 10:58 Dose: 81 mg Carvedilol (Coreg) 3.125 mg PO BID [facility] Last Admin: 03/04/17 19:00 Dose: 3.125 mg Cilostazol (Pletal) 50 mg PO BID [facility] Last Admin: 03/04/17 19:00 Dose: 50 mg Clopidogrel Bisulfate (Plavix) 75 mg PO DAILY [facility] Last Admin: 03/04/17 10:54 Dose: 75 mg Enalapril Maleate (Vasotec) 10 mg PO DAILY [facility] Last Admin: 03/04/17 10:58 Dose: 10 mg Enoxaparin Sodium (Lovenox) 40 mg SC DAILY [facility] Last Admin: 03/04/17 10:58 Dose: 40 mg Ferric Sodium Gluconate Complex (Ferrlecit) 125 mg IVPB DAILY [facility] Stop: 03/09/17 10:01 Last Admin: 03/04/17 10:59 Dose: 125 mg Pantoprazole Sodium (Protonix Ec Tab) 40 mg PO Q12H [facility] Last Admin: 03/04/17 11:02 Dose: 40 mg Rosuvastatin Calcium (Crestor) 40 mg PO HS [facility] Last Admin: 03/03/17 21:21 Dose: 40 mg Sucralfate (Carafate Tab) 1 gm PO QID [facility] Last Admin: 03/04/17 19:00 Dose: 1 gm - Labs Labs: 03/04/17 14:04 03/04/17 14:04 PT 13.6 SECONDS (9.7-12.2) H 03/02/17 10:03 INR 1.2 03/02/17 10:03 APTT 30 SECONDS (21-34) 03/02/17 10:03
--- NOTE | 2017-03-05 07:03 | CP.PCM.PN ---
Subjective - Date & Time of Evaluation Date of Evaluation: 03/04/17 - Subjective Subjective: Patient seen and evaluated. Denies chest pain and dyspnea CTA done for PAD results pending Objective - Vital Signs/Intake and Output Vital Signs (last 24 hours): Temp Pulse Resp BP Pulse Ox 98.5 F 88 20 107/61 95 03/04/17 15:17 03/04/17 15:17 03/04/17 15:17 03/04/17 15:17 03/04/17 15:17 - Labs Labs: 03/04/17 14:04 03/04/17 14:04 PT 13.6 SECONDS (9.7-12.2) H 03/02/17 10:03 INR 1.2 03/02/17 10:03 APTT 30 SECONDS (21-34) 03/02/17 10:03
--- NOTE | 2017-03-06 00:31 | CP.PCM.PN ---
Subjective - Date & Time of Evaluation Date of Evaluation: 03/04/17 Time of Evaluation: 17:00 - Subjective Subjective: Feeling better Objective - Vital Signs/Intake and Output Vital Signs (last 24 hours): Temp Pulse Resp BP Pulse Ox 98.5 F 88 20 107/61 95 03/04/17 15:17 03/04/17 15:17 03/04/17 15:17 03/04/17 15:17 03/04/17 15:17 - Labs Labs: 03/04/17 14:04 03/04/17 14:04 PT 13.6 SECONDS (9.7-12.2) H 03/02/17 10:03 INR 1.2 03/02/17 10:03 APTT 30 SECONDS (21-34) 03/02/17 10:03 - Head Exam Head Exam: ATRAUMATIC - Eye Exam Eye Exam: Normal appearance - ENT Exam ENT Exam: Mucous Membranes Dry - Respiratory Exam Respiratory Exam: NORMAL BREATHING PATTERN - Cardiovascular Exam Cardiovascular Exam: +S1, +S2 - GI/Abdominal Exam GI & Abdominal Exam: Normal Bowel Sounds - Extremities Exam Extremities Exam: Normal Inspection Assessment and Plan (1) Anemia Assessment & Plan: iron deficiency s/p PRBC IV iron f/u FOBT Status: Acute
--- NOTE | 2017-03-07 14:38 | CP.PCM.DIS ---
Provider - Provider Date of Admission: 03/02/17 13:15 Attending physician: Dao Dutton MD Time Spent in preparation of Discharge (in minutes): 10 Diagnosis - Discharge Diagnosis (1) CAD S/P percutaneous coronary angioplasty Status: Acute (2) Claudication Status: Acute (3) Anemia Status: Acute (4) Hypertension Status: Acute Hospital Course - Lab Results Lab Results: Most Recent Lab Values WBC 7.4 K/uL (4.8-10.8) 03/04/17 14:04 RBC 3.81 Mil/uL (4.40-5.90) L 03/04/17 14:04 Hgb 8.8 g/dL (12.0-18.0) L 03/04/17 14:04 Hct 29.8 % (35.0-51.0) L 03/04/17 14:04 MCV 78.1 fL (80.0-94.0) L 03/04/17 14:04 MCH 23.1 pg (27.0-31.0) L 03/04/17 14:04 MCHC 29.6 g/dL (33.0-37.0) L 03/04/17 14:04 RDW 22.6 % (11.5-14.5) H 03/04/17 14:04 Plt Count 293 K/uL (130-400) 03/04/17 14:04 MPV 7.4 fL (7.2-11.7) 03/04/17 14:04 Neut % (Auto) 59.9 % (50.0-75.0) 03/04/17 14:04 Lymph % (Auto) 24.8 % (20.0-40.0) 03/04/17 14:04 Iron % (Auto) 9.8 % (0.0-10.0) 03/04/17 14:04 Eos % (Auto) 4.6 % (0.0-4.0) H 03/04/17 14:04 Baso % (Auto) 0.9 % (0.0-2.0) 03/04/17 14:04 Neut # 4.5 K/uL (1.8-7.0) 03/04/17 14:04 Lymph # 1.8 K/uL (1.0-4.3) 03/04/17 14:04 Iron # 0.7 K/uL (0.0-0.8) 03/04/17 14:04 Eos # 0.3 K/uL (0.0-0.7) 03/04/17 14:04 Baso # 0.1 K/uL (0.0-0.2) 03/04/17 14:04 Retic Count 2.8 % (0.5-1.5) H D 03/04/17 08:23 PT 13.6 SECONDS (9.7-12.2) H 03/02/17 10:03 INR 1.2 03/02/17 10:03 APTT 30 SECONDS (21-34) 03/02/17 10:03 D-Dimer, Quantitative 693 ng/mlDDU (0-243) H 03/02/17 10:03 Sodium 137 mmol/L (132-148) 03/04/17 14:04 Potassium 4.0 mmol/L (3.6-5.2) 03/04/17 14:04 Chloride 107 mmol/L (98-107) 03/04/17 14:04 Carbon Dioxide 20 mmol/L (22-30) L 03/04/17 14:04 Anion Gap 14 (10-20) 03/04/17 14:04 BUN 14 mg/dL (9-20) 03/04/17 14:04 Creatinine 1.0 MG/DL (0.8-1.5) 03/04/17 14:04 Est GFR ( Amer) > 60 03/04/17 14:04 Est GFR (Non-Af Amer) > 60 03/04/17 14:04 Random Glucose 140 mg/dL (75-110) H 03/04/17 14:04 Calcium 9.4 mg/dl (8.6-10.4) 03/04/17 14:04 Ferritin 7.6 ng/mL 03/04/17 08:23 Total Bilirubin 0.3 mg/dL (0.2-1.3) 03/02/17 10:03 AST 27 U/L (17-59) 03/02/17 10:03 ALT 29 U/L (21-72) 03/02/17 10:03 Alkaline Phosphatase 94 U/L (38-126) 03/02/17 10:03 Total Creatine Kinase 46 U/L (55-170) L 03/02/17 10:03 CK-MB (Mass) 0.37 ng/mL (0.0-3.38) 03/02/17 10:03 Total Protein 7.4 g/dL (6.3-8.3) 03/02/17 10:03 Albumin 3.6 g/dL (3.5-5.0) 03/02/17 10:03 Globulin 3.8 gm/dL (2.2-3.9) 03/02/17 10:03 Albumin/Globulin Ratio 0.9 (1.0-2.1) L 03/02/17 10:03 Triglycerides 42 mg/dL (0-149) D 03/03/17 06:49 Cholesterol 95 mg/dL (0-199) 03/03/17 06:49 LDL Cholesterol Direct 35 mg/dL (0-129) 03/03/17 06:49 HDL Cholesterol 45 mg/dL (30-70) 03/03/17 06:49 Vitamin B12 753 pg/mL (239-931) 03/04/17 08:23 Folate 15.2 ng/mL 03/04/17 08:23 Blood Type O POSITIVE 03/02/17 20:59 Antibody Screen Negative 03/02/17 20:59 - Hospital Course Hospital Course: I was notified by the nursing staff that the patient wanted to AMA. Patient signed and has left AMA understanding the risks involved. Discharge Exam - Head Exam Head Exam: ATRAUMATIC, NORMAL INSPECTION, NORMOCEPHALIC - Eye Exam Eye Exam: EOMI, Normal appearance, PERRL Pupil Exam: NORMAL ACCOMODATION, PERRL - Respiratory Exam Respiratory Exam: Clear to PA & Lateral, NORMAL BREATHING PATTERN - Cardiovascular Exam Cardiovascular Exam: REGULAR RHYTHM - GI/Abdominal Exam GI & Abdominal Exam: Normal Bowel Sounds Discharge Plan - Follow Up Plan Condition: FAIR Disposition: AGAINST MEDICAL ADVICE
== END 2017-03-04 20:35 | disposition left against medical advice (07) | DRG 301 ==
LOC: C.ER 08:51 → C.9E 13:15 → C.3T 14:34
PROVIDERS: ADMIT Internal Medicine; ATTEND Internal Medicine
PROC: 30233N1 Transfusion of Nonautologous Red Blood Cells into Peripheral Vein, Percutaneous Approach (ICD-10-PCS; principal; 2017-03-02)
DX: I70.211 Atherosclerosis of native arteries of extremities with intermittent claudication, right leg (principal); D50.9 Iron deficiency anemia, unspecified; I25.10 Atherosclerotic heart disease of native coronary artery without angina pectoris; I10 Essential (primary) hypertension; J44.9 Chronic obstructive pulmonary disease, unspecified; F17.210 Nicotine dependence, cigarettes, uncomplicated; Z79.02 Long term (current) use of antithrombotics/antiplatelets; Z79.82 Long term (current) use of aspirin; Z98.61 Coronary angioplasty status